=== PATIENT | male | born 1950 | race Caucasian/White ===

== ENCOUNTER 2018-06-16 12:43 | Emergency (ER) | payer OTHER ==
[2018-06-16 13:53] LABS: Absolute Lymphocytes (CBC) 0.9 K/uL (0.7-4.9); Absolute Monocytes 0.9 K/uL (0.1-1.3); Absolute Neutrophil 8.8 K/uL (1.8-8.0); Basophils % 0.5 % (0-1.3); Eosinophils % 0.7 % (0-4.4); Hematocrit 45.6 % (39.6-49.0); Lymphocytes % 8.8 % (15.3-44.8); MCH 29.7 pg (27.0-35.0); MCV 84.8 fL (80-100); MPV 8.4 fL (7.6-11.3); Monocytes % 8.6 % (3.3-12.3); RBC Red Blood Cell Count 5.38 M/uL (4.33-5.43)
[2018-06-16 13:56] LABS: Protime INR 1.11
[2018-06-16 14:08] LABS: ALT/SGPT 42 U/L (12-78); AST/SGOT 22 U/L (15-37); Albumin 3.7 g/dL (3.4-5.0); Alkaline Phosphatase 139 U/L (45-117); BUN Blood Urea Nitrogen 13 mg/dL (7-18); Bicarbonate 26 mmol/L (21-32); Bilirubin Direct 0.2 mg/dL (0-0.2); Bilirubin Total 0.9 mg/dL (0.2-1.0); Glucose Level 115 mg/dL (74-106); Magnesium 2.4 mg/dL (1.8-2.4); NT PRO-BNP 65 pg/mL (<125); Potassium 3.9 mmol/L (3.5-5.1); Protein, Total 7.6 g/dL (6.4-8.2); Sodium Level 139 mmol/L (136-145); Troponin (Emerg Dept Use Only) < 0.02 ng/mL (0.0-0.045)
--- NOTE | 2018-06-16 14:38 | RAD REPORT ---
EXAM DESCRIPTION: Marylin Dempsey (2 Views)06/16/2018 2:16 pm CLINICAL HISTORY: Chest pain COMPARISON: 2012 FINDINGS: The lungs appear clear of acute infiltrate. The heart is normal size IMPRESSION: No acute abnormalities displayed
--- NOTE | 2018-06-16 15:52 | ER ---
Nurse's Notes [facility] Name: Blake Nixon Age: 68 yrs Sex: Male : 1950 Arrival Date: 06/16/2018 Time: 12:46 Bed 20 Private MD: Modesta Concepcion F Diagnosis: Chest pain, unspecified Presentation: 06/16 13:14 Presenting complaint: Patient states: has chronic sinus issues, sinus drainage, for iw past week has had pain in chest when he takes a deep breath X 1 week. Transition of care: patient was not received from another setting of care. Onset of symptoms was June 09, 2018. Risk Assessment: Do you want to hurt yourself or someone else? Patient reports no desire to harm self or others. Initial Sepsis Screen: Does the patient meet any 2 criteria? No. Patient's initial sepsis screen is negative. Does the patient have a suspected source of infection? No. Patient's initial sepsis screen is negative. Care prior to arrival: None. 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 - Social history:: Smoking status: . - Ebola Screening: : Patient negative for fever greater than or equal to 101.5 degrees Fahrenheit, and additional compatible Ebola Virus Disease symptoms Patient denies exposure to infectious person Patient denies travel to an Ebola-affected area in the 21 days before illness onset No symptoms or risks identified at this time. Screenin:32 Abuse screen: Denies threats or abuse. Nutritional screening: No deficits noted. em Tuberculosis screening: No symptoms or risk factors identified. Fall Risk None identified. Assessment: 13:34 General: Appears in no apparent distress. comfortable, Behavior is calm, cooperative, em Denies fever. Pain: Complains of pain in mid-sternal area Pain does not radiate. Pain began 2-3 days ago. Neuro: Level of Consciousness is awake, alert, obeys commands, Oriented to person, place, time, situation. Cardiovascular: Reports chest pain, Denies palpitations, shortness of breath, Capillary refill < 3 seconds Patient's skin is warm and dry. Respiratory: Reports pain with cough pain with movement Airway is patent Respiratory effort is even, unlabored, Respiratory pattern is regular, symmetrical, Breath sounds are clear bilaterally. GI: Abdomen is flat. : No signs and/or symptoms were reported regarding the genitourinary system. EENT: No signs and/or symptoms were reported regarding the EENT system. Derm: Skin is intact, Skin is pink, warm \T\ dry. Musculoskeletal: Range of motion: intact in all extremities. 13:45 General: The previous assessment is accurate. Call light remains within reach. . ss 14:30 Reassessment: Patient appears in no apparent distress at this time. Patient and/or em family updated on plan of care and expected duration. Pain level reassessed. Patient is alert, oriented x 3, equal unlabored respirations, skin warm/dry/pink. 15:54 Reassessment: Patient appears in no apparent distress at this time. Patient and/or em family updated on plan of care and expected duration. Pain level reassessed. Patient is alert, oriented x 3, equal unlabored respirations, skin warm/dry/pink. provider at bedside. 16:18 Reassessment: Patient appears in no apparent distress at this time. Patient and/or em family updated on plan of care and expected duration. Pain level reassessed. Patient is alert, oriented x 3, equal unlabored respirations, skin warm/dry/pink. Patient states symptoms have improved. Vital Signs: 13:17 BP 136 / 93; Pulse 116; Resp 18 S; Temp 99.0; Pulse Ox 100% on R/A; iw 13:48 BP 140 / 97; Pulse 97; Resp 18; Pulse Ox 94% on R/A; Pain 3/10; em 14:30 BP 131 / 81; Pulse 98; Resp 18; Pulse Ox 99% on R/A; Pain 3/10; em 16:06 BP 125 / 86; Pulse 96; Resp 16; Pulse Ox 99% on R/A; em ED Course: 12:46 Patient arrived in ED. as 12:46 Modesta Concepcion MD is Private Physician. as 13:10 Sergio Izaguirre LVN is Primary Nurse. em 13:13 Scott Vo NP is PHCP. pm1 13:13 Allan Easton MD is Attending Physician. pm1 13:16 Triage completed. iw 13:20 Arm band placed on. iw 13:31 Initial lab(s) drawn, by me, sent to lab. Inserted saline lock: 20 gauge in right em antecubital area, using aseptic technique. Blood collected. Patient maintains SpO2 saturation greater than 95% on room air. 13:32 Patient has correct armband on for positive identification. Placed in gown. Bed in low em position. Call light in reach. Side rails up X2. therapeutic specialist on. Pulse ox on. NIBP on. 13:39 EKG done, by technology teacher. reviewed by Scott Vo NP. at1 14:15 Chest Pa And Lat (2 Views) XRAY In Process Unspecified. EDMS 15:51 Modesta Concepcion MD is Referral Physician. pm1 16:15 No provider procedures requiring assistance completed. IV discontinued, intact, em bleeding controlled, No redness/swelling at site. Pressure dressing applied. Administered Medications: No medications were administered Outcome: 15:51 Discharge ordered by MD. pm1 16:15 Discharged to home via wheelchair. em 16:15 Condition: good 16:15 Discharge instructions given to patient, Instructed on discharge instructions, follow up and referral plans. no drinking with medication, no driving heavy equipment, medication usage, Demonstrated understanding of instructions, follow-up care, medications, Prescriptions given X 3. 16:20 Patient left the ED. em Signatures: Dispatcher [employer] EDTN Sergio Izaguirre LVN DEAN OF ADMISSIONS em Courtney Snow Irene, BRANDI PAZ Veronica Malloy RN RN Mary Peña, piece hand EKG Tat1 Scott Vo NP QUALITY CONTROLLER pm1
--- NOTE | 2018-06-16 15:52 | EDPHYS ---
Physician Documentation [facility] Name: Blake Nixon Age: 68 yrs Sex: Male : 1950 Arrival Date: 06/16/2018 Time: 12:46 Bed 20 Private MD: Modesta Concepcion F ED Physician Allan Easton HPI: 06/16 14:00 This 68 yrs old Male presents to ER via Wheelchair with complaints of Chest pm1 Pain. 14:00 The patient or guardian reports chest pain that is located primarily in the mid-sternal pm1 area. Onset: 1 week(s) ago. The pain does not radiate. Associated signs and symptoms: Pertinent positives: resolution of cough recently due to sinus issues and post-nasal drainge, Pertinent negatives: abdominal pain, headache, nausea, shortness of breath, vomiting. The chest pain is described as sharp. Duration: The patient or guardian reports multiple episodes, that have now resolved. Modifying factors: the symptoms are aggravated by cough, deep breath, palpation of area. Severity of pain: in the emergency department the pain has resolved. The patient has not experienced similar symptoms in the past. The patient has not recently seen a physician. Patient recalls lifting refrigerator prior to onset of symptoms. Historical: - Allergies: 13:17 NKA; iw - Home Meds: 13:19 aspirin 325 mg Oral tab 1 tab once daily [Active]; Crestor 40 mg oral tab 1 tab once iw daily [Active]; amlodipine 10 mg tab 1 tab once daily [Active]; quinapril 10 mg Oral tab 1 tab 2 times per day [Active]; folic acid 1 mg Oral tab 1 tab once daily [Active]; lansoprazole 30 mg oral cpDR 1 cap once daily [Active]; - PMHx: 13:20 CVA; Hyperlipidemia; Hypertension; iw - PSHx: 13:17 Bicep Transplant; Knee surgery; Cholecystectomy; Hand; iw - Immunization history:: Adult Immunizations. - Social history:: Smoking status: . - Ebola Screening: : Patient negative for fever greater than or equal to 101.5 degrees Fahrenheit, and additional compatible Ebola Virus Disease symptoms Patient denies exposure to infectious person Patient denies travel to an Ebola-affected area in the 21 days before illness onset No symptoms or risks identified at this time. ROS: 14:00 Constitutional: Negative for fever, chills, and weight loss, Eyes: Negative for injury, pm1 pain, redness, and discharge, ENT: Negative for injury, pain, and discharge, Neck: Negative for injury, pain, and swelling. 14:00 Respiratory: Negative for shortness of breath, cough, wheezing, and pleuritic chest pain, Abdomen/GI: Negative for abdominal pain, nausea, vomiting, diarrhea, and constipation, Back: Negative for injury and pain, MS/Extremity: Negative for injury and deformity, Skin: Negative for injury, rash, and discoloration, Neuro: Negative for headache, weakness, numbness, tingling, and seizure. 14:00 Cardiovascular: Positive for chest pain, Negative for edema, orthopnea, palpitations. Exam: 14:00 Constitutional: This is a well developed, well nourished patient who is awake, alert, pm1 and in no acute distress. Head/Face: Normocephalic, atraumatic. Eyes: Pupils equal round and reactive to light, extra-ocular motions intact. Lids and lashes normal. Conjunctiva and sclera are non-icteric and not injected. Cornea within normal limits. Periorbital areas with no swelling, redness, or edema. ENT: Nares patent. No nasal discharge, no septal abnormalities noted. Tympanic membranes are normal and external auditory canals are clear. Oropharynx with no redness, swelling, or masses, exudates, or evidence of obstruction, uvula midline. Mucous membranes moist. Neck: Trachea midline, no thyromegaly or masses palpated, and no cervical lymphadenopathy. Supple, full range of motion without nuchal rigidity, or vertebral point tenderness. No Meningismus. 14:00 Cardiovascular: Regular rate and rhythm with a normal S1 and S2. No gallops, murmurs, or rubs. Normal PMI, no JVD. No pulse deficits. Respiratory: Lungs have equal breath sounds bilaterally, clear to auscultation and percussion. No rales, rhonchi or wheezes noted. No increased work of breathing, no retractions or nasal flaring. Abdomen/GI: Soft, non-tender, with normal bowel sounds. No distension or tympany. No guarding or rebound. No evidence of tenderness throughout. Back: No spinal tenderness. No costovertebral tenderness. Full range of motion. Skin: Warm, dry with normal turgor. Normal color with no rashes, no lesions, and no evidence of cellulitis. MS/ Extremity: Pulses equal, no cyanosis. Neurovascular intact. Full, normal range of motion. 14:00 Chest/axilla: Inspection: normal, Palpation: crepitus, is not appreciated, tenderness, that is mild, of the mid-sternal area, that totally reproduces the patient's complaints. 14:00 Neuro: Orientation: is normal, Motor: is normal, moves all fours, Sensation: is normal, no obvious gross deficits. Vital Signs: 13:17 BP 136 / 93; Pulse 116; Resp 18 S; Temp 99.0; Pulse Ox 100% on R/A; iw 13:48 BP 140 / 97; Pulse 97; Resp 18; Pulse Ox 94% on R/A; Pain 3/10; em 14:30 BP 131 / 81; Pulse 98; Resp 18; Pulse Ox 99% on R/A; Pain 3/10; em 16:06 BP 125 / 86; Pulse 96; Resp 16; Pulse Ox 99% on R/A; em MDM: 13:13 Patient medically screened. pm1 15:51 Data reviewed: vital signs. Counseling: I had a detailed discussion with the patient pm1 and/or guardian regarding: the historical points, exam findings, and any diagnostic results supporting the discharge/admit diagnosis, lab results, radiology results, the need for outpatient follow up, to return to the emergency department if symptoms worsen or persist or if there are any questions or concerns that arise at home. 06/16 13:21 Order name: Basic Metabolic Panel; Complete Time: 14:18 pm1 06/16 13:21 Order name: CBC with Diff; Complete Time: 14:18 pm1 06/16 13:21 Order name: LFT's; Complete Time: 14:18 pm1 06/16 13:21 Order name: Magnesium; Complete Time: 14:18 pm1 06/16 13:21 Order name: NT PRO-BNP; Complete Time: 14:18 pm1 06/16 13:21 Order name: PT-INR; Complete Time: 14:18 pm1 06/16 13:21 Order name: Troponin (emerg Dept Use Only); Complete Time: 14:18 pm1 06/16 13:21 Order name: EKG; Complete Time: 13:22 pm1 06/16 13:21 Order name: Cardiac monitoring; Complete Time: 13:31 pm1 06/16 13:21 Order name: EKG - Nurse/Tech; Complete Time: 13:48 pm1 06/16 13:21 Order name: IV Saline Lock; Complete Time: 13:31 pm1 06/16 13:21 Order name: Labs collected and sent; Complete Time: 13:31 pm1 06/16 13:21 Order name: O2 Per Protocol; Complete Time: 13:31 pm1 06/16 13:21 Order name: Chest Pa And Lat (2 Views) XRAY; Complete Time: 15:06 pm1 06/16 13:21 Order name: O2 Sat Monitoring; Complete Time: 13:31 pm1 Administered Medications: No medications were administered Disposition: 16:25 Co-signature as Attending Physician, Allan Easton MD I agree with the assessment and kdr plan of care. Disposition: 06/16/18 15:51 Discharged to Home. Impression: Chest pain, unspecified. - Condition is Stable. - Discharge Instructions: Nonspecific Chest Pain. - Prescriptions for Naprosyn 500 mg Oral Tablet - take 1 tablet by ORAL route 2 times per day take with food; 30 tablet. Tylenol- Codeine #3 300-30 mg Oral Tablet - take 2 tablets by ORAL route every 6 hours As needed; 20 tablet. Cyclobenzaprine 10 mg Oral Tablet - take 1 tablet by ORAL route every 8 hours As needed; 30 tablet. - Medication Reconciliation Form, Thank You Letter form. - Follow up: Emergency Department; When: As needed; Reason: Worsening of condition. Follow up: Modesta Concepcion MD; When: 2 - 3 days; Reason: Recheck today's complaints, Continuance of care, Re-evaluation by your physician. - Problem is new. - Symptoms have improved. Signatures: Dispatcher [employer] EDMS Allan Easton MD MD kdr Munoz, Edgar, INDUSTRIAL TECHNOLOGY EDUCATION TEACHER INDUSTRIAL TECHNOLOGY EDUCATION TEACHER em Mirna Alcala, BRANDI RN iw Scott Vo, KAJAL HARDNESS INSPECTOR pm1 Corrections: (The following items were deleted from the chart) 16:20 15:51 06/16/2018 15:51 Discharged to Home. Impression: Chest pain, unspecified. em Condition is Stable. Forms are Medication Reconciliation Form, Thank You Letter, Antibiotic Education, Prescription Opioid Use. Follow up: Emergency Department; When: As needed; Reason: Worsening of condition. Follow up: Modesta Concepcion; When: 2 - 3 days; Reason: Recheck today's complaints, Continuance of care, Re-evaluation by your physician. Problem is new. Symptoms have improved. pm1
[2018-06-16 16:24] VITALS: TEMP 99
[2018-06-16 16:27] VITALS: O2SAT 99
[2018-06-16 16:28] VITALS: BP 125/86
--- NOTE | 2018-06-17 04:18 | EKG ---
Test Date: 2018-06-16 Test Time: 13:40:35 Stock Clerk: ANALI MEASUREMENT RESULTS: Intervals: Rate: 102 TN: 186 QRSD: 78 QT: 330 QTc: 430 Council: P: 33 TN: 186 QRS: -2 T: 38 INTERPRETIVE STATEMENTS: Sinus tachycardia with occasional premature ventricular complexes Otherwise normal ECG Compared to ECG 12/08/2012 00:56:19 Sinus rhythm no longer present Left ventricular hypertrophy no longer present Electronically Signed On 06-17-18 04:17:15 CDT by Terell Harley
== END 2018-06-16 16:20 | disposition home or self-care (01) ==
LOC: ER 12:43
DX: R07.9 Chest pain, unspecified (principal); E78.5 Hyperlipidemia, unspecified; I10 Essential (primary) hypertension; Z86.73 Personal history of transient ischemic attack (TIA), and cerebral infarction without residual deficits
CPT/HCPCS: 36415; 71046; 80048; 80076; 83735; 83880; 84484; 85025; 85610; 93005; 99285

== ENCOUNTER 2020-02-27 19:51 | Emergency (ER) | payer OTHER ==
--- NOTE | 2020-02-27 20:34 | ER ---
Nurse's Notes [facility] Name: Blake Nixon Age: 70 yrs Sex: Male : 1950 Arrival Date: 02/27/2020 Time: 19:56 Bed 15 Private MD: Modesta Concepcion F Diagnosis: Bitten by cat Presentation: 02/26 19:58 Chief complaint: Patient states: "I was giving my cat treats. I started to pet her jd3 afterwards and she bit down on my hand getting my pointer finger on my right hand.". Coronavirus screen: Proceed with normal triage. Ebola Screen: Patient negative for fever greater than or equal to 101.5 degrees Fahrenheit, and additional compatible Ebola Virus Disease symptoms. Initial Sepsis Screen: Does the patient meet any 2 criteria? No. Patient's initial sepsis screen is negative. Does the patient have a suspected source of infection? No. Patient's initial sepsis screen is negative. Risk Assessment: Do you want to hurt yourself or someone else? Patient reports no desire to harm self or others. Onset of symptoms was February 27, 2020. 19:58 Method Of Arrival: Ambulatory jd3 19:58 Acuity: GISSEL 3 jd3 Triage Assessment: 20:48 Bite description: bite sustained to right hand by a cat, animal information: mg2 vaccination(s) is current. General: Appears in no apparent distress. Historical: - Allergies: 20:04 No Known Allergies; jd3 - Home Meds: 20:04 amlodipine 10 mg tab 1 tab once daily [Active]; quinapril 10 mg Oral tab 1 tab 2 times jd3 per day [Active]; aspirin 325 mg Oral tab 1 tab twice a day [Active]; folic acid 1 mg Oral tab 1 tab once daily [Active]; lansoprazole 30 mg Oral cpDR 1 cap once daily [Active]; - PMHx: 20:04 CVA; Hyperlipidemia; Hypertension; jd3 - PSHx: 20:04 Bicep Transplant; Knee surgery; Cholecystectomy; Hand; jd3 - Immunization history:: Adult Immunizations up to date, Last tetanus immunization: not up to date. - Social history:: Smoking status: Patient denies any tobacco usage or history of. - Family history:: not pertinent. Screenin:47 Abuse screen: Denies threats or abuse. Denies injuries from another. Nutritional mg2 screening: No deficits noted. Tuberculosis screening: No symptoms or risk factors identified. Fall Risk None identified. Assessment: 20:46 General: Appears in no apparent distress. comfortable, Behavior is calm, cooperative. mg2 Pain: Complains of pain in right hand. Neuro: Level of Consciousness is awake, alert, obeys commands, Oriented to person, place, time, situation. Cardiovascular: Capillary refill < 3 seconds Patient's skin is warm and dry. Respiratory: Airway is patent Respiratory effort is even, unlabored, Respiratory pattern is regular, symmetrical. GI: No signs and/or symptoms were reported involving the gastrointestinal system. : No signs and/or symptoms were reported regarding the genitourinary system. EENT: No signs and/or symptoms were reported regarding the EENT system. Derm: Skin small bites at the base of right index finger. Musculoskeletal: Circulation, motion, and sensation intact. Capillary refill < 3 seconds. Injury Description: Bite sustained to right index finger caused by a cat, is superficial, was sustained 4-6 hours ago. Vital Signs: 20:04 BP 140 / 102; Pulse 108; Resp 17 S; Temp 98.1(O); Pulse Ox 99% on R/A; Weight 102.06 kg jd3 (R); Height 6 ft. 4 in. (193.04 cm) (R); Pain 1/10; 21:41 BP 138 / 89; Pulse 95; Resp 18; Temp 98; Pulse Ox 100% on R/A; mg2 20:04 Body Mass Index 27.39 (102.06 kg, 193.04 cm) jd3 ED Course: 19:56 Patient arrived in ED. es 19:56 Modesta Concepcion MD is Private Physician. es 20:01 Triage completed. jd3 20:04 Arm band placed on. jd3 20:17 Terrance Houser MD is Attending Physician. leopoldo 20:32 Gera Gracia RN is Primary Nurse. mg2 20:33 Modesta Concepcion MD is Referral Physician. leopoldo 20:35 Cam Ricketts MD is Referral Physician. leopoldo 20:47 No provider procedures requiring assistance completed. Patient did not have IV access mg2 during this emergency room visit. Wound care: to small bites in the right index fin dianh no active bleeding, cleaned with CHG and NS. 20:48 Patient has correct armband on for positive identification. mg2 20:55 Hand Right 3 View XRAY In Process Unspecified. EDMS Administered Medications: 20:43 Drug: Tetanus-Diphtheria Toxoid Adult 0.5 ml {Oil Well Engineer: [email or web address]. Exp: mg2 10/12/2021. Lot #: [id number]. } Route: IM; Site: right deltoid; 21:41 Follow up: Response: No adverse reaction mg2 21:41 Drug: Augmentin 875 mg Route: PO; mg2 21:41 Follow up: Response: No adverse reaction; Medication administered at discharge. mg2 Outcome: 20:34 Discharge ordered by . leopoldo 21:42 Discharged to home ambulatory. mg2 21:42 Condition: stable 21:42 Discharge instructions given to patient, Instructed on discharge instructions, follow up and referral plans. medication usage, wound care, Demonstrated understanding of instructions, follow-up care, medications, Prescriptions given X 2. 21:42 Patient left the ED. mg2 Signatures: Dispatcher [employer] EDMS Terrance Houser MD MD cha Salyer, Edna es Davies, Jonathon, RN RN Gera Mack RN RN mg2 Corrections: (The following items were deleted from the chart) 21:20 19:58 Acuity: GISSEL 4 jd3 iris
--- NOTE | 2020-02-27 20:34 | EDPHYS ---
Physician Documentation [facility] Name: Blake Nixon Age: 70 yrs Sex: Male : 1950 Arrival Date: 02/27/2020 Time: 19:56 Bed 15 Private MD: Modesta Concepcion F ED Physician Terrance Houser HPI: 02/26 20:30 This 70 yrs old Male presents to ER via Ambulatory with complaints of Cat leopoldo Bite. 20:30 by a cat, having a seizure. Onset: The symptoms/episode began/occurred just prior to the [facility] arrival. Animal information: The animal was reported to appear healthy. Animal's vaccinations are up to date. Secondary to the bite the patient reports multiple puncture wounds, that are deep. Associated signs and symptoms: The patient has no apparent associated signs or symptoms. Severity of symptoms: At their worst the symptoms were mild, moderate, in the emergency department the symptoms are unchanged. The patient has not experienced similar symptoms in the past. Historical: - Allergies: 20:04 No Known Allergies; jd3 - Home Meds: 20:04 amlodipine 10 mg tab 1 tab once daily [Active]; quinapril 10 mg Oral tab 1 tab 2 times jd3 per day [Active]; aspirin 325 mg Oral tab 1 tab twice a day [Active]; folic acid 1 mg Oral tab 1 tab once daily [Active]; lansoprazole 30 mg Oral cpDR 1 cap once daily [Active]; - PMHx: 20:04 CVA; Hyperlipidemia; Hypertension; jd3 - PSHx: 20:04 Bicep Transplant; Knee surgery; Cholecystectomy; Hand; jd3 - Immunization history:: Adult Immunizations up to date, Last tetanus immunization: not up to date. - Social history:: Smoking status: Patient denies any tobacco usage or history of. - Family history:: not pertinent. ROS: 20:30 Constitutional: Negative for fever, chills, and weight loss, Eyes: Negative for injury, leopoldo pain, redness, and discharge, ENT: Negative for injury, pain, and discharge, Neck: Negative for injury, pain, and swelling, Cardiovascular: Negative for chest pain, palpitations, and edema, Respiratory: Negative for shortness of breath, cough, wheezing, and pleuritic chest pain, Abdomen/GI: Negative for abdominal pain, nausea, vomiting, diarrhea, and constipation, Back: Negative for injury and pain, : Negative for injury, bleeding, discharge, and swelling, Skin: Negative for injury, rash, and discoloration, Neuro: Negative for headache, weakness, numbness, tingling, and seizure, Psych: Negative for depression, anxiety, suicide ideation, homicidal ideation, and hallucinations, Allergy/Immunology: Negative for hives, rash, and allergies, Endocrine: Negative for neck swelling, polydipsia, polyuria, polyphagia, and marked weight changes, Hematologic/Lymphatic: Negative for swollen nodes, abnormal bleeding, and unusual bruising. 20:30 MS/extremity: Positive for decreased range of motion, pain, puncture, swelling, tenderness, of the dorsal aspect of proximal phalanx of right index finger, dorsum of right hand and palmar aspect of proxima; phalanx of right index finger. Exam: 20:30 Constitutional: This is a well developed, well nourished patient who is awake, alert, leopoldo and in no acute distress. Head/Face: Normocephalic, atraumatic. Eyes: Pupils equal round and reactive to light, extra-ocular motions intact. Lids and lashes normal. Conjunctiva and sclera are non-icteric and not injected. Cornea within normal limits. Periorbital areas with no swelling, redness, or edema. ENT: Nares patent. No nasal discharge, no septal abnormalities noted. Tympanic membranes are normal and external auditory canals are clear. Oropharynx with no redness, swelling, or masses, exudates, or evidence of obstruction, uvula midline. Mucous membranes moist. Neck: Trachea midline, no thyromegaly or masses palpated, and no cervical lymphadenopathy. Supple, full range of motion without nuchal rigidity, or vertebral point tenderness. No Meningismus. Chest/axilla: Normal chest wall appearance and motion. Nontender with no deformity. No lesions are appreciated. Cardiovascular: Regular rate and rhythm with a normal S1 and S2. No gallops, murmurs, or rubs. Normal PMI, no JVD. No pulse deficits. Respiratory: Lungs have equal breath sounds bilaterally, clear to auscultation and percussion. No rales, rhonchi or wheezes noted. No increased work of breathing, no retractions or nasal flaring. Abdomen/GI: Soft, non-tender, with normal bowel sounds. No distension or tympany. No guarding or rebound. No evidence of tenderness throughout. Back: No spinal tenderness. No costovertebral tenderness. Full range of motion. Male : Normal genitalia with no discharge or lesions. Skin: Warm, dry with normal turgor. Normal color with no rashes, no lesions, and no evidence of cellulitis. Neuro: Awake and alert, GCS 15, oriented to person, place, time, and situation. Cranial nerves II-XII grossly intact. Motor strength 5/5 in all extremities. Sensory grossly intact. Cerebellar exam normal. Normal gait. Psych: Awake, alert, with orientation to person, place and time. Behavior, mood, and affect are within normal limits. 20:30 Musculoskeletal/extremity: Extremities: all appear grossly normal, with no appreciated pain with palpation, ROM: full active range of motion, full passive range of motion, limited active range of motion due to pain, limited passive range of motion due to pain, in the right hand. Vital Signs: 20:04 BP 140 / 102; Pulse 108; Resp 17 S; Temp 98.1(O); Pulse Ox 99% on R/A; Weight 102.06 kg jd3 (R); Height 6 ft. 4 in. (193.04 cm) (R); Pain 1/10; 21:41 BP 138 / 89; Pulse 95; Resp 18; Temp 98; Pulse Ox 100% on R/A; mg2 20:04 Body Mass Index 27.39 (102.06 kg, 193.04 cm) jd3 MDM: 20:17 Patient medically screened. leopoldo 20:35 Differential diagnosis: bite, multiple. Rabies Status: Rabies immunization is not leopoldo indicated. Data reviewed: vital signs, nurses notes, radiologic studies, plain films. Data interpreted: clam sorter: not applicable for this patient encounter. rate is 105 beats/min, Pulse oximetry: on room air is 99 %. Test interpretation: by ED physician or midlevel provider: plain radiologic studies. Counseling: I had a detailed discussion with the patient and/or guardian regarding: the historical points, exam findings, and any diagnostic results supporting the discharge/admit diagnosis, radiology results, the need for outpatient follow up, for definitive care, a hand specialist. ED course: bitten by his own cat, having aseizure. 02/26 20:30 Order name: Hand Right 3 View XRAY [facility] 02/26 20:30 Order name: Wound dressing; Complete Time: 20:32 [facility] Administered Medications: 20:43 Drug: Tetanus-Diphtheria Toxoid Adult 0.5 ml {[employer] Technician: [employer]. Exp: mg2 10/12/2021. Lot #: [id number]. } Route: IM; Site: right deltoid; 21:41 Follow up: Response: No adverse reaction mg2 21:41 Drug: Augmentin 875 mg Route: PO; mg2 21:41 Follow up: Response: No adverse reaction; Medication administered at discharge. mg2 Disposition: 02/27/20 20:34 Discharged to Home. Impression: Bitten by cat. - Condition is Stable. - Discharge Instructions: Animal Bite, [id number], Animal Bite. - Prescriptions for Augmentin 875- 125 mg Oral Tablet - take 1 tablet by ORAL route every 12 hours for 10 days; 20 tablet. Tylenol- Codeine #3 300-30 mg Oral Tablet - take 2 tablets by ORAL route every 6 hours As needed; 20 tablet. - Medication Reconciliation Form, Thank You Letter, Antibiotic Education, Prescription Opioid Use form. - Follow up: Modesta Concepcion MD; When: 2 - 3 days; Reason: Recheck today's complaints, Continuance of care, Re-evaluation by your physician. Follow up: Cam Ricketts MD; When: 2 - 3 days; Reason: Recheck today's complaints, Re-evaluation by your physician. - Problem is new. - Symptoms have improved. Signatures: Dispatcher [employer] EDTerrance Gallegos MD MD cha Davies, Jonathon, RN RN jGera Yadav RN RN mg2 Corrections: (The following items were deleted from the chart) 20:35 20:34 02/27/2020 20:34 Discharged to Home. Impression: Bitten by cat. Condition is leopoldo Stable. Forms are Medication Reconciliation Form, Thank You Letter, Antibiotic Education, Prescription Opioid Use. Follow up: Modesta Concepcion; When: 2 - 3 days; Reason: Recheck today's complaints, Continuance of care, Re-evaluation by your physician. Problem is new. Symptoms have improved. [facility] 21:42 20:35 02/27/2020 20:34 Discharged to Home. Impression: Bitten by cat. Condition is mg2 Stable. Discharge Instructions: Animal Bite, [id number], Animal Bite. Prescriptions for Augmentin 875-125 mg Oral Tablet - take 1 tablet by ORAL route every 12 hours for 10 days; 20 tablet, Tylenol-Codeine #3 300-30 mg Oral Tablet - take 2 tablets by ORAL route every 6 hours As needed; 20 tablet. and Forms are Medication Reconciliation Form, Thank You Letter, Antibiotic Education, Prescription Opioid Use. Follow up: Modesta Concepcion; When: 2 - 3 days; Reason: Recheck today's complaints, Continuance of care, Re-evaluation by your physician. Follow up: Cam Ricketts; When: 2 - 3 days; Reason: Recheck today's complaints, Re-evaluation by your physician. Problem is new. Symptoms have improved. leopoldo
[2020-02-27] MEDS ORDERED: TETANUS & DIPHTHERIA TOX,ADULT 0.5 ML VIAL ONE (20:44)
--- NOTE | 2020-02-27 21:08 | RAD REPORT ---
EXAM DESCRIPTION: RAD - Hand Right 3 View - 02/27/2020 8:55 pm CLINICAL HISTORY: PAIN, cat bite right second digit COMPARISON: <Comparisons> FINDINGS: No fracture is identified. There is no dislocation or periosteal reaction noted. Second d igit soft tissue swelling is present. No foreign body is seen. Moderate degenerative change present at the first MCP joint. Mild degenerative change at the trapezia l first metacarpal articulation. IMPRESSION: Right second digit soft tissue swelling without foreign body. No acute bone finding.
[2020-02-27] MEDS ORDERED: AMOX/K CLAV 875 MG TAB ONE (21:37)
[2020-02-27 21:50] VITALS: BP 138/89; TEMP 98; O2SAT 100
== END 2020-02-27 21:42 | disposition home or self-care (01) ==
LOC: ER 19:51
DX: S61.230A Puncture wound without foreign body of right index finger without damage to nail, initial encounter (principal); W55.01XA Bitten by cat, initial encounter; Y93.89 Activity, other specified; Y92.9 Unspecified place or not applicable; I10 Essential (primary) hypertension; E78.5 Hyperlipidemia, unspecified; Z79.82 Long term (current) use of aspirin; Z23 Encounter for immunization
CPT/HCPCS: 90471; 90714; 99284

== ENCOUNTER 2020-07-03 07:44 | Emergency (ER) | payer OTHER ==
[2020-07-03] MEDS ORDERED: CEPHALEXIN 250 MG CAP ONE (08:37)
--- NOTE | 2020-07-03 09:01 | EDPHYS ---
Physician Documentation [facility] Name: Blake Nixon Age: 70 yrs Sex: Male : 1950 Arrival Date: 07/03/2020 Time: 07:46 Bed 17 Private MD: Modesta Concepcion F ED Physician Allan Easton HPI: 07/03 09:30 This 70 yrs old Male presents to ER via Ambulatory with complaints of Wound kdr Check. 09:30 Patient presents to ED for recheck of: Abrasion to right great toe. The affected area kdr is on the right first toe and Right first toenail. Historical: - Allergies: 08:03 No Known Allergies; iw - Home Meds: 08:03 amlodipine 10 mg tab 1 tab once daily [Active]; aspirin 325 mg Oral tab 1 tab twice a iw day [Active]; Crestor 40 mg Oral tab 1 tab once daily [Active]; folic acid 1 mg Oral tab 1 tab once daily [Active]; lansoprazole 30 mg Oral cpDR 1 cap once daily [Active]; quinapril 10 mg Oral tab 1 tab 2 times per day [Active]; - PMHx: 08:03 Hyperlipidemia; CVA; Hypertension; iw - PSHx: 08:03 Bicep Transplant; Knee surgery; Cholecystectomy; Hand; iw - Immunization history:: Adult Immunizations up to date. - Social history:: Smoking status: Patient/guardian denies using. ROS: 09:30 Constitutional: Negative for fever, chills, and weight loss. kdr 09:30 Skin: Positive for abrasion(s), of the right first toe and Right first toenail. Exam: 09:30 Constitutional: This is a well developed, well nourished patient who is awake, alert, kdr and in no acute distress. 09:30 Skin: injury, abrasion(s), small abrasion noted, of the right first toe and Right first toenail. Vital Signs: 07:59 BP 153 / 86; Pulse 109; Resp 18 S; Temp 98(TE); Pulse Ox 100% on R/A; Weight 104.33 kg; iw Height 6 ft. 4 in. (193.04 cm); 07:59 Body Mass Index 28.00 (104.33 kg, 193.04 cm) iw MDM: 09:01 Patient medically screened. kdr 09:30 Data reviewed: vital signs, nurses notes, radiologic studies. Counseling: I had a kdr detailed discussion with the patient and/or guardian regarding: the historical points, exam findings, and any diagnostic results supporting the discharge/admit diagnosis, radiology results, the need for outpatient follow up. ED course: Wound cleaned and dried - pt tolerated well. 07/03 08:21 Order name: Foot Right 3 View XRAY kdr 07/03 08:21 Order name: Misc. Order: clean and dress wound on toe; Complete Time: 09:16 kdr Administered Medications: 08:27 Drug: KeFLEX 500 mg Route: PO; iw Disposition: 07/03/20 09:01 Discharged to Home. Impression: Abrasion, right great toe. - Condition is Stable. - Discharge Instructions: Abrasion, [id number]. - Prescriptions for Keflex 500 mg Oral Capsule - take 1 capsule by ORAL route every 8 hours for 7 days; 21 capsule. - Medication Reconciliation Form, Thank You Letter, Antibiotic Education form. - Follow up: Modesta Concepcion MD; When: 2 - 3 days; Reason: If symptoms return, Further diagnostic work-up, Recheck today's complaints, Continuance of care, Re-evaluation by your physician. - Problem is new. - Symptoms have improved. Signatures: Dispatcher [employer] EDMS Allan Easton MD MD [facility] Mirna Alcala RN RN iw Corrections: (The following items were deleted from the chart) 09:19 09:01 07/03/2020 09:01 Discharged to Home. Impression: Abrasion, right great toe. iw Condition is Stable. Forms are Medication Reconciliation Form, Thank You Letter, Antibiotic Education, Prescription Opioid Use. Follow up: Modesta Concepcion; When: 2 - 3 days; Reason: If symptoms return, Further diagnostic work-up, Recheck today's complaints, Continuance of care, Re-evaluation by your physician. Problem is new. Symptoms have improved. kdr
--- NOTE | 2020-07-03 09:01 | ER ---
Nurse's Notes [facility] Name: Blake Nixon Age: 70 yrs Sex: Male : 1950 Arrival Date: 07/03/2020 Time: 07:46 Bed 17 Private MD: Modesta Concepcion F Diagnosis: Abrasion, right great toe Presentation: 07/03 07:59 Chief complaint: Patient states: kicked his right great toe against his refrigerator iw about a week ago , wound has not gotten better, not diabetic. Coronavirus screen: At this time, the client does not indicate any symptoms associated with coronavirus-19. Ebola Screen: Patient negative for fever greater than or equal to 101.5 degrees Fahrenheit, and additional compatible Ebola Virus Disease symptoms Patient denies exposure to infectious person. Patient denies travel to an Ebola-affected area in the 21 days before illness onset. No symptoms or risks identified at this time. Initial Sepsis Screen: Does the patient meet any 2 criteria? No. Patient's initial sepsis screen is negative. Does the patient have a suspected source of infection? No. Patient's initial sepsis screen is negative. Risk Assessment: Do you want to hurt yourself or someone else? Patient reports no desire to harm self or others. Onset of symptoms was June 25, 2020. 07:59 Method Of Arrival: Ambulatory iw 07:59 Acuity: GISSEL 4 iw Historical: - Allergies: 08:03 No Known Allergies; iw - Home Meds: 08:03 amlodipine 10 mg tab 1 tab once daily [Active]; aspirin 325 mg Oral tab 1 tab twice a iw day [Active]; Crestor 40 mg Oral tab 1 tab once daily [Active]; folic acid 1 mg Oral tab 1 tab once daily [Active]; lansoprazole 30 mg Oral cpDR 1 cap once daily [Active]; quinapril 10 mg Oral tab 1 tab 2 times per day [Active]; - PMHx: 08:03 Hyperlipidemia; CVA; Hypertension; iw - PSHx: 08:03 Bicep Transplant; Knee surgery; Cholecystectomy; Hand; iw - Immunization history:: Adult Immunizations up to date. - Social history:: Smoking status: Patient/guardian denies using. Screenin:06 Abuse screen: Denies threats or abuse. Nutritional screening: No deficits noted. iw Tuberculosis screening: No symptoms or risk factors identified. Fall Risk None identified. Assessment: 08:06 General: Appears in no apparent distress. comfortable, Behavior is calm, cooperative. iw Pain: Denies pain. Neuro: Level of Consciousness is awake, alert, obeys commands, Oriented to person, place, time, situation. Cardiovascular: Capillary refill < 3 seconds Patient's skin is warm and dry. Respiratory: Airway is patent Respiratory effort is even, unlabored, Respiratory pattern is regular, symmetrical. GI: No signs and/or symptoms were reported involving the gastrointestinal system. : No signs and/or symptoms were reported regarding the genitourinary system. Derm: Wound noted Great toe on right foot. 09:00 Reassessment: Patient appears in no apparent distress at this time. No changes from iw previously documented assessment. Vital Signs: 07:59 BP 153 / 86; Pulse 109; Resp 18 S; Temp 98(TE); Pulse Ox 100% on R/A; Weight 104.33 kg; iw Height 6 ft. 4 in. (193.04 cm); 07:59 Body Mass Index 28.00 (104.33 kg, 193.04 cm) iw ED Course: 07:46 Patient arrived in ED. ag5 07:46 Modesta Concepcion MD is Private Physician. ag5 08:01 Triage completed. iw 08:02 Arm band placed on. iw 08:06 Patient has correct armband on for positive identification. Bed in low position. Call iw light in reach. Side rails up X 1. Pulse ox on. NIBP on. 08:07 Allan Easton MD is Attending Physician. kdr 08:54 Foot Right 3 View XRAY In Process Unspecified. EDMS 09:00 oMdesta Concepcion MD is Referral Physician. kdr 09:05 Mirna Alcala, BRANDI is Primary Nurse. iw 09:17 No provider procedures requiring assistance completed. Patient did not have IV access iw during this emergency room visit. Administered Medications: 08:27 Drug: KeFLEX 500 mg Route: PO; iw Outcome: 09:01 Discharge ordered by . kdr 09:17 Discharged to home ambulatory. iw 09:17 Condition: stable 09:17 Discharge instructions given to patient, Instructed on discharge instructions, follow up and referral plans. medication usage, Demonstrated understanding of instructions, follow-up care, medications, Prescriptions given X 1. 09:19 Patient left the ED. iw Signatures: Dispatcher [employer] EDAllan Spear MD MD kdr Williams, Irene, RN RN Claire Salazar ag5
--- NOTE | 2020-07-03 09:13 | RAD REPORT ---
EXAM DESCRIPTION: RAD - Foot Right 3 View - 07/03/2020 8:54 am CLINICAL HISTORY: Right foot pain status post injury FINDINGS: No fracture or dislocation is seen. No destructive lesion noted
[2020-07-03 10:28] VITALS: BP 153/86; TEMP 98; O2SAT 100
== END 2020-07-03 09:19 | disposition home or self-care (01) ==
LOC: ER 07:44
DX: S90.411D Abrasion, right great toe, subsequent encounter (principal); I10 Essential (primary) hypertension; E78.5 Hyperlipidemia, unspecified; Z79.82 Long term (current) use of aspirin; Z86.73 Personal history of transient ischemic attack (TIA), and cerebral infarction without residual deficits
CPT/HCPCS: 99284

== ENCOUNTER 2023-01-23 20:04 | Emergency (ER) | payer OTHER ==
[2023-01-23 21:09] LABS: Protime INR 1.07
[2023-01-23 21:11] LABS: Albumin 2.8 g/dL (3.4-5.0); Bilirubin Total 1.6 mg/dL (0.2-1.0); Magnesium 2.3 mg/dL (1.6-2.4); Potassium 3.7 mEq/L (3.5-5.1); Protein, Total 6.7 g/dL (6.4-8.2); Troponin High Sensitivity 50.4 pg/mL (<58.9)
--- NOTE | 2023-01-23 21:17 | RAD REPORT ---
EXAM DESCRIPTION: RAD - Chest Single View - 01/23/2023 8:41 pm CLINICAL HISTORY: weakness COMPARISON: Chest Single View dated 06/09/2022; Chest Single View dated 06/06/2022; Chest Pa And Lat (2 Views) dated 03/12/2021; Chest Pa And Lat (2 Views) dated 01/23/2020 FINDINGS: Lines: None. Lungs: No evidence of edema or pneumonia. Pleural: No significant pleural effusions or pneumothorax. Cardiac: The heart size is within normal limits. Mediastinum: Within normal limits. Bones: No acute fractures. Other: None IMPRESSION: No acute cardiopulmonary disease.
[2023-01-23] MEDS ORDERED: VANCOMYCIN 1 GM/VIAL ONE (21:25)
[2023-01-23] MEDS ORDERED: NA CHLORIDE 0.9% 250 ML ONE (21:25)
[2023-01-23] MEDS ORDERED: CEFEPIME 2 GM VIAL ONE (21:25)
[2023-01-23] MEDS ORDERED: NA CHLORIDE 0.9% 100 ML ONE (21:25)
[2023-01-23] MEDS ORDERED: NA CHLORIDE 0.9% 1,000 ML ONE (21:25)
[2023-01-23 21:27] LABS: Absolute Lymphocytes (CBC) 0.5 K/uL (0.7-4.9); Hematocrit 47.9 % (39.6-49.0); MCV 84.4 fL (80-100); MPV 10.9 fL (7.6-11.3); RBC Red Blood Cell Count 5.68 M/uL (4.33-5.43)
[2023-01-23 21:30] LABS: Platelet Estimate DECR; White Blood Cell Scan OK (OK)
[2023-01-23 21:31] LABS: Blood Morphology Comment NOT SEEN (NOT SEEN)
[2023-01-23 21:35] LABS: Arterial Blood Carboxyhemoglob 1.2 % (0-1.5); Blood O2 Saturation 95.5 % (92-98.5)
--- NOTE | 2023-01-23 22:58 | RAD REPORT ---
EXAM DESCRIPTION: CTAbdomen Pelvis W Contrast - 01/23/2023 10:48 pm CLINICAL HISTORY: Elevated LFT, abd swelling/pain COMPARISON: No comparisons TECHNIQUE: CT of the abdomen and pelvis was performed. All CT scans are performed using dose optimization technique as appropriate and may include automated exposure control or mA/KV adjustment according to patient size. FINDINGS: Lower chest: See chest CT report. Liver: No acute abnormality or suspicious lesions. Biliary: Cholecystectomy. Extrahepatic common bile duct measures 9 millimeters but which tapers pura lly towards the ampulla. This likely reflects the postcholecystectomy state. Stomach: No significant focal abnormality. Duodenum: No significant focal abnormality. Pancreas: No significant abnormality. Spleen: No significant abnormality. Adrenal: No suspicious lesions. Kidney/ureter: No hydronephrosis. No renal calculi. Left renal cysts. Retroperitoneum: No retroperitoneal adenopathy. Vascular: No aneurysm. Atherosclerosis . Bowel: Diverticulosis. No evidence acute diverticulitis. Moderate rectal stool.. Normal appendix . Peritoneum: No ascites or free air. Bladder: Grossly unremarkable. Reproductive: No adnexal masses. Bones: No acute fracture. Grade 1 anterolisthesis of L5 on S1 Other: n/a IMPRESSION: No acute intra-abdominal or pelvic finding. Normal appendix. Incidental findings as abov e .
--- NOTE | 2023-01-23 23:01 | RAD REPORT ---
EXAM DESCRIPTION: CT - Chest For Pe Angio - 01/23/2023 10:47 pm CLINICAL HISTORY: dyspnea, hypoxia COMPARISON: Chest For Pe Angio dated 06/07/2022 TECHNIQUE: Dynamically enhanced axial 3 mm thick images of the chest were obtained during administra tion of <100> mL Isovue 370 IV contrast. Coronal and oblique reconstruction images were generated and reviewed. Exam utilizes a protocol for optimal evaluation of pulmonary arterial tree. Maximum intensity projections 3D imaging was utilized All CT scans are performed using dose optimization technique as appropriate and may include automated exposure control or mA/KV adjustment according to patient size. FINDINGS: Chest Wall: No suspicious thyroid nodules or pathologic lymphadenopathy. Lungs: Mild dependent opacities favored to represent atelectasis. Pleura: No significant effusions or pneumothorax. Mediastinum/nicole: No pathologic lymphadenopathy. Pulmonary arteries/Aorta: No filling defect identified. Note that the subsegmental pulmonary arteries are not well assessed due to motion and poor contrast opacification. No aortic aneurysm. Heart: No significant pericardial effusion. Normal heart size. Upper abdomen: See subsequent abdominal pelvis CT. Bones: No acute abnormality. IMPRESSION: No clinically significant pulmonary embolus identified. Mild dependent airspace disease likely reflecting atelectasis.
--- NOTE | 2023-01-24 00:02 | ER ---
Nurse's Notes [facility] Name: Blake iNxon Age: 73 yrs Sex: Male : 1950 Arrival Date: 01/23/2023 Time: 20:04 Bed 19 Private MD: Diagnosis: Severe sepsis without septic shock;Acute and subacute hepatic failure;Acute respiratory failure with hypoxia;Thrombocytopenia, unspecified Presentation: 01/23 20:12 Chief complaint: Patient states: [facility] stated caregiver C/O patient having pf1 fatigue for 2 weeks with difficulty breathing, worse today. EMS stated 02 saturation with 90% on RA [employer], applied 02 2LNC improved to 92%. Noted patient has feces with urination to undergarment. Patient has left sided deficient from previous stroke. 20:12 Coronavirus screen: Vaccine status: Patient reports being unvaccinated. Client denies pf1 travel out of the [place] in the last 14 days. Client presents with at least one sign or symptom that may indicate coronavirus-19. Ebola Screen: Patient negative for fever greater than or equal to 101.5 degrees Fahrenheit, and additional compatible Ebola Virus Disease symptoms. Initial Sepsis Screen: Does the patient meet any 2 criteria? RR > 20 per min. HR > 90 bpm. Yes Does the patient have a suspected source of infection? No. Patient's initial sepsis screen is negative. Initial Sepsis Screen: Does the patient have a suspected source of infection? Yes: Other: SOB. Risk Assessment: Do you want to hurt yourself or someone else? Patient reports no desire to harm self or others. 20:12 Method Of Arrival: EMS: [facility] pf1 20:12 Acuity: GISSEL 2 pf1 Historical: - Allergies: 20:35 No Known Allergies; pf1 - PMHx: 20:35 CVA; Hyperlipidemia; Hypertension; pf1 - PSHx: 20:35 Cholecystectomy; knee; Shoulder; pf1 - Immunization history:: Adult Immunizations not up to date, Client reports having NOT received the Covid vaccine. Last tetanus immunization: < 10 years ago Flu vaccine is not up to date. - Social history:: Smoking status: Patient denies any tobacco usage or history of. Patient uses alcohol, patient/guardian reports chronic longstanding heavy alcohol consumption. Patient/guardian denies using street drugs. Screenin:11 [facility] ED Fall Risk Assessment (Adult) History of falling in the last 3 months, lg3 including since admission No falls in past 3 months (0 pts). Abuse screen: Denies threats or abuse. Denies injuries from another. Nutritional screening: No deficits noted. Tuberculosis screening: No symptoms or risk factors identified. Assessment: 20:55 General: patient cleaned of urine and feces. pf1 21:11 General: Appears comfortable, unkempt, Behavior is calm, cooperative, Smells of urine lg3 and feces. Pain: Denies pain. Neuro: No deficits noted. Garcia Agitation-Sedation Scale (RASS): 0 - Alert and Calm Level of Consciousness is awake, alert, obeys commands, Oriented to person, place, time, situation. Cardiovascular: No deficits noted. Denies chest pain, Rhythm is sinus tachycardia. Respiratory: Reports shortness of breath at rest Airway is patent Respiratory effort is shallow, Respiratory pattern is tachypnea. GI: No deficits noted. No signs and/or symptoms were reported involving the gastrointestinal system. Abdomen is flat, non-distended. : No signs and/or symptoms were reported regarding the genitourinary system. EENT: No deficits noted. No signs and/or symptoms were reported regarding the EENT system. Derm: No signs and/or symptoms reported regarding the dermatologic system. Skin is intact, is healthy with good turgor, Skin is dry, Skin is normal, Skin temperature is warm. Musculoskeletal: left sided deficits noted from previous CVA. 23:32 Reassessment: No changes from previously documented assessment. Patient and/or family lg3 updated on plan of care and expected duration. Pain level reassessed. Patient is alert, oriented x 3, equal unlabored respirations, skin warm/dry/pink. 01/24 01:12 Reassessment: Patient appears in no apparent distress at this time. No changes from lg3 previously documented assessment. Patient and/or family updated on plan of care and expected duration. Pain level reassessed. Patient is alert, oriented x 3, equal unlabored respirations, skin warm/dry/pink. Patient states symptoms have improved. 03:55 Reassessment: Patient appears in no apparent distress at this time. No changes from lg3 previously documented assessment. Patient and/or family updated on plan of care and expected duration. Pain level reassessed. Patient is alert, oriented x 3, equal unlabored respirations, skin warm/dry/pink. Patient states feeling better. Patient states symptoms have improved. Vital Signs: 01/23 20:12 BP 113 / 87; Pulse 123; Resp 35; Temp 98.7; Pulse Ox 84% on R/A; Weight 109.32 kg; pf1 Height 6 ft. 4 in. ; Pain 0/10; 21:11 BP 106 / 77; Pulse 125; Resp 37; Pulse Ox 94% 4 lpm ; lg3 21:15 Pulse Ox 91% on BiPAP; lg3 22:13 BP 104 / 78; Pulse 118; Resp 28; Pulse Ox 91% on BiPAP; lg3 23:31 BP 101 / 67; Pulse 136; Resp 29; Pulse Ox 93% on BiPAP; lg3 01/24 01:00 BP 107 / 71; Pulse 128; Resp 30; Pulse Ox 90% on BiPAP; lg3 02:15 BP 104 / 69; Pulse 127; Resp 31; Pulse Ox 93% on BiPAP; lg3 03:55 BP 110 / 78; Pulse 122; Resp 33; Pulse Ox 91% on BiPAP; lg3 01/23 20:12 Body Mass Index 29.34 (109.32 kg, 193.04 cm) pf1 01/23 20:12 Pain Scale: Adult pf1 ED Course: 01/23 20:10 Patient arrived in ED. pf1 20:13 Nacho Cisse MD is Attending Physician. rt 20:35 Triage completed. pf1 20:36 Inserted saline lock: 20 gauge in right antecubital area, using aseptic technique. rv1 Blood collected. 20:36 Troponin High Sensitivity Sent. rv1 20:36 BNP Sent. rv1 20:36 CPK Sent. rv1 20:36 Magnesium Sent. rv1 20:36 CBC with Diff Sent. rv1 20:36 CMP Sent. rv1 20:36 Lactate w/ 2H reflex if indic. Sent. rv1 20:37 Protime (+inr) Sent. rv1 20:37 Ptt, Activated Sent. rv1 20:43 Chest Single View XRAY In Process Unspecified. EDMS 20:53 Rosie Islas, RN is Primary Nurse. lg3 21:11 Oxygen administration via nasal cannula \T\ 4L/min. lg3 21:11 Patient has correct armband on for positive identification. Placed in gown. Bed in low lg3 position. Call light in reach. Side rails up X2. Client placed on continuous cardiac and pulse oximetry monitoring. NIBP monitoring applied. electronic development technician on. Door closed. Noise minimized. Warm blanket given. 21:15 Blood Culture Adult (2) Sent. rv1 21:15 CBC with Diff Sent. rv1 21:15 Urinalysis w/ reflexes Sent. rv1 21:15 O2 via pt placed on BiPAP. lg3 22:49 Chest For PE Angio CT In Process Unspecified. EDMS 22:50 CT Abd/Pelvis - IV Contrast Only In Process Unspecified. EDMS 23:06 BIPAP Sent. lg3 01/24 00:21 SARS RAPID Sent. rv1 03:58 No provider procedures requiring assistance completed. Patient transferred, IV remains lg3 in place. intact, No redness/swelling at site. 03:58 Arm band placed on right wrist. lg3 Administered Medications: 01/23 21:25 Drug: Cefepime IVPB 2 grams Route: IVPB; Rate: 200 ml/hr; Infused Over: 30 mins; Site: pf1 right antecubital; 22:05 Follow up: Response: No adverse reaction; IV Status: Completed infusion; IV Intake: lg3 100ml 21:25 Drug: NS 0.9% IV 1000 ml Route: IV; Rate: 1 bolus; Site: right antecubital; pf1 22:32 Follow up: Response: No adverse reaction; IV Status: Completed infusion; IV Intake: lg3 1000ml 22:11 Drug: vancoMYCIN IVPB 1 grams Route: IVPB; Infused Over: 2 hrs; Site: right antecubital;lg3 01/24 04:00 Follow up: IV Status: Completed infusion; IV Intake: 250ml lg3 Medication: 03:59 VIS not applicable for this client. lg3 Intake: 01/23 22:05 IV: 100ml; Total: 100ml. lg3 22:32 IV: 1000ml; Total: 1100ml. lg3 01/24 04:00 IV: 250ml; Total: 1350ml. lg3 Outcome: 00:02 ER care complete, transfer ordered by . rt 03:58 Transferred by ground EMS to [facility], Transfer form completed. lg3 03:58 Condition: stable 03:58 Instructed on the need for transfer, Demonstrated understanding of instructions. 03:59 Patient left the ED. lg3 Signatures: Dispatcher [employer] EDRosie Rhoades RN RN lg3 Nacho Cisse MD MD rt Adele Horn RN RN pf1 Tarah Grossman rv1 Corrections: (The following items were deleted from the chart) 01/23 23:30 21:11 General: Appears in no apparent distress. comfortable, Behavior is calm, lg3 cooperative, Smells of urine and feces. lg3 23:30 21:11 Respiratory: Reports shortness of breath at rest Airway is patent Respiratory lg3 effort is even, unlabored, Respiratory pattern is tachypnea lg3
--- NOTE | 2023-01-24 00:03 | EDPHYS ---
Physician Documentation [facility] Name: Blake Nixon Age: 73 yrs Sex: Male : 1950 Arrival Date: 01/23/2023 Time: 20:04 Bed 19 Private MD: ED Physician Nacho Cisse HPI: 01/23 20:27 This 73 yrs old Male presents to ER via Unassigned with complaints of Shortness Of rt Breath. 20:27 Patient presents to the ED with progressively worsening generalized weakness for rt reportedly the past 6 days. Patient has been lying in his bed, unable to get up due to the weakness. Denies other specific complaints. EMS does report that the patient was in a filthy environment, that the caregiver did not know that he was lying in his own urine and feces. Symptoms are moderate in severity, no other aggravating or alleviating factors.. Historical: - Allergies: 20:35 No Known Allergies; pf1 - PMHx: 20:35 CVA; Hyperlipidemia; Hypertension; pf1 - PSHx: 20:35 Cholecystectomy; knee; Shoulder; pf1 - Immunization history:: Adult Immunizations not up to date, Client reports having NOT received the Covid vaccine. Last tetanus immunization: < 10 years ago Flu vaccine is not up to date. - Social history:: Smoking status: Patient denies any tobacco usage or history of. Patient uses alcohol, patient/guardian reports chronic longstanding heavy alcohol consumption. Patient/guardian denies using street drugs. ROS: 20:27 Constitutional: Negative for fever, chills, and weight loss, Cardiovascular: Negative rt for chest pain, palpitations, and edema, Respiratory: Negative for shortness of breath, cough, wheezing, and pleuritic chest pain, Abdomen/GI: Negative for abdominal pain, nausea, vomiting, diarrhea, and constipation, MS/Extremity: Negative for injury and deformity, Skin: Negative for injury, rash, and discoloration, Psych: Negative for depression, anxiety, suicide ideation, homicidal ideation, and hallucinations. 20:27 Neuro: Positive for weakness, Negative for altered mental status. Exam: 20:27 Head/Face: Normocephalic, atraumatic. Chest/axilla: Normal chest wall appearance and rt motion. Nontender with no deformity. No lesions are appreciated. Cardiovascular: Regular rate and rhythm with a normal S1 and S2. No gallops, murmurs, or rubs. Normal PMI, no JVD. No pulse deficits. Respiratory: Lungs have equal breath sounds bilaterally, clear to auscultation and percussion. No rales, rhonchi or wheezes noted. No increased work of breathing, no retractions or nasal flaring. Abdomen/GI: Soft, non-tender, with normal bowel sounds. No distension or tympany. No guarding or rebound. No evidence of tenderness throughout. Skin: Warm, dry with normal turgor. Normal color with no rashes, no lesions, and no evidence of cellulitis. MS/ Extremity: Pulses equal, no cyanosis. Neurovascular intact. Full, normal range of motion. Neuro: Awake and alert, GCS 15, oriented to person, place, time, and situation. Cranial nerves II-XII grossly intact. Motor strength 5/5 in all extremities. Sensory grossly intact. Cerebellar exam normal. Normal gait. Psych: Awake, alert, with orientation to person, place and time. Behavior, mood, and affect are within normal limits. 20:27 Constitutional: The patient appears smells of urine, unkempt. 21:07 ECG was reviewed by the Attending Physician. rt Vital Signs: 20:12 BP 113 / 87; Pulse 123; Resp 35; Temp 98.7; Pulse Ox 84% on R/A; Weight 109.32 kg; pf1 Height 6 ft. 4 in. ; Pain 0/10; 21:11 BP 106 / 77; Pulse 125; Resp 37; Pulse Ox 94% 4 lpm ; lg3 21:15 Pulse Ox 91% on BiPAP; lg3 22:13 BP 104 / 78; Pulse 118; Resp 28; Pulse Ox 91% on BiPAP; lg3 23:31 BP 101 / 67; Pulse 136; Resp 29; Pulse Ox 93% on BiPAP; lg3 01/24 01:00 BP 107 / 71; Pulse 128; Resp 30; Pulse Ox 90% on BiPAP; lg3 02:15 BP 104 / 69; Pulse 127; Resp 31; Pulse Ox 93% on BiPAP; lg3 03:55 BP 110 / 78; Pulse 122; Resp 33; Pulse Ox 91% on BiPAP; lg3 01/23 20:12 Body Mass Index 29.34 (109.32 kg, 193.04 cm) pf1 01/23 20:12 Pain Scale: Adult pf1 MDM: 01/23 20:13 Patient medically screened. rt 01/24 02:27 Differential diagnosis: Sepsis, pneumonia, UTI, electrolyte disturbance. Data reviewed: rt vital signs, nurses notes, old medical records. Consideration of Admission/Observation After discussion with hospitalist, patient would benefit from transfer for higher level of care. Management of patient was discussed with the following:. I considered the following discharge prescriptions or medication management in the emergency department Medications were administered in the Emergency Department. See MAR. Independent interpretation of the following test(s) in the Emergency Department X-Ray: My interpretation is No pneumothorax seen on my interpretation of the x-ray images. Care significantly affected by the following chronic conditions: Hypertension. Counseling: I had a detailed discussion with the patient and/or guardian regarding: the historical points, exam findings, and any diagnostic results supporting the discharge/admit diagnosis, lab results, radiology results, the need to transfer to another facility. Response to treatment: the patient's symptoms have markedly improved after treatment. 01/23 20:15 Order name: Blood Culture Adult (2) rt 01/23 20:15 Order name: CBC with Diff; Complete Time: 21:35 rt 01/23 20:15 Order name: CMP; Complete Time: 21:15 rt 01/23 20:15 Order name: Lactate w/ 2H reflex if indic.; Complete Time: 21:15 rt 01/23 20:15 Order name: Protime (+inr); Complete Time: 21:15 rt 01/23 20:15 Order name: Ptt, Activated; Complete Time: 21:15 rt 01/23 20:15 Order name: Magnesium; Complete Time: 21:15 rt 01/23 20:15 Order name: CPK; Complete Time: 21:15 rt 01/23 20:15 Order name: BNP; Complete Time: 21:15 rt 01/23 20:15 Order name: Troponin High Sensitivity; Complete Time: 21:15 rt 01/23 21:16 Order name: ABG; Complete Time: 21:38 rt 01/23 21:31 Order name: CBC Smear Scan; Complete Time: 21:35 EDMS 01/23 21:36 Order name: Glucose, Ancillary Testing; Complete Time: 21:38 EDMS 01/23 23:36 Order name: SARS RAPID ds4 01/24 00:17 Order name: Lactate Sepsis 2 HR Follow-up EDMS 01/23 20:15 Order name: Chest Single View XRAY; Complete Time: 21:19 rt 01/23 21:16 Order name: BIPAP rt 01/23 21:41 Order name: Chest For PE Angio CT; Complete Time: 23:04 la1 01/23 21:42 Order name: CT Abd/Pelvis - IV Contrast Only; Complete Time: 23:01 la1 01/23 20:15 Order name: EKG; Complete Time: 20:16 rt 01/23 20:15 Order name: Accucheck; Complete Time: 21:22 rt 01/23 20:15 Order name: Cardiac monitoring; Complete Time: 20:39 rt 01/23 20:15 Order name: EKG - Nurse/Tech; Complete Time: 21:15 rt 01/23 20:15 Order name: IV Saline Lock - Large Bore; Complete Time: 20:36 rt 01/23 20:15 Order name: Labs collected and sent; Complete Time: 20:36 rt 01/23 20:15 Order name: O2 Per Protocol; Complete Time: 20:36 rt 01/23 20:15 Order name: O2 Sat Monitoring; Complete Time: 20:36 rt 01/23 20:15 Order name: Vital Signs; Complete Time: 21:15 rt EC/28 21:07 Rate is 124 beats/min. Rhythm is regular, Sinus tachycardia with No ectopy. QRS [place] is rt Normal. MA interval is normal. QRS interval is normal. QT interval is normal. No Q waves. T waves are Normal. No ST changes noted. Interpreted by me. Administered Medications: 21:25 Drug: Cefepime IVPB 2 grams Route: IVPB; Rate: 200 ml/hr; Infused Over: 30 mins; Site: pf1 right antecubital; 22:05 Follow up: Response: No adverse reaction; IV Status: Completed infusion; IV Intake: lg3 100ml 21:25 Drug: NS 0.9% IV 1000 ml Route: IV; Rate: 1 bolus; Site: right antecubital; pf1 22:32 Follow up: Response: No adverse reaction; IV Status: Completed infusion; IV Intake: lg3 1000ml 22:11 Drug: vancoMYCIN IVPB 1 grams Route: IVPB; Infused Over: 2 hrs; Site: right antecubital;3 01/24 04:00 Follow up: IV Status: Completed infusion; IV Intake: 250ml lg3 Disposition Summary: 01/24/23 00:02 Transfer Ordered Transfer Location: [facility] rt Reason: Higher level of care rt Condition: Fair rt Problem: new rt Symptoms: have improved rt Accepting Physician: (01/24/23 03:59) lg3 Diagnosis - Severe sepsis without septic shock rt - Acute and subacute hepatic failure rt - Acute respiratory failure with hypoxia rt - Thrombocytopenia, unspecified rt Forms: - Medication Reconciliation Form rt - SBAR form rt Signatures: Dispatcher [employer] EDMS Delio Hook, FURNACE CARETAKER-C FURNACE CARETAKER-Cla1 Rosie Islas RN RN lg3 Nacho Cisse MD MD rt Adele Horn, BRANDI RN pf1 Corrections: (The following items were deleted from the chart) 03:59 00:02 rt lg3
[2023-01-24 00:43] LABS: SARS-CoV-2 Antigen Rapid Res Negative (Negative)
[2023-01-24 04:04] VITALS: TEMP 98.7
[2023-01-24 04:17] VITALS: BP 110/78; O2SAT 91
--- NOTE | 2023-01-26 07:13 | EKG ---
Test Date: 2023-01-23 Test Time: 20:55:14 Lodging House Keeper: RV MEASUREMENT RESULTS: Intervals: Rate: 124 [place]: 156 QRSD: 76 QT: 284 QTc: 408 [place]: P: 30 [place]: 156 QRS: -18 T: 64 INTERPRETIVE STATEMENTS: Sinus tachycardia Otherwise normal ECG Compared to ECG 06/09/2022 05:34:41 Sinus rhythm no longer present ST (T wave) deviation no longer present Electronically Signed On 01-26-23 07:07:25 CDT by Terell Harley
== END 2023-01-24 03:59 | disposition short-term general hospital (02) ==
LOC: ER 20:04
DX: J96.01 Acute respiratory failure with hypoxia (principal); A41.9 Sepsis, unspecified organism; R65.20 Severe sepsis without septic shock; K72.00 Acute and subacute hepatic failure without coma; D69.6 Thrombocytopenia, unspecified; I10 Essential (primary) hypertension; Z86.73 Personal history of transient ischemic attack (TIA), and cerebral infarction without residual deficits; Z20.822 Contact with and (suspected) exposure to COVID-19
CPT/HCPCS: 96365; 96367; 93005; 87040; 85025; 36415; 83735; 82550; 85610; 82947; 83605 ×2; 85730; 84484; 80053; 83880; 71275; 74177; 71045; 82805; 99285; 96366; 87811; 94660; Q9967; J0692; J7050; J7030

== ENCOUNTER 2023-05-11 08:29 | Emergency (ER) | payer OTHER ==
--- OUTSIDE RECORDS SUMMARY | 2023-05-11 08:34 | XMS REPORT | Continuity of Care Document ---
:1950 Author Organization [facility] t Address [address] [place] [address] [address] [place] [address] Care Team Providers Name Role Phone Clarisa Attending Clinician Unavailable Jeremiah Chamberlain Attending Clinician Unavailable Dipti Attending Clinician Unavailable Lydia Calle MD Attending Clinician Jermaine Houston MD Attending Clinician Franklin De Santiago MD Attending Clinician Roxie Alvarez MD Attending Clinician FRANKLIN DE SANTIAGO Attending Clinician Unavailable Clarisa Admitting Clinician Unavailable Jeremiah Chamberlain Admitting Clinician Unavailable Dipti Admitting Clinician Unavailable ROXIE ALVAREZ Admitting Clinician Unavailable LYDIA CALLE Admitting Clinician Unavailable Payers Payer Name Policy Type Policy Number Effective Date Expiration Date S ource MEDICARE [place]: [id number] 2016 [place] 00:00:00 Problems Condition Condition Condition Status Onset Resolution Last Treating Co mments Source Name Details Category Date Date Treatment Clinician Date Sepsis Sepsis Disease [facility] 00:00: Medical 00 Center Acute Acute Disease Recurre [facility] respirator [facility]ce 5-29 Yesica kes y failure y failure 00:00: [facility] with with 00 Center hypoxia hypoxia Allergies, Adverse Reactions, Alerts Allergy Allergy Status Severity Reaction(s) Onset Inactive Treating Comm ents Source Name Type Date Date Clinician No Known DA Active [facility] [place] [facility] No Known DA Active [facility] Allergie 706 [place] s 00:00: [place] 00 [facility] No Known DA Active U [facility] Contrast 1 [place] [facility] 00:[facility]: [facility]ope [facility] 00 dic [facility] No Known DA Active U [facility] Drug 08-31 [place] [facility] 00:[facility]: [facility] 00 [facility] No Known DA Active U [facility] Food 1 [place] [facility] 00:[facility]: [facility] 00 dic [facility] No Known DA Active U 2006-0 [facility] Other 08-31 [place] [facility] 00:[facility] 00 dic [facility] NO KNOWN Allergy Active [facility] Social History Social Habit Start Date Stop Date Quantity Comments Source History [facility]-Med Medical [facility] Tobacco use and 2023-01-24 2023-01-[address] [facility] exposure [facility]00 00:00:00 non-user Medical Center History [facility] 2023-01-24 2023-01-[address] [facility] Housing Unable to 00:00:00 00:00:00 Medical Center Pay History [facility] 2023-01-24 2023-01-[address] [facility] Housing Places 00:00:00 00:00:00 Medical Ce nter Lived History [facility] 2023-01-24 2023-01-[address] [facility] Housing Homeless 00:00:00 00:00:00 Medical Center Last Year Alcohol intake 2023-01-24 2023-01-[address] [facility] 00:00:00 00:00:00 non-drinker Medical Cente r (finding) History [facility] 2023-01-24 2023-01-[address] [facility] Transport Med 00:00:00 00:00:[address] Sex Assigned At [address] [address] Yesica valverde 00:00:00 00:00:00 Medical Center Smoking Status Start Date Stop Date Source Never smoked tobacco [facility] Medications Ordered Filled Start Stop Current Ordering Indication Dosage Frequency Signature Comments Components Source Medication Medication Date Date Medication? Clinician (SIG) Name Name apixaban 2022- No 5mg Q.5D Take [address] [facility] [address] (ELIQUIS) 5 -11 02-03 tablet (5 Yesica kes mg Tab 00:00: 23:59 mg total) Medic al tablet 00 :00 by mouth Center in the morning and 1 tablet (5 mg total) before bedtime. Do all this for 30 days. apixaban 2022- No 5mg Q.5D Take [address] (ELIQUIS) 5 -11 02- tablet (5 Yesica kes mg Tab 00:00: 23:59 mg total) Medic al tablet 00 :00 by mouth Center in the morning and 1 tablet (5 mg total) before bedtime. Do all this for 30 days. zinc oxide 2022- No 1{appli Q.5D Apply [address] [facility] 16 % Oint -11 01-13 cation} [facility] 00:00: 23:59 n Medical 00 :00 topically Center in the morning and 1 applicatio n before bedtime. Do all this for 10 days. zinc oxide 2022- No 1{appli Q.5D Apply [address] [facility] 16 % Oint -11 01-13 cation} [facility] 00:00: 23:59 n Medical 00 :00 topically Center in the morning and 1 applicatio n before bedtime. Do all this for 10 days. senna-docus 2022- No 1{tbl} Take [address] ate 01-29 06-08 tablet by Noel (SENOKOT S) 00:00: 23:59 mouth Medi trudy 8.6-50 mg 00 :00 every Center per tablet night as needed for Constipati on for up to 5 days. amoxicillin 2022- No 1{tbl} Q.5D Take [address] -clavulanat - 06-08 tablet by Yesica escamilla 00:00: 23:59 mouth in Medical (AUGMENTIN) 00 :00 the Center 875-125 mg morning per tablet and 1 tablet before bedtime. Do all this for 5 days. senna-docus 2022- No 1{tbl} Take [address] ate -11 01-08 tablet by Noel (SENOKOT S) 00:00: 23:59 mouth Medi trudy 8.6-50 mg 00 :00 every Center per tablet night as needed for Constipati on for up to 5 days. amoxicillin 2022- No 1{tbl} Q.5D Take [address] -clavulanat -11 01-08 tablet by Yesica valverde e 00:00: 23:59 mouth in Medical (AUGMENTIN) 00 :00 the Center 875-125 mg morning per tablet and 1 tablet before bedtime. Do all this for 5 days. Vital Signs Vital Name Observation Time Observation Value Comments Source WEIGHT 2023-01-26 05:00:00 113.218 kg HEIGHT 2023-01-24 05:45:00 185.4 cm WEIGHT 2023-01-26 05:00:00 113.218 kg HEIGHT 2023-01-24 05:45:00 185.4 cm WEIGHT 2023-01-26 05:00:00 113.218 kg HEIGHT 2023-01-24 05:45:00 185.4 cm Heart rate 2023-01-29 08:50:00 89 /min [facility] Respiratory rate 2023-01-29 08:50:00 20 /min [place] [facility] Oxygen saturation in 2023-01-29 08:50:00 97 /min [facility] Arterial blood by Medical nter Pulse oximetry Body temperature 2023-01-29 07:36:07 36.33 Ansley [place] [facility] Systolic blood 2023-01-29 07:35:50 114 mm[Hg] [facility] pressure [facility] Diastolic blood 2023-01-29 07:35:50 75 mm[Hg] [facility] Body weight 2023-01-26 05:00:00 113.218 kg [facility] BMI 2023-01-26 05:00:00 32.93 kg/m2 [facility] Body height 2023-01-24 05:45:00 185.4 cm [facility] Procedures Procedure Date / Time Performing Clinician Source Performed CBC W/PLT COUNT & AUTO 2023-01-29 05:28:00 Amelia Albanazeb [facility] COMPREHENSIVE METABOLIC 2023-01-29 05:28:00 [facility] CBC W/PLT COUNT & AUTO 2023-01-29 05:28:00 Franklin De Santiago [facility] POCT-GLUCOSE METER 2023-01-29 05:27:00 [facility] PO[facility]SE METER 2023-01-28 20:33:00 [facility] POCT-GLUCOSE METER 2023-01-28 16:12:00 [facility] POCT-[facility]UCOSE METER 2023-01-28 12:06:00 [facility] CBC W/PLT COUNT & AUTO 2023-01-28 05:07:00 Franklin De Santiago [facility] COMPREHENSIVE METABOLIC 2023-01-28 05:07:00 [facility] CBC W/PLT COUNT & AUTO 2023-01-28 05:07:00 Franklin De Santiago [facility] POCT-GLUCOSE METER 2023-01-27 21:12:00 Amelia Albanazeb [facility] POCT-GLUCOSE METER 2023-01-27 16:48:00 [facility] AMMONIA 2023-01-27 16:01:00 Amelia [facility] HEREDITARY HEMOCHROMATOSIS 2023-01-27 16:01:00 Franklin De Santiago [facility] XR CHEST 1 VIEW PORTABLE / 2023-01-27 13:38:00 Franklin De Santiago [facility] POCT-GLUCOSE METER 2023-01-27 12:47:00 Marianojefferson [facility] POCT-GLUCOSE METER 2023-01-27 05:41:00 Marianojefferson [facility] BASIC METABOLIC PANEL 2023-01-27 05:35:00 Sherry Pimentel [facility] CBC W/PLT COUNT & AUTO 2023-01-27 05:35:00 Sherry Pimentel [facility] HEPATIC FUNCTION PANEL 2023-01-27 05:35:00 Marianojefferson [facility] CBC W/PLT COUNT & AUTO 2023-01-27 05:35:00 Sherry Pimentel [facility] COVID ANTIGEN 2023-01-26 22:10:[address] [facility] 2023-01-26 18:42:00 Leny Warner [facility] POCT-GLUCOSE METER 2023-01-26 16:33:00 [facility] POCT-GLUCOSE METER 2023-01-26 12:28:00 [facility] MR ABDOMEN WITHOUT IV 2023-01-26 09:27:00 Segundoinjefferson [facility] POCT-GLUCOSE METER 2023-01-26 06:26:00 Segundolacie [facility] BASIC METABOLIC PANEL 2023-01-26 04:30:00 Sherry Pimentel [facility] CBC W/PLT COUNT & AUTO 2023-01-26 04:30:00 Sherry Pimentel [facility] HEPATIC FUNCTION PANEL 2023-01-26 04:30:00 Amelia [facility] CBC W/PLT COUNT & AUTO 2023-01-26 04:30:00 Sherry Pimentel [facility] POCT-GLUCOSE METER 2023-01-26 01:29:00 Amelia [facility] POCT-GLUCOSE METER 2023-01-25 21:37:00 Mariano [facility] POCT-GLUCOSE METER 2023-01-25 18:25:00 Mariano [facility] ACTIN (SMOOTH MUSCLE) 2023-01-25 18:22:00 [facility] ANTIBODY, IGG Medical Center HC LAB FLUORESC AB SCRN EA 2023-01-25 18:22:00 [facility] AB [facility] IRON, TIBC, % SAT. 2023-01-25 18:22:00 [facility] (WITHOUT FERRITIN) [facility] 2023-01-25 18:22:00 [facility] [id number]\, 2023-01-25 18:22:00 [facility] SERUM [facility] CERULOPLASMIN 2023-01-25 18:22:00 [facility] ANTI-NUCLEAR ANTIBODY 2023-01-25 18:22:00 [facility] (NATACHA) [facility] MITOCHONDRIAL AB SCREEN 2023-01-25 18:22:00 [facility] MITOCHONDRIAL AB TITER 2023-01-25 18:22:00 [facility] VENOUS DOPPLER ARMS 2023-01-25 18:10:00 Bessie Cleary [facility] 2D ECHO W/ DOPPLER 2023-01-25 16:20:00 [facility] PROCALCITONIN 2023-01-25 14:03:00 Roxie Alvarez [place] [facility] POCT-GLUCOSE METER 2023-01-25 12:35:00 [facility] XR CHEST 1 VIEW PORTABLE / 2023-01-25 10:44:00 Nilda Jimenes [facility] TSH/FREE T4 IF INDICATED 2023-01-25 10:42:00 Bessie Cleary [facility] VENOUS DOPPLER LEGS 2023-01-25 05:53:00 [facility] BIL[facility] BASIC METABOLIC PANEL 2023-01-25 03:11:00 Sherry Pimentel [facility] CBC W/PLT COUNT & AUTO 2023-01-25 03:11:00 Sherry Pimentel [facility] HEPATIC FUNCTION PANEL 2023-01-25 03:11:00 [facility] PERIPHERAL BLOOD SMEAR - 2023-01-25 03:11:00 Sherry Pimentel [facility] CBC W/PLT COUNT & AUTO 2023-01-25 03:11:00 Sherry Pimentel [facility] (MANUAL DIFFERENTIAL) 2023-01-25 03:11:00 Sherry Pimentel [facility] LACTIC ACID, VENOUS 2023-01-24 23:39:[address] [facility] LACTIC ACID, VENOUS 2023-01-24 20:26:[address] [facility] POCT-GLUCOSE METER 2023-01-24 18:00:00 Georgette [facility] US ABDOMEN LIMITED 2023-01-24 17:21:00 Monie [facility] LACTIC ACID, VENOUS 2023-01-24 15:27:[address] [facility] BLOOD GAS, VENOUS 2023-01-24 15:27:00 [facility] POCT-GLUCOSE METER 2023-01-24 13:08:00 [facility], VENOUS 2023-01-24 12:01:[address] [facility] TROPONIN I 2023-01-24 12:01:00 Lomax, Misaki [facility] XR CHEST 1 VIEW PORTABLE / 2023-01-24 11:15:00 Sherry Pimentel [facility] LACTIC ACID, VENOUS 2023-01-24 10:13:00 AlvarezAbrahanbu [facility] AMMONIA 2023-01-24 08:15:00 [facility] TROPONIN I 2023-01-24 08:15:00 Monie [facility] SALICYLATE LEVEL 2023-01-24 07:59:00 Georgette [facility] POCT-GLUCOSE METER 2023-01-24 07:51:00 Georgette [facility] RAPID DRUG SCREEN, URINE 2023-01-24 06:59:00 Georgette [facility] URINALYSIS W/ REFLEX URINE 2023-01-24 06:59:00 Lima Lomax [facility] ACETAMINOPHEN LEVEL 2023-01-24 06:58:00 Georgette [facility] BLOOD CULTURE 2023-01-24 06:46:00 Sherry Pimentel [facility] BLOOD CULTURE 2023-01-24 06:29:00 Sherry Pimentel [facility] CBC W/PLT COUNT & AUTO 2023-01-24 06:27:00 Sherry Pimentel [facility] LACTIC ACID, VENOUS 2023-01-24 06:27:00 Sherry Pimentel [facility] PROTHROMBIN TIME/INR 2023-01-24 06:27:00 Sherry Pimentel [facility] HEMOGLOBIN A1C 2023-01-24 06:27:00 Sherry Pimentel [facility] B-TYPE NATRIURETIC FACTOR 2023-01-24 06:27:00 Sherry Pimentel [facility] (BNP) [facility] D-DIMER 2023-01-24 06:27:00 Sherry Pimentel [facility] HEPATIC FUNCTION PANEL 2023-01-24 06:27:00 Georgette [facility] BASIC METABOLIC PANEL 2023-01-24 06:27:00 Georgette [facility] HEPATITIS PANEL, ACUTE 2023-01-24 06:27:00 Calle, [facility] LIPID PANEL 2023-01-24 06:27:00 Oxana Lomaxcallie [facility] CBC W/PLT COUNT & AUTO 2023-01-24 06:27:00 Sehrry Pimentel [facility] ECG 12-LEAD 2023-01-24 06:10:52 Sherry Pimentel [facility] ECG 12-LEAD 2023-01-24 06:10:52 Unknown, Hl7 [facility] ECG 12-LEAD 2023-01-24 06:10:52 Unknown, Hl7 [facility] BLOOD GAS, ARTERIAL 2023-01-24 06:05:00 Georgette [facility] POCT-GLUCOSE METER 2023-01-24 05:47:00 [facility] EKG-SCANNED 2023-01-24 00:00:00 ProviderElisha [facility] Plan of Care Planned Activity Planned Date Details Comments Source Future Scheduled 2024-01-[address] [facility] 00:00:00 [facility] Medical Cente r Screening (12+) [code = Tobacco Cessation Counseling and Screening (12+)] Future Scheduled 2024-01-[address] [facility] 00:00:00 [facility] Medical Cente r Screening (12+) [code = Tobacco Cessation Counseling and Screening (12+)] Future Scheduled 2023-04-29 Influenza Vaccine (#1) [facility] 00:00[facility]00 [code = Influenza Medical Ce nter Vaccine (#1)] Future Scheduled 2023-04-29 Influenza Vaccine (#1) [facility] 00:00:00 [code = Influenza Medical Ce nter Vaccine (#1)] Future Scheduled 2022-08-[address] [facility] 00:00:00 (12+) [code = Medical Center DEPRESSION SCREENING (12+)] Future Scheduled 2022-08-29 FALLS RISK SCREENING [facility] Test 00:00:00 [code = FALLS RISK Medical C enter SCREENING] Future Scheduled 2022-08-[address] [facility] Test 00:00:00 (12+) [code = Medical Center DEPRESSION SCREENING (12+)] Future Scheduled 2022-08-29 FALLS RISK SCREENING [facility] 00:00:00 [code = FALLS RISK Medical C enter SCREENING] Future Scheduled 2017-02-[address] [facility] 00:00:00 WELLNESS (YEAR 2 or Medical Center FIRST YEAR if no IPPE) [code = MEDICARE ANNUAL WELLNESS (YEAR 2 or FIRST YEAR if no IPPE)] Future Scheduled 2017-02-[address] [facility] 00:00:00 WELLNESS (YEAR 2 or Medical Center FIRST YEAR if no IPPE) [code = MEDICARE ANNUAL WELLNESS (YEAR 2 or FIRST YEAR if no IPPE)] Future Scheduled 2016-01-12 PNEUMOCOCCAL 65+ YRS ([address] [facility] Test 00:00:00 - PCV) [code = Medical Cente r PNEUMOCOCCAL 65+ YRS (1 - PCV)] Future Scheduled 2016-01-12 PNEUMOCOCCAL 65+ YRS ([address] [facility] Test 00:00:00 - PCV) [code = Medical Cente r PNEUMOCOCCAL 65+ YRS (1 - PCV)] Future Scheduled 2001 SHINGLES VACCINES ([address] [facility] Test 00:00:00 2) [code = [facility] VACCINES (1 of 2)] Future Scheduled 2001 SHINGLES VACCINES ([address] [facility] 00:00:00 2) [facility] Future Scheduled 1970 DTAP/TDAP/TD [facility]ACCINES [facility] 00:00:00 (1 - Tdap) [code = Medical C enter DTAP/TDAP/TD VACCINES (1 - Tdap)] Future Scheduled 1970 DTAP/TDAP/TD VACCINES [facility] 00:00:00 (1 - Tdap) [code = Medical C enter DTAP/TDAP/TD VACCINES (1 - Tdap)] Future Scheduled 1950 COVID-19 VACCINE (#1) [facility] 00:00:00 [code = COVID-[address] VACCINE (#1)] Future Scheduled 1950 COVID-19 VACCINE (#1) [facility] 00:00:00 [code = COVID-[address] VACCINE (#1)] Future Scheduled 1950 CT Colonography (combo) [facility] 00:00:00 [code = CT Colonography Medi trudy Center (combo)] Future Scheduled 1950 Screening for malignant [facility] 00:00:00 neoplasm of colon Medical Ce nter (procedure) [code = 681383363] Future Scheduled 1951 Screening for malignant [facility] Test 00:00:00 neoplasm of colon Medical Ce nter (procedure) [code = 630936571] Future Scheduled 1951 Screening for malignant [facility] Test 00:00:00 neoplasm of colon Medical Ce nter (procedure) [code = 012998260] Future Scheduled 1951 Screening for malignant [facility] Test 00:00:00 neoplasm of colon Medical Ce nter (procedure) [code = 685893493] Future Scheduled 1950 Sigmoidoscopy [code = [facility] Sigmoidoscopy] Medical Cente r Future Scheduled 1951 CT Colonography (combo) [facility] 00:00:00 [code = CT Colonography Medi trudy Center (combo)] Future Scheduled 1951 Screening for malignant [facility] Test 00:00:00 neoplasm of colon Medical Ce nter (procedure) [code = 024099018] Future Scheduled 1951 Screening for malignant [facility] Test 00:00:00 neoplasm of colon Medical Ce nter (procedure) [code = 381934930] Future Scheduled 1951 Screening for malignant [facility] Test 00:00:00 neoplasm of colon Medical Ce nter (procedure) [code = 535772867] Future Scheduled 1951 Screening for malignant [facility] Test 00:00:00 neoplasm of colon Medical Ce nter (procedure) [code = 136026685] Future Scheduled 1950 Sigmoidoscopy [code = [facility] 00:[facility]:00 Sigmoidoscopy] Medical Cente r Encounters Start End Encounter Admission Attending Care Care Encounter Source Date/Time Date/Time Type Type Clinicians Facility Department ID 2023-04-25 2023-04-25 Outpatient FOG_Stocks_ AOSM AOSM [id number] Doreen 00:00:00 00:00:00 [facility] [id number] [facility] 2023-04-25 2023-04-25 Outpatient FOG_Stocks_ AOSM AOSM [id number] Doreen 00:00:00 00:00:00 [facility] [id number] [facility] 2023-04-11 2023-04-12 Inpatient EL Stocks, HCATO SURG [id number] [facility] 13:25:00 13:34:00 Jeremiah [facility] 2023-04-11 2023-04-11 Outpatient Stocks, HCACL LABO [id number] [facility] 17:04:00 17:04:00 Jeremiah Chang [facility] 2023-04-11 2023-04-11 Outpatient FOG_Stocks_ AOSM AOSM [id number] Doreen 00:00:00 00:00:00 [facility] [id number] [facility] 2023-04-11 2023-04-11 Outpatient FOG_Stocks_ AOSM AOSM [id number] Doreen 00:00:00 00:00:00 [facility]ar [id number] [facility] 2023-04-07 2023-04-07 Outpatient FOG_Stocks_ AOSM AOSM [id number] Doreen 00:00:00 00:00:00 Bandar [id number] [facility] 2023-03-16 2023-03-16 Outpatient FOG_Stocks_ AOSM AOSM [id number] Doreen 00:00:00 00:00:00 [facility] [id number] [facility] 2023-02-24 2023-02-24 Outpatient FOG_Stocks_ AOSM AOSM [id number] Doreen 00:00:00 00:00:00 [facility] [id number] [facility] 2023-02-22 2023-02-22 Outpatient FOG_Bennett AOSM AOSM [id number] Doreen 00:00:00 00:00:00 _Mic [id number] [facility] 2023-02-21 2023-02-21 Outpatient FOG_Bennett AOSM AOSM [id number] Doreen 00:00:00 00:00:00 _Mic [id number] [facility] 2023-01-24 2023-01-29 [facility] [id number] 05:21:00 11:56:00 Encounter RosariobobJermaine, [facility] enter 2023-01-24 2023-01-29 Inpatient ER [facility] Pulmonology [id number] [facility] 05:21:00 11:56:00 [facility] 2023-01-24 2023-01-29 [facility] [id number] 05:21:00 11:56:00 En[facility] enter 2023-01-24 2023-01-24 Travel [facility] [id number] [facility] 00:00:00 [facility] 2023-01-24 2023-01-24 Orders [facility] [id number] 00:00:00 00:00:00 Only [facility] 2023-01-24 2023-01-24 Travel [facility] [id number] [facility] 00:[facility] 00:00:00 [facility] 2023-01-24 2023-01-24 Orders [facility] [id number] 00:00:00 00:00:00 Only [facility] Results Test Description Test Time Test Comments Results Result Comments Source THROMBOPLASTIN TIME PARTIAL 2023-04-11 10:31:00 Test Item Value Reference Range Interpretation Comme nts PTT ACTIVATED (test code = APTT) 34.0 secs 25.1-36.5 N SPECIMEN COMMENT: PREIS PATIENT ON ANTICOAGULANTS ? YLIST ANTICOAGULANT/ANTI PLT MEDICATION : AspirinHas Lab been notified if Patient is on Heparin Drip? NOSPECIMEN COMMENT: PRE SURGPROTHROMBIN [id number] 10:31:00 Test Item Value Reference Range Interpretation Comments PROTHROMBIN TIME 11.1 secs 9.4-12.5 N PATIENT (test code = PTP) INTERNATIONAL NORMAL 0.99 <2.0 RECOMME NDED THERAPEUTIC RATIO (test code = RANGE FOR ORAL INR) ANTICOAGULANTTR EATMENT: CONDITION INRPr ophylaxis of venous throm bosis in 2.0 - 3.0 high- risk medical or surg ical patientsTreatme nt of venous thrombos is 2.0 - 3.0Prevention o f embolism 2.0 - 3.0Prevention o f recurrent embol ism, or 3.0 - 4.5 patie nts with mechanical pros thetic intravascular v kan SPECIMEN COMMENT: PREIS PATIENT ON ANTICOAGULANTS ? YLIST ANTICOAGULANT/ANTI PLT MEDICATION : AspirinHas Lab been notified if Patient is on Heparin Drip? NOSPECIMEN COMMENT: PRE SURGANTI-MITOCHONDRIAL AB, REFLEX TO [id number] 14:45:07 Test Item Value Reference Range Interpretation Comments SCAN RESULT (test code = SEE RESULTS BELOW [id number]) BLOOD [id number] 13:00:49 Test Item Value Reference Range Interpretation Comments CULTURE (BEAKER) (test No growth in 5 days code = 1095) BLOOD [id number] 13:00:49 Test Item Value Reference Range Interpretation Comments CULTURE (BEAKER) (test No growth in 5 days code = 1095) COMPREHENSIVE METABOLIC [id number] 06:31:09 Test Item Value Reference Range Interpretation Comments TOTAL PROTEIN 5.2 gm/dL 6.0-8.5 L (BEAKER) (test code = 770) ALBUMIN (BEAKER) 2.3 g/dL 3.5-5.0 L (test code = 1145) ALKALINE 124 U/L 30-115 H PHOSPHATASE (BEAKER) (test code = 346) BILIRUBIN TOTAL 1.0 mg/dL 0.1-1.3 (BEAKER) (test code = 377) SODIUM (BEAKER) 138 meq/L 135-148 (test code = 381) POTASSIUM (BEAKER) 4.1 meq/L 3.5-5.5 (test code = 379) CHLORIDE (BEAKER) 108 meq/L 98-106 H (test code = 382) CO2 (BEAKER) (test 23 meq/L 20-31 code = 355) BLOOD UREA 32 mg/dL 10-26 H NITROGEN (BEAKER) (test code = 354) CREATININE 1.23 mg/dL 0.50-1.20 H (BEAKER) (test code = 358) GLUCOSE RANDOM 111 mg/dL 70-110 H (BEAKER) (test code = 652) CALCIUM (BEAKER) 7.3 mg/dL 8.5-10.5 L (test code = 697) AST (SGOT) 89 U/L 5-40 H (BEAKER) (test code = 353) ALT (SGPT) 118 U/L 6-50 H (BEAKER) (test code = 347) EGFR (BEAKER) 63 Interpretatio n of eGFR (test code = 1092) mL/min/1.[address] age Description sq m Result G1 Lay l or high >=90 G2 Mildly decreased 60-89 G3a Mildl y to moderately 45-5 9 G3b Moderately to s everely 30-44 G4 Severl y decreased 15-29 G5 Kidney failure <15Reported eGF R is based on the CKD-EPI 2020 equation that d oes not use a race coefficientEsti mated GFR is not as accur ate as Creatinine Geri marvin in predicting glom erular filtration rate . Estimated GFR is not appl icable for dialysis patien ts French Polisher ID - [id number] W/PLT COUNT & AUTO [id number] 05:48:29 Test Item Value Reference Range Interpretation Comments WHITE BLOOD CELL COUNT (BEAKER) 11.1 K/ L 4.0-10.0 H (test code = 775) RED BLOOD CELL COUNT (BEAKER) 4.12 M/ L 4.20-5.80 L (test code = 761) HEMOGLOBIN (BEAKER) (test code = 12.0 GM/DL 13.0-16.8 L 410) HEMATOCRIT (BEAKER) (test code = 35.3 % 36.0-50.0 L 411) MEAN CORPUSCULAR VOLUME (BEAKER) 86 fL 82-99 (test code = 753) MEAN CORPUSCULAR HEMOGLOBIN 29.1 pg 27.0-33.0 (BEAKER) (test code = 751) MEAN CORPUSCULAR HEMOGLOBIN CONC 34.0 GM/DL 32.0-36.0 (BEAKER) (test code = 752) RED CELL DISTRIBUTION WIDTH 14.3 % 12.0-15.0 (BEAKER) (test code = 412) PLATELET COUNT (BEAKER) (test 147 K/CU MM 150-430 L code = 756) MEAN PLATELET VOLUME (BEAKER) 11.6 fL 6.0-11.5 H (test code = 754) NUCLEATED RED BLOOD CELLS 0 /100 WBC 0-0 (BEAKER) (test code = 413) NEUTROPHILS RELATIVE PERCENT 75 % (BEAKER) (test code = 429) LYMPHOCYTES RELATIVE PERCENT 17 % (BEAKER) (test code = 430) MONOCYTES RELATIVE PERCENT 5 % (BEAKER) (test code = 431) EOSINOPHILS RELATIVE PERCENT 1 % (BEAKER) (test code = 432) BASOPHILS RELATIVE PERCENT 1 % (BEAKER) (test code = 437) NEUTROPHILS ABSOLUTE COUNT 8.25 K/ L 1.80-8.00 H (BEAKER) (test code = 670) LYMPHOCYTES ABSOLUTE COUNT 1.92 K/ L 1.48-4.50 (BEAKER) (test code = 414) MONOCYTES ABSOLUTE COUNT (BEAKER) 0.51 K/ L 0.00-1.30 (test code = 415) EOSINOPHILS ABSOLUTE COUNT 0.15 K/ L 0.00-0.50 (BEAKER) (test code = 416) BASOPHILS ABSOLUTE COUNT (BEAKER) 0.06 K/ L 0.00-0.20 (test code = 417) IMMATURE GRANULOCYTES-RELATIVE 1.50 % 0.00-0.00 H PERCENT (BEAKER) (test code = 2801) POC-Glucose [id number] 05:39:29 Test Item Value Reference Range Interpretation Comments POC-Glucose Meter (test 126 mg/dL 70-110 H : TE STED AT [facility] code = 1538) [id number] [facility] [address]: French Polisher/Techni sarah ID = [id number] for Joanne Moore Lab Interpretation (test Abnormal code = 40961-4) [facility] [id number] 05:39:29 Test Item Value Reference Range Interpretation Comments POC-Glucose Meter (test 126 mg/dL 70-110 H : TE STED AT [facility] code = 1538) [address] [facility], [facility] [address]: French Polisher/Techni sarah ID = [id number] for Joanne Moore Lab Interpretation (test Abnormal code = 14003-3) [facility] [id number] 05:39:29 Test Item Value Reference Range Interpretation Comments POC-GLUCOSE METER 126 mg/dL 70-110 H : TESTED A T [facility] [address] (BEAKER) (test code [facility], = 1538) [place] [address] 384: French Polisher/Techni sarah ID = [id number] for Joanne Alexander POCT-GLUCOSE [id number] 20:44:34 Test Item Value Reference Range Interpretation Comments POC-GLUCOSE METER 128 mg/dL 70-110 H : TESTED A T [facility] [address] (BEAKER) (test code [facility], = 1538) [place] [address] 384: French Polisher/Techni sarah ID = [id number] for Joanne Alexander POCT-GLUCOSE [id number] 16:24:13 Test Item Value Reference Range Interpretation Comments POC-GLUCOSE METER 198 mg/dL 70-110 H : TESTED A T [facility] [address] (BEAKER) (test code [facility], = 1538) [place] [address] 384: French Polisher/Techni sarah ID = [id number] for C Col cedrickton POCT-GLUCOSE [id number] 12:17:57 Test Item Value Reference Range Interpretation Comments POC-GLUCOSE METER 137 mg/dL 70-110 H : TESTED A T [facility] [address] (BEAKER) (test code [facility], = 1538) [place] [address] 384: French Polisher/Techni sarah ID = [id number] for C shimao Vicente COMPREHENSIVE METABOLIC [id number] 05:47:50 Test Item Value Reference Range Interpretation Comments TOTAL PROTEIN 5.5 gm/dL 6.0-8.5 L (BEAKER) (test code = 770) ALBUMIN (BEAKER) 2.5 g/dL 3.5-5.0 L (test code = 1145) ALKALINE 152 U/L 30-115 H PHOSPHATASE (BEAKER) (test code = 346) BILIRUBIN TOTAL 1.4 mg/dL 0.1-1.3 H (BEAKER) (test code = 377) SODIUM (BEAKER) 137 meq/L 135-148 (test code = 381) POTASSIUM (BEAKER) 3.9 meq/L 3.5-5.5 (test code = 379) CHLORIDE (BEAKER) 103 meq/L 98-106 (test code = 382) CO2 (BEAKER) (test 26 meq/L 20-31 code = 355) BLOOD UREA 48 mg/dL 10-26 H NITROGEN (BEAKER) (test code = 354) CREATININE 1.60 mg/dL 0.50-1.20 H (BEAKER) (test code = 358) GLUCOSE RANDOM 113 mg/dL 70-110 H (BEAKER) (test code = 652) CALCIUM (BEAKER) 7.6 mg/dL 8.5-10.5 L (test code = 697) AST (SGOT) 110 U/L 5-40 H (BEAKER) (test code = 353) ALT (SGPT) 143 U/L 6-50 H (BEAKER) (test code = 347) EGFR (BEAKER) 46 Interpretatio n of eGFR (test code = 1092) mL/min/1.[address] age Description sq m Result G1 Lay l or high >=90 G2 Mildly decreased 60-89 G3a Mildl y to moderately 45-5 9 G3b Moderately to s everely 30-44 G4 Severl y decreased 15-29 G5 Kidney failure <15Reported eGF R is based on the CKD-EPI 2021 equation that d oes not use a race coefficientEsti mated GFR is not as accur ate as Creatinine Geri wong in predicting glom erular filtration rate . Estimated GFR is not appl icable for dialysis patien ts French Polisher ID - [id number] W/PLT COUNT & AUTO [id number] 05:35:47 Test Item Value Reference Range Interpretation Comments WHITE BLOOD CELL COUNT (BEAKER) 12.1 K/ L 4.0-10.0 H (test code = 775) RED BLOOD CELL COUNT (BEAKER) 4.64 M/ L 4.20-5.80 (test code = 761) HEMOGLOBIN (BEAKER) (test code = 13.3 GM/DL 13.0-16.8 410) HEMATOCRIT (BEAKER) (test code = 40.6 % 36.0-50.0 411) MEAN CORPUSCULAR VOLUME (BEAKER) 88 fL 82-99 (test code = 753) MEAN CORPUSCULAR HEMOGLOBIN 28.7 pg 27.0-33.0 (BEAKER) (test code = 751) MEAN CORPUSCULAR HEMOGLOBIN CONC 32.8 GM/DL 32.0-36.0 (BEAKER) (test code = 752) RED CELL DISTRIBUTION WIDTH 14.3 % 12.0-15.0 (BEAKER) (test code = 412) PLATELET COUNT (BEAKER) (test 122 K/CU MM 150-430 L code = 756) MEAN PLATELET VOLUME (BEAKER) 12.5 fL 6.0-11.5 H (test code = 754) NUCLEATED RED BLOOD CELLS 0 /100 WBC 0-0 (BEAKER) (test code = 413) NEUTROPHILS RELATIVE PERCENT 75 % (BEAKER) (test code = 429) LYMPHOCYTES RELATIVE PERCENT 17 % (BEAKER) (test code = 430) MONOCYTES RELATIVE PERCENT 4 % (BEAKER) (test code = 431) EOSINOPHILS RELATIVE PERCENT 1 % (BEAKER) (test code = 432) BASOPHILS RELATIVE PERCENT 1 % (BEAKER) (test code = 437) NEUTROPHILS ABSOLUTE COUNT 9.10 K/ L 1.80-8.00 H (BEAKER) (test code = 670) LYMPHOCYTES ABSOLUTE COUNT 2.08 K/ L 1.48-4.50 (BEAKER) (test code = 414) MONOCYTES ABSOLUTE COUNT (BEAKER) 0.49 K/ L 0.00-1.30 (test code = 415) EOSINOPHILS ABSOLUTE COUNT 0.11 K/ L 0.00-0.50 (BEAKER) (test code = 416) BASOPHILS ABSOLUTE COUNT (BEAKER) 0.10 K/ L 0.00-0.20 (test code = 417) IMMATURE GRANULOCYTES-RELATIVE 2.10 % 0.00-0.00 H PERCENT (BEAKER) (test code = 2801) POCT-GLUCOSE [id number] 21:24:11 Test Item Value Reference Range Interpretation Comments POC-GLUCOSE METER 139 mg/dL 70-110 H : TESTED A T [facility] [address] (BEAKER) (test code [facility], = 1538) [place] [address] 384: French Polisher/Techni sarah ID = [id number] for Kranthi Aragon POCT-GLUCOSE [id number] 16:59:37 Test Item Value Reference Range Interpretation Comments POC-GLUCOSE METER 128 mg/dL 70-110 H : TESTED A T [facility] [address] (BEAKER) (test code [facility], = 1538) [place] [address] 384: French Polisher/Techni sarah ID = [id number] for A Edie dye [id number] 16:28:15 Test Item Value Reference Range Interpretation Comments AMMONIA (BEAKER) (test code = 348) 23 mol/L French Polisher ID - [id number], CHEST, 1 VIEW, NON [id number] 13:51:00Reason for exam:->acute hypoxic respiratory failureShould this be performed at the bedside?->YesKA[facility] : 1950 Sex: MFINAL REPORT Chest AP portable COMPARISON STUDY: 01/25/2023 History provided: Acute hypoxicrespiratory failure Degree of inspiration is poor. Heart size normal. Right basilar subsegmental atelectasis persists. Lungs otherwise clear and vascularity normal. Signed: Jesus Manuel Mcneill Verified Date/Time: 01/27/2023 13:51:10 Reading Location: [facility] Imaging Reading Room [place] [address] 1.310.12 -GLUCOSE [id number] 12:58:31 Test Item Value Reference Range Interpretation Comments POC-GLUCOSE METER 130 mg/dL 70-110 H : TESTED A T [facility] [address] (BEAKER) (test code [facility], = 1538) [place] [address] 384: French Polisher/Techni sarah ID = [id number] for A Edie dye HEPATIC FUNCTION [id number] 10:50:18 Test Item Value Reference Range Interpretation Comments TOTAL PROTEIN (BEAKER) (test code = 5.8 gm/dL 6.0-8.5 L 770) ALBUMIN (BEAKER) (test code = 1145) 2.5 g/dL 3.5-5.0 L BILIRUBIN TOTAL (BEAKER) (test code 1.8 mg/dL 0.1-1.3 H = 377) BILIRUBIN DIRECT (BEAKER) (test 0.8 mg/dL 0.0-0.5 H code = 706) ALKALINE PHOSPHATASE (BEAKER) (test 202 U/L 30-115 H code = 346) AST (SGOT) (BEAKER) (test code = 156 U/L 5-40 H 353) ALT (SGPT) (BEAKER) (test code = 202 U/L 6-50 H 347) French Polisher ID - [id number], ABDOMEN, [id number] 08:54:00Unlisted Reason for Exam - Click Yes and Enter Reason Below->No [facility] : 1950 Sex: MFINAL REPORT TECHNIQUE: MRI of the abdomen and MRCP WITHOUT intravenous contrast. 3-D volume reconstructions were obtained to evaluate the biliary ductal system. INDICATION: Hepatic failure.COMPARISON: CT from 01/23/2023. FINDINGS: ABSENCE OF INTRAVENOUS CONTRAST DECREASES SENSITIVITY FOR DETECTION OF FOCAL LESIONS AND VASCULAR PATHOLOGY. Evaluation is suboptimal due to respiratory motion artifact on some sequences. LOWER THORAX: Mild bibasilar atelectasis. LIVER: There is scattered loss of signal in the liver on out of phase imaging. There is a rounded area in segment VIII which measures 0.8 cm and is indeterminate. This is most likely a portosystemic shunt. BILIARY: Prior cholecystectomy. The common bile duct measures 0.8 cm in diameter, and the common hepatic duct measures 1.5 cm indiameter. No significant intrahepatic ductal dilation.SPLEEN: 16 cm splenomegaly.PANCREAS: No focal masses or ductal dilatation. ADRENALS: No adrenal nodules.KIDNEYS/URETERS: No hydronephrosis or solidmass lesions. A few bilateral simple renal cysts measure up to 5.2 cm. No follow-up imaging is recommended for these findings. PERITONEUM/RETROPERITONEUM: No free fluid.LYMPH NODES: No lymphadenopathy.VESSELS: Unremarkable. GI TRACT: No distention or wall thickening. Moderate diverticulosis of the sigmoid colon. BONES AND SOFT TISSUES: Unremarkable. IMPRESSION: 1.The common hepatic duct is mildly dilated but without other findings to suggest obstruction. [place] phenomenon from a prior cholecystectomy is possible. 2.Geographic fatty infiltration of the liver 3.Moderate splenomegaly Signed: Madhu Leblanc MDReport Verified Date/Time: 01/27/2023 08:54:01 Reading Location: [address] Consult Reading Room BASIC METABOLIC [id number] 06:39:37 Test Item Value Reference Range Interpretation Comments SODIUM (BEAKER) 137 meq/L 135-148 (test code = 381) POTASSIUM 4.0 meq/L 3.5-5.5 (BEAKER) (test code = 379) CHLORIDE (BEAKER) 101 meq/L 98-106 (test code = 382) CO2 (BEAKER) 23 meq/L 20-31 (test code = 355) BLOOD UREA 48 mg/dL 10-26 H NITROGEN (BEAKER) (test code = 354) CREATININE 1.53 mg/dL 0.50-1.20 H (BEAKER) (test code = 358) GLUCOSE RANDOM 130 mg/dL 70-110 H (BEAKER) (test code = 652) CALCIUM (BEAKER) 8.2 mg/dL 8.5-10.5 L (test code = 697) EGFR (BEAKER) 49 Interpretatio n of eGFR (test code = mL/min/1.73 values Stage De scription 1092) sq m Result G1 Lay l or high >=90 G2 Mildly decreased 60-89 G3a Mildl y to moderately 45-5 9 G3b Moderately to s everely 30-44 G4 Severl y decreased 15-29 G5 Kidney failure <15Reported eGF R is based on the CKD-EPI 2020 equation that d oes not use a race coefficientEsti mated GFR is not as accur ate as Creatinine Geri wong in predicting glom erular filtration rate . Estimated GFR is not appl icable for dialysis patien ts French Polisher ID - [id number] W/PLT COUNT & AUTO [id number] 06:11:02 Test Item Value Reference Range Interpretation Comments WHITE BLOOD CELL COUNT 12.1 K/ L 4.0-10.0 H (BEAKER) (test code = 775) RED BLOOD CELL COUNT 5.05 M/ L 4.20-5.80 (BEAKER) (test code = 761) HEMOGLOBIN (BEAKER) 14.5 GM/DL 13.0-16.8 (test code = 410) HEMATOCRIT (BEAKER) 43.4 % 36.0-50.0 (test code = 411) MEAN CORPUSCULAR VOLUME 86 fL 82-99 (BEAKER) (test code = 753) MEAN CORPUSCULAR 28.7 pg 27.0-33.0 HEMOGLOBIN (BEAKER) (test code = 751) MEAN CORPUSCULAR 33.4 GM/DL 32.0-36.0 HEMOGLOBIN CONC (BEAKER) (test code = 752) RED CELL DISTRIBUTION 14.1 % 12.0-15.0 WIDTH (BEAKER) (test code = 412) PLATELET COUNT (BEAKER) 91 K/CU MM 150-430 L Resu lt discordant to (test code = 756) previous r esults maybe due to IV fluid therapy a nd medications. MEAN PLATELET VOLUME 13.6 fL 6.0-11.5 H (BEAKER) (test code = 754) NUCLEATED RED BLOOD 0 /100 WBC 0-0 CELLS (BEAKER) (test code = 413) NEUTROPHILS RELATIVE 82 % PERCENT (BEAKER) (test code = 429) LYMPHOCYTES RELATIVE 11 % PERCENT (BEAKER) (test code = 430) MONOCYTES RELATIVE 5 % PERCENT (BEAKER) (test code = 431) EOSINOPHILS RELATIVE 0 % PERCENT (BEAKER) (test code = 432) BASOPHILS RELATIVE 1 % PERCENT (BEAKER) (test code = 437) NEUTROPHILS ABSOLUTE 9.88 K/ L 1.80-8.00 H COUNT (BEAKER) (test code = 670) LYMPHOCYTES ABSOLUTE 1.31 K/ L 1.48-4.50 L COUNT (BEAKER) (test code = 414) MONOCYTES ABSOLUTE 0.57 K/ L 0.00-1.30 COUNT (BEAKER) (test code = 415) EOSINOPHILS ABSOLUTE 0.05 K/ L 0.00-0.50 COUNT (BEAKER) (test code = 416) BASOPHILS ABSOLUTE 0.06 K/ L 0.00-0.20 COUNT (BEAKER) (test code = 417) IMMATURE 1.90 % 0.00-0.00 H GRANULOCYTES-RELATIVE PERCENT (BEAKER) (test code = 2801) POCT-GLUCOSE [id number] 05:52:43 Test Item Value Reference Range Interpretation Comments POC-GLUCOSE METER 135 mg/dL 70-110 H : TESTED A T [facility] [address] (BEAKER) (test code [facility], = 1538) [place] [address] 384: French Polisher/Techni sarah ID = [id number] for Karmen Lara COVID [id number] 22:29:18 Test Item Value Reference Range Interpretation Comments SARS COVID ANTIGEN Negative Negative, (test code = 11206-3) Presumptive Positive WESLY (test code = WESLY) The QuickVue SARS Antigen test does not differentiate between SARS-CoV and SARS-CoV-2. The test has been authorized by the FDA under an EUA for use by authorized laboratories. Lab Interpretation Normal (test code = 24704-5) [place] [facility] [id number] 22:29:18 Test Item Value Reference Range Interpretation Comments SARS COVID ANTIGEN Negative Negative, (test code = 03890-8) Presumptive Positive WESLY (test code = WESLY) The QuickVue SARS Antigen test does not differentiate between SARS-CoV and SARS-CoV-2. The test has been authorized by the FDA under an EUA for use by authorized laboratories. Lab Interpretation Normal (test code = 62866-6) [place] [facility] [id number] 22:29:18 Test Item Value Reference Range Interpretation Comments SARS COVID ANTIGEN (test Negative Negative, Presumptive code = 89977495) Positive The QuickVue SARS Antigen test does not differentiate between SARS-CoV and SARS-CoV-2.The test has been authorized by the FDA under an EUA for use by authorized laboratories.CT, CHEST, WITHOUT [id number] 18:58:00Unlisted Reason for Exam - Click Yes and Enter Reason Below->No [facility] : 1950 Sex: MFINAL REPORT EXAM: CT Chest WITHOUT intravenous contrast 01/26/2023 6:42 PMINDICATION: Pneumonia, unresolvedCOMPARISON: Chest radiograph from yesterday.TECHNIQUE:Chest was scanned utilizing a multidetector helical scanner from the lung apex through the level of the adrenal glands without admin istration of IV contrast. Coronal and sagittal reformations were obtained. Routine protocol was performed. IV CONTRAST: NoneRADIATION DOSE: Total DLP: 643.4 mGy*cm. Dose modulation, iterative reconstruction, and/or weight based adjustment of the mA/kV was utilized to reduce the radiation dose to as low as reasonably achievable. COMPLICATIONS: None FINDINGS: LINES/ TUBES: None. LUNGS AND AIRWAYS: Bibasilar opacities likely represent subsegmental atelectasis. Superimposed infection or aspiration is not excluded. Airways are normal. PLEURA: The pleural spaces are clear. HEART AND MEDIASTINUM: The thyroid gland is normal. No mediastinal, hilar or axillary lymphadenopathy. The heart is normal in size..There is no pericardial effusion. UPPER ABDOMEN: Status post cholecystectomy. Prominent common duct is likely secondary to postcholecystectomy effects. BONES: Degenerative changes noted in the spine. SO FT TISSUES: Unremarkable. IMPRESSION: Bibasilar opacities likely represent subsegmental atelectasis.Superimposed infection or aspiration excluded. Signed: Schuyler Alvarez MDReport Verified Date/Time: 01/26/2023 18:58:47 POCT-GLUCOSE [id number] 16:50:56 Test Item Value Reference Range Interpretation Comments POC-GLUCOSE METER 209 mg/dL 70-110 H : TESTED [place]ala [facility] [address] (BEAKER) (test code [facility], = 1538) [facility] [address] 384: French Polisher/Techni sarah ID = [id number] for Patito Chanel ANTI-NUCLEAR ANTIBODY (NATACHA)2023-01-26 14:13:36 Test Item Value Reference Range Interpretation Comments ANTI-NUCLEAR ANTIBODY (NATACHA) (BEAKER) Negative Negative (test code = 418) Test performed by IFA method.Test performed by IFA method.HEPATIC FUNCTION PANEL 2023-01-26 13:15:21 Test Item Value Reference Range Interpretation Comments TOTAL PROTEIN (BEAKER) (test code = 5.3 gm/dL 6.0-8.5 L 770) ALBUMIN (BEAKER) (test code = 1145) 2.5 g/dL 3.5-5.0 L BILIRUBIN TOTAL (BEAKER) (test code 1.4 mg/dL 0.1-1.3 H = 377) BILIRUBIN DIRECT (BEAKER) (test 0.7 mg/dL 0.0-0.5 H code = 706) ALKALINE PHOSPHATASE (BEAKER) (test 187 U/L 30-115 H code = 346) AST (SGOT) (BEAKER) (test code = 216 U/L 5-40 H 353) ALT (SGPT) (BEAKER) (test code = 254 U/L 6-50 H 347) French Polisher ID - [id number] 12:40:21 Test Item Value Reference Range Interpretation Comments POC-GLUCOSE METER 205 mg/dL 70-110 H : TESTED A T [facility] [address] (BEAKER) (test code [facility], = 1538) [place] [address] 384: French Polisher/Techni sarah ID = [id number] for A Edie dye POCT-GLUCOSE [id number] 06:38:55 Test Item Value Reference Range Interpretation Comments POC-GLUCOSE METER 245 mg/dL 70-110 H : TESTED A T [facility] [address] (BEAKER) (test code [facility], = 1538) [place] [address] 384: French Polisher/Techni sarah ID = [id number] for Marlen Morin 2D Echo W/Doppler(CW/PW/Color)2023-01-26 06:00:40Ejection FractionSLEH [facility]CHO [facility]CW/PW/Color[facility]2023-01-26 06:00:40Ejection FractionSLE ECHO [facility]ARTLAB [facility]T [facility] & AUTO [id number] 05:48:40 Test Item Value Reference Range Interpretation Comments WHITE BLOOD CELL COUNT (BEAKER) 13.1 K/ L 4.0-10.0 H (test code = 775) RED BLOOD CELL COUNT (AKER) 4.60 M/ L 4.20-5.80 (test code = 761) HEMOGLOBIN (BEAKER) (test code = 13.3 GM/DL 13.0-16.8 410) HEMATOCRIT (BEAKER) (test code = 39.1 % 36.0-50.0 411) MEAN CORPUSCULAR VOLUME (BEAKER) 85 fL 82-99 (test code = 753) MEAN CORPUSCULAR HEMOGLOBIN 28.9 pg 27.0-33.0 (BEAKER) (test code = 751) MEAN CORPUSCULAR HEMOGLOBIN CONC 34.0 GM/DL 32.0-36.0 (BEAKER) (test code = 752) RED CELL DISTRIBUTION WIDTH 13.6 % 12.0-15.0 (BEAKER) (test code = 412) PLATELET COUNT (BEAKER) (test code 57 K/CU MM 150-430 L = 756) MEAN PLATELET VOLUME (BEAKER) 13.6 fL 6.0-11.5 H (test code = 754) NUCLEATED RED BLOOD CELLS (BEAKER) 0 /100 WBC 0-0 (test code = 413) NEUTROPHILS RELATIVE PERCENT 83 % (BEAKER) (test code = 429) LYMPHOCYTES RELATIVE PERCENT 11 % (BEAKER) (test code = 430) MONOCYTES RELATIVE PERCENT 5 % (BEAKER) (test code = 431) EOSINOPHILS RELATIVE PERCENT 0 % (BEAKER) (test code = 432) BASOPHILS RELATIVE PERCENT 0 % (BEAKER) (test code = 437) NEUTROPHILS ABSOLUTE COUNT 10.91 K/ L 1.80-8.00 H (BEAKER) (test code = 670) LYMPHOCYTES ABSOLUTE COUNT 1.44 K/ L 1.48-4.50 L (BEAKER) (test code = 414) MONOCYTES ABSOLUTE COUNT (BEAKER) 0.61 K/ L 0.00-1.30 (test code = 415) EOSINOPHILS ABSOLUTE COUNT 0.01 K/ L 0.00-0.50 (BEAKER) (test code = 416) BASOPHILS ABSOLUTE COUNT (BEAKER) 0.05 K/ L 0.00-0.20 (test code = 417) IMMATURE GRANULOCYTES-RELATIVE 0.60 % 0.00-0.00 H PERCENT (BEAKER) (test code = 2801) BASIC METABOLIC [id number] 05:14:29 Test Item Value Reference Range Interpretation Comments SODIUM (BEAKER) 133 meq/L 135-148 L (test code = 381) POTASSIUM 3.9 meq/L 3.5-5.5 (BEAKER) (test code = 379) CHLORIDE (BEAKER) 98 meq/L 98-106 (test code = 382) CO2 (BEAKER) 21 meq/L 20-31 (test code = 355) BLOOD UREA 41 mg/dL 10-26 H NITROGEN (BEAKER) (test code = 354) CREATININE 1.25 mg/dL 0.50-1.20 H (BEAKER) (test code = 358) GLUCOSE RANDOM 226 mg/dL 70-110 H (BEAKER) (test code = 652) CALCIUM (BEAKER) 7.5 mg/dL 8.5-10.5 L (test code = 697) EGFR (BEAKER) 62 Interpretatio n of eGFR (test code = mL/min/1.73 values Stage De scription 1092) sq m Result G1 Lay l or high >=90 G2 Mildly decreased 60-89 G3a Mildl y to moderately 45-5 9 G3b Moderately to s everely 30-44 G4 Severl y decreased 15-29 G5 Kidney failure <15Reported eGF R is based on the CKD-EPI 2020 equation that d oes not use a race coefficientEsti mated GFR is not as accur ate as Creatinine Geri marvin in predicting glom erular filtration rate . Estimated GFR is not appl icable for dialysis patien ts French Polisher ID - VATPOCT-GLUCOSE [id number] 01:41:01 Test Item Value Reference Range Interpretation Comments POC-GLUCOSE METER 253 mg/dL 70-110 H : TESTED A T [facility] [address] (BEAKER) (test code [facility], = 1538) [place] [address] 384: French Polisher/Techni sarah ID = [id number] for Barbara Roblero [id number] 22:51:50 Test Item Value Reference Range Interpretation Comments ALPHA-1 ANTITRYPSIN (BEAKER) 337.10 mg/dL 90.00-200.00 H (test code = 502) French Polisher ID - MMOperator ID - [id number]-GLUCOSE [id number] 21:48:26 Test Item Value Reference Range Interpretation Comments POC-GLUCOSE METER 223 mg/dL 70-110 H : TESTED A T [facility] 67506 (BEAKER) (test code [facility], = 1538) [place] [address] 384: French Polisher/Techni sarah ID = [id number] for Marlen Morin [id number] 20:25:11 Test Item Value Reference Range Interpretation Comments FERRITIN (BEAKER) (test code = 41250.90 ng/mL 22.00-322.00 H 361) French Polisher ID - [id number] ID - [id number], TIBC, % SAT. (WITHOUT FERRITIN) 2023-01-25 19:25:07 Test Item Value Reference Range Interpretation Comments IRON (BEAKER) (test code = 547) 39.0 ug/dL 35.0-175.0 TOTAL IRON BINDING CAPACITY 154 ug/dL 250-550 L (BEAKER) (test code = 769) IRON % SATURATION (2) (BEAKER) 25 % 20-55 (test code = 2590) French Polisher ID - [id number] 18:42:26 Test Item Value Reference Range Interpretation Comments POC-GLUCOSE METER 257 mg/dL 70-110 H : TESTED A T [facility] [address]341 (BEAKER) (test code [facility], = 1538) [place] [address] 384: French Polisher/Techni sarah ID = [id number] for S Chandana christina VENOUS DOPPLER ARMS, [id number] 18:28:00Reason for exam:->bue swellingCHI ALTA BATES [facility]Name: [facility] : 1950 Sex: MFINAL REPORT HISTORY : Edema COMMENT : Ultrasound examination of the bilateral upper extremity was performed. Grayscale, color and spectral Doppler scans demonstrate a normal grayscale appearance with color flow identified in the bilateral internal jugular, subclavian, axillary, brachial, cephalic and basilic veins. There are no findings to suggest acute deep venous thrombosis. IMPRESSION: No evidence of bilateral upper extremity deep venous thrombosis. Signed: [facility]uyler Alvarez [facility] Verified Date/Time: 01/25/2023 18:28:21 PROCALCITONIN 2023-01-25 15:27:46 Test Item Value Reference Range Interpretation Comments PROCALCITONIN (BEAKER) (test code 2.63 ng/mL <0.05 H = 3036) SEPSIS RISK (ng/mL)Low: 0.05-0.50Intermediate: 0.51-2.00High: >=2.01POCT- GLUCOSE [id number] 12:46:25 Test Item Value Reference Range Interpretation Comments POC-GLUCOSE METER 175 mg/dL 70-110 H : TESTED A T [facility] [address] (NIDA) (test code [facility], = 1538) [facility] 77 384: French Polisher/Techni sarah ID = [id number] for C apps, Dianamarie TSH/FREE T4 IF [id number] 11:36:03 Test Item Value Reference Range Interpretation Comments THYROID STIMULATING HORMONE 0.370 uIU/mL 0.350-5.500 (NIDA) (test code = 772) French Polisher ID - [id number], CHEST, 1 VIEW, NON [id number] 09:20:00Reason for exam:->resp evalShould this be performed at the bedside?->Yes [facility] : 1950 Sex: MFINAL REPORT Chest AP portable COMPARISON STUDY: 01/24/2023 History provided: Respiratory evaluation Heart size normal. Mild bibasilar atelectatic change. Lungs are poorly expanded but otherwise grossly clear, with vascularity normal. Signed: Jesus Manuel [place] Verified Date/Time: 01/25/2023 09:20:13 Reading Location: [facility] Radiology Reading Room VENOUS DOPPLER LEGS, [id number] 07:38:00 Reason for exam:->r/o DVT [facility] : 1950 Sex: MFINAL REPORT Bilateral lower extremity venous Doppler History: Assess for deep venous thrombosis Comparison: none Findings: Study is obtained using greenberg scale, compression technique, and color flow/spectral analysis. Within the right lower extremity, nonocclusive deep venous thrombosis is visualized within the right common femoral vein as well as the proximal aspect of the right superficialfemoral vein. Visualized portions of the right posterior tibial and peroneal veins also show nonocclusive thrombus. Within the left lower extremity, nonocclusive deep venous thrombosis is visualized within the left common femoral vein and proximal and mid portions of the left superficial femoral vein. Superficial venous thrombus is visualized within the left greater saphenous vein. Remainder of the interrogated veins and the bilateral lower extremities appear patent. Impression: Bilateral nonocclusive deep venous thrombi as described above. Signed: Osmel Reyes MDReport Verified Date/Time: 01/25/2023 07:38:06 PHERAL BLOOD SMEAR - PATH REVIEW LAB [id number] 07:24:07 Test Item Value Reference Range Interpretation Comments PERIPHERAL SMR REVIEW Thrombocytopenia. Rare (BEAKER) (test code = platelet clump seen on 2640) smear review. No schistocytes seen. Recommend repeat platelet count. WBCs and RBCs unremarkable. [id number] Stan Diaz M.D. (BEBIANCA) (test code = (electronic signature) 2793) (MANUAL DIFFERENTIAL)2023-01-25 07:22:23 Test Item Value Reference Range Interpretation Comments NEUTROPHILS - REL (DIFF) (BEAKER) 88 % (test code = 1359) LYMPHOCYTES - REL (DIFF) (BEAKER) 6 % (test code = 1360) MONOCYTES - REL (DIFF) (BEAKER) 2 % (test code = 1361) BANDS - REL (DIFF) (BEAKER) (test 4 % 0-10 code = 1348) NEUTROPHILS - ABS (DIFF) (BEAKER) 8.18 K/ L 1.80-8.00 H (test code = 1365) LYMPHOCYTES - ABS (DIFF) (BEAKER) 0.56 K/ L 1.48-4.50 L (test code = 1366) MONOCYTES - ABS (DIFF) (BEAKER) 0.19 K/ L 0.00-1.30 (test code = 1367) BANDS-ABS (DIFF) (BEAKER) (test 0.4 K/ L 0.0-0.8 code = 1349) TOTAL COUNTED (BEAKER) (test code = 100 1351) BANDS + SEGMENTED NEUTROPHILS 8.56 (BEAKER) (test code = 1352) WBC MORPHOLOGY (BEAKER) (test code Normal = 487) PLT MORPHOLOGY (BEAKER) (test code Normal = 486) RBC MORPHOLOGY (BEAKER) (test code Normal = 762) U/S, ABDOMINAL, [id number] 05:25:00Abdomen limited area? Add comment if clarification is needed.->Right upper quadrantReason for exam:->elevated LFTsShould this be performed at the bedside?->Yes [facility] : 1950 Sex: MFINAL REPORT History: elevated LFTs Abdominal ultrasound dated 01/24/2023 Comparison: None Comment: Real-time transabdominal ultrasound of the right upper quadrant abdomen was performed. Liver: 18.4 cm , enlarged. Normal echogenicity. No focal lesions. Gallbladder: Absent. Biliary tree: No intrahepatic ductal dilatation. CBD: 8 mm. MPV: 11 mm Pancreas: Obscured by overlying bowel gas. Rightkidney: 12.8 x 6.4 x 5.5 cm. Normal echogenicity. No ascites is present in the abdomen. The visualized abdominal aorta is normal in caliber. The IVC and Hepatic veins are patent. Impression: Hepatomegaly. Prior cholecystectomy. The common bile duct is prominent in caliber, an appearance which can be normal after cholecystectomy and in a patient of this age. Please correlate with LFTs. Further evaluation with MRCP can be considered if biliary obstruction is clinically suspected. Signed: Kennedy Romo Verified Date/Time: 01/25/2023 05:25:03 CBC W/PLT COUNT & AUTO [id number] 04:07:35 Test Item Value Reference Range Interpretation Comments WHITE BLOOD CELL COUNT (BEAKER) 9.3 K/ L 4.0-10.0 (test code = 775) RED BLOOD CELL COUNT (BEAKER) 4.79 M/ L 4.20-5.80 (test code = 761) HEMOGLOBIN (BEAKER) (test code = 13.8 GM/DL 13.0-16.8 410) HEMATOCRIT (BEAKER) (test code = 40.8 % 36.0-50.0 411) MEAN CORPUSCULAR VOLUME (BEAKER) 85 fL 82-99 (test code = 753) MEAN CORPUSCULAR HEMOGLOBIN 28.8 pg 27.0-33.0 (BEAKER) (test code = 751) MEAN CORPUSCULAR HEMOGLOBIN CONC 33.8 GM/DL 32.0-36.0 (BEAKER) (test code = 752) RED CELL DISTRIBUTION WIDTH 13.6 % 12.0-15.0 (BEAKER) (test code = 412) PLATELET COUNT (BEAKER) (test code 48 K/CU MM 150-430 L = 756) MEAN PLATELET VOLUME (BEAKER) 13.4 fL 6.0-11.5 H (test code = 754) NUCLEATED RED BLOOD CELLS (BEAKER) 0 /100 WBC 0-0 (test code = 413) BASIC METABOLIC [id number] 03:55:23 Test Item Value Reference Range Interpretation Comments SODIUM (BEAKER) 136 meq/L 135-148 (test code = 381) POTASSIUM 3.7 meq/L 3.5-5.5 (BEAKER) (test code = 379) CHLORIDE (BEAKER) 104 meq/L 98-106 (test code = 382) CO2 (BEAKER) 24 meq/L 20-31 (test code = 355) BLOOD UREA 34 mg/dL 10-26 H NITROGEN (BEAKER) (test code = 354) CREATININE 1.28 mg/dL 0.50-1.20 H (BEAKER) (test code = 358) GLUCOSE RANDOM 145 mg/dL 70-110 H (BEAKER) (test code = 652) CALCIUM (BEAKER) 7.8 mg/dL 8.5-10.5 L (test code = 697) EGFR (BEAKER) 60 Interpretatio n of eGFR (test code = mL/min/1.73 values Stage De scription 1092) sq m Result G1 Lay l or high >=90 G2 Mildly decreased 60-89 G3a Mildl y to moderately 45-5 9 G3b Moderately to s everely 30-44 G4 Sever ly decreased 15-29 G5 Kidney failure <15Repo rted eGFR is based on the CKD-EPI 2020 equation t hat does not use a race coefficientEsti mated GFR is not as accur ate as Creatinine Geri marvin in predicting glom erular filtration rate . Estimated GFR is not appl icable for dialysis patien ts French Polisher ID - VATHEPATIC FUNCTION [id number] 03:55:09 Test Item Value Reference Range Interpretation Comments TOTAL PROTEIN (BEAKER) (test code = 5.3 gm/dL 6.0-8.5 L 770) ALBUMIN (BEAKER) (test code = 1145) 2.6 g/dL 3.5-5.0 L BILIRUBIN TOTAL (BEAKER) (test code 1.8 mg/dL 0.1-1.3 H = 377) BILIRUBIN DIRECT (BEAKER) (test 1.0 mg/dL 0.0-0.5 H code = 706) ALKALINE PHOSPHATASE (BEAKER) (test 213 U/L 30-115 H code = 346) AST (SGOT) (BEAKER) (test code = 286 U/L 5-40 H 353) ALT (SGPT) (BEAKER) (test code = 323 U/L 6-50 H 347) French Polisher ID - VATLACTIC ACID, [id number] 00:15:02 Test Item Value Reference Range Interpretation Comments LACTATE BLOOD VENOUS (2) (BEAKER) 2.08 mmol/L 0.50-2.20 (test code = 2872) French Polisher ID - VATLACTIC ACID, [id number] 21:31:24 Test Item Value Reference Range Interpretation Comments LACTATE BLOOD VENOUS 2.37 mmol/L 0.50-2.20 H Specime n markedly (2) (BEAKER) (test hemolyzed code = 2872) French Polisher ID - JBALLOALLOPOCT-GLUCOSE [id number] 18:42:09 Test Item Value Reference Range Interpretation Comments POC-GLUCOSE METER 164 mg/dL 70-110 H : TESTED A T [facility] [address] (BEAKER) (test code [address] [facility], = 1538) [place] [address] 384: French Polisher/Techni sarah ID = [id number] for Stephanie Campbell POCT-GLUCOSE [id number] 18:41:38 Test Item Value Reference Range Interpretation Comments POC-GLUCOSE METER 157 mg/dL 70-110 H : TESTED A T [facility] [address] (BEAKER) (test code [facility], = 1538) [place] [address] 384: French Polisher/Techni sarah ID = [id number] for Stephanie Campbell LACTIC ACID, [id number] 15:52:58 Test Item Value Reference Range Interpretation Comments LACTATE BLOOD VENOUS 2.52 mmol/L 0.50-2.20 H Specime n slightly (2) (BEAKER) (test hemolyzed code = 2872) French Polisher ID - JBALLOALLOBLOOD GAS, [id number] 15:38:31 Test Item Value Reference Range Interpretation Comments PH VENOUS (BEAKER) (test code = 7.41 7.32-7.42 701) PCO2 VENOUS (BEAKER) (test code = 44 mm Hg 41-51 755) PO2 VENOUS (BEAKER) (test code = < mm Hg 25-40 L 702) O2 SATURATION VENOUS (BEAKER) 32.7 % 40.0-70.0 L (test code = 703) HCO3 VENOUS (BEAKER) (test code = 27 mmol/L 21-29 705) BASE EXCESS VENOUS (BEAKER) (test 2.1 mmol/L -2.0-3.0 code = 704) PATIENT TEMPERATURE (BEAKER) (test 38.0 code = 1818) FIO2 (BEAKER) (test code = 1819) 40.0 Urinalysis w/Microscopic + Reflex to [id number] 15:05:23 Test Item Value Reference Range Interpretation Comments Color, UA (test code Aletha = 5778-6) Clarity, UA (test Slightly Cloudy code = 5767-9) Specific [place], UA 1.001-1.035 Specifi c gravity (test code = 5811-5) perform ed on refractometer. pH, UA (test code = 5.0 5.0-8.0 5803-2) Protein, UA (test 100 mg/dL Negative A code = 12571-7) Glucose, UA (test Negative Negative code = 365) Ketones, UA (test Negative Negative code = 2514-8) Bilirubin, UA (test Negative Negative code = 46602-2) Blood, UA (test code Small Negative A = 78041-7) Nitrite, UA (test Negative Negative code = 5802-4) Leukocytes, UA (test Negative Negative code = 5799-2) Urobilinogen, UA (test code = 16705-1) RBC, UA (test code = 22 See_Comment [Autom ated 75594-3) message] The system which generated this result transmit annie reference range : /HPF. The reference range was not used to interpret this result as normal/abnormal . WBC, UA (test code = 9 See_Comment [Autom ated 5821-4) message] The system which generated this result transmit annie reference range : /HPF. The reference range was not used to interpret this result as normal/abnormal . Bacteria, UA (test Rare code = 59588-2) Mucus (test code = Rare 8247-9) Squam Epithel, UA See_Comment [Automate d (test code = 07469-3) messag e] The system which generated this result transmit annie reference range : /HPF. The reference range was not used to interpret this result as normal/abnormal . Specimen Source (test code = 2795) WESLY (test code = WESLY) French Polisher ID - tech Lab Interpretation Abnormal (test code = 31562-8) [place] [facility]inalysis [facility]/Microscopic + Reflex to Culture 2023-01-24 15:05:23 Test Item Value Reference Range Interpretation Comments Color, UA (test code Aletha = 5778-6) Clarity, UA (test Slightly Cloudy code = 5767-9) Specific [place], UA 1.001-1.035 Specifi c gravity (test code = 5811-5) perform ed on refractometer. pH, UA (test code = 5.0 5.0-8.0 5803-2) Protein, UA (test 100 mg/dL Negative A code = 60255-9) Glucose, UA (test Negative Negative code = 365) Ketones, UA (test Negative Negative code = 2514-8) Bilirubin, UA (test Negative Negative code = 49353-3) Blood, UA (test code Small Negative A = 02321-8) Nitrite, UA (test Negative Negative code = 5802-4) Leukocytes, UA (test Negative Negative code = 5799-2) Urobilinogen, UA (test code = 91012-2) RBC, UA (test code = 22 See_Comment [Autom ated 44005-4) message] The system which generated this result transmit annie reference range : /HPF. The reference range was not used to interpret this result as normal/abnormal . WBC, UA (test code = 9 See_Comment [Autom ated 5821-4) message] The system which generated this result transmit annie reference range : /HPF. The reference range was not used to interpret this result as normal/abnormal . Bacteria, UA (test Rare code = 88885-1) Mucus (test code = Rare 8247-9) Squam Epithel, UA See_Comment [Automate d (test code = 94194-1) messag e] The system which generated this result transmit annie reference range : /HPF. The reference range was not used to interpret this result as normal/abnormal . Specimen Source (test code = 2795) WESLY (test code = WESLY) French Polisher ID - tech Lab Interpretation Abnormal (test code = 85109-3) [place] [facility]URINALYSIS W/ REFLEX URINE [id number] 15:05:23 Test Item Value Reference Range Interpretation Comments COLOR (BEAKER) (test Aletha code = 470) CLARITY (BEAKER) Slightly Cloudy (test code = 469) SPECIFIC GRAVITY UA > 1.001-1.035 Specific gravity (BEAKER) (test code = perfor med on 468) refractometer. PH UA (BEAKER) (test 5.0 5.0-8.0 code = 467) PROTEIN UA (BEAKER) 100 mg/dL Negative A (test code = 464) GLUCOSE UA (BEAKER) Negative Negative (test code = 365) KETONES UA (BEAKER) Negative Negative (test code = 371) BILIRUBIN UA (BEAKER) Negative Negative (test code = 462) BLOOD UA (BEAKER) Small Negative A (test code = 461) NITRITE UA (BEAKER) Negative Negative (test code = 465) LEUKOCYTE ESTERASE UA Negative Negative (BEAKER) (test code = 466) UROBILINOGEN UA < (BEAKER) (test code = 463) RBC UA (BEAKER) (test 22 /HPF code = 519) WBC UA (BEAKER) (test 9 /HPF code = 520) BACTERIA (BEAKER) Rare (test code = 517) MUCUS (BEAKER) (test Rare code = 1574) SQUAMOUS EPITHELIAL < /HPF (BEAKER) (test code = 516) SOURCE(BEAKER) (test code = 2795) French Polisher ID - techPOCT-GLUCOSE [id number] 13:19:32 Test Item Value Reference Range Interpretation Comments POC-GLUCOSE METER 184 mg/dL 70-110 H : TESTED A T [facility] [address] (BEAKER) (test code [facility] [address] THE, = 1538) [place] [address] 384: French Polisher/Techni sarah ID = [id number] for Stephanie Campbell TROPONIN [id number] 12:35:19 Test Item Value Reference Range Interpretation Comments TROPONIN I (BEAKER) (test code = 0.04 ng/mL 0.00-0.15 397) Troponin I (TnI) levels must be interpreted in the context of the presenting symptoms and the clinical findings. Elevated TnI levels indicate myocardial damage, but are not specific for ischemic heart disease. Elevated TnI levels are seen in patients with other cardiac conditions (including myocarditis and congestive heart failure), and slight TnI elevations occur in patients with other conditions, including sepsis, renal failure, acidosis, acute neurological disease, and persistent tachyarrhythmia.French Polisher ID - [id number] ACID, VENOUS 2023-01-24 12:30:33 Test Item Value Reference Range Interpretation Comments LACTATE BLOOD VENOUS 2.53 mmol/L 0.50-2.20 H Specime n slightly (2) (BEAKER) (test hemolyzed code = 2872) French Polisher ID - [id number] PANEL, [id number] 12:06:19 Test Item Value Reference Range Interpretation Comments HEPATITIS A IGM ANTIBODY (BEAKER) Nonreactive Nonreactive (test code = 498) HEPATITIS B CORE IGM ANTIBODY Nonreactive Nonreactive (BEAKER) (test code = 645) HEPATITIS C ANTIBODY (BEAKER) Nonreactive Nonreactive (test code = 367) HEPATITIS B SURFACE ANTIGEN (2) Nonreactive Nonreactive (BEAKER) (test code = 2585) French Polisher ID - JSLIPID [id number] 11:56:19 Test Item Value Reference Range Interpretation Comments TRIGLYCERIDES (BEAKER) (test code = 379 mg/dL 540) CHOLESTEROL (BEAKER) (test code = 178 mg/dL 631) HDL CHOLESTEROL (BEAKER) (test code 14 mg/dL = 976) LDL CHOLESTEROL CALCULATED (BEAKER) 88 mg/dL (test code = 633) Triglyceride Reference Range: Low Risk <150 Borderline 150-199 High Risk 200- 499 Very High Risk >=500Cholesterol Reference Range: Low Risk <200 Borderline 200-239 High Risk >240HDL Cholesterol Reference Range: Low Risk >=60 High Risk <40LDL Cholesterol Reference Range: Optimal <100 Near Optimal 100-129 Borderline 130-159 High 160-189 Very High >=190 French Polisher ID - [id number], CHEST, 1 VIEW, NON [id number] 11:41:00Reason for exam:- >Sortness of breathShould this be performed at the bedside?->Yes [facility] : 1950 Sex: MFINAL REPORT HISTORY: Shortness of breath COMPARISON: None FINDINGS: The lungs are clear. No pleural effusions or pneumothorax. The heart shadow is normal in size. The thoracic aorta is mildly tortuous. 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 IMPRESSION: No evidence of acute cardiopulmonary disease. Signed: Cally Banuelos Verified Date/Time: 01/24/2023 11:41:40 LACTIC ACID, [id number] 10:45:25 Test Item Value Reference Range Interpretation Comments LACTATE BLOOD VENOUS 1.86 mmol/L 0.50-2.20 Specime n slightly (2) (BEAKER) (test hemolyzed code = 2872) French Polisher ID - [id number] 09:39:58 Test Item Value Reference Range Interpretation Comments TROPONIN I (BEAKER) (test code = 0.06 ng/mL 0.00-0.15 397) Troponin I (TnI) levels must be interpreted in the context of the presenting symptoms and the clinical findings. Elevated TnI levels indicate myocardial damage, but are not specific for ischemic heart disease. Elevated TnI levels are seen in patients with other cardiac conditions (including myocarditis and congestive heart failure), and slight TnI elevations occur in patients with other conditions, including sepsis, renal failure, acidosis, acute neurological disease, and persistent tachyarrhythmia.French Polisher ID - [id number] LEVEL 2023-01-24 09:13:44 Test Item Value Reference Range Interpretation Comments ACETAMINOPHEN LEVEL < ug/mL 10.0-30.0 L Specimen moderately (BEAKER) (test code = hemoly zed 344) French Polisher ID - [id number] 09:00:20 Test Item Value Reference Range Interpretation Comments SALICYLATE LEVEL (BEAKER) (test code < mg/dL 20.0-30.0 L = 764) French Polisher ID - [id number] 08:48:13 Test Item Value Reference Range Interpretation Comments AMMONIA (BEAKER) (test code = 348) 49 mol/L 12-72 French Polisher ID - [id number] 08:12:08 Test Item Value Reference Range Interpretation Comments PROTIME (BEAKER) (test code = 13.3 seconds 11.8-14.4 759) INR (BEAKER) (test code = 370) 0.97 1.20-1.50 L RECOMMENDED COUMADIN/WARFARIN INR THERAPY RANGESSTANDARD DOSE: 2.0 - 3.0 Includes: PROPHYLAXIS for venous thrombosis, systemic embolization; TREATMENT for venous thrombosis and/or pulmonary embolus.HIGH RISK: Target INR is 2.5-3.5 for patients with mechanical heart valves.[id number] 08:09:44 Test Item Value Reference Range Interpretation Comments D-DIMER QUANTITATIVE (BEAKER) > MG/L FEU <0.50 HH (test code = 671) Intended Use: The D-Dimer Assay can be used to aid in the diagnosis of Deep Vein Thrombosis (DVT) and Pulmonary Embolism Disease (PED).In patients with low pre- test probability, various studies concerning STA Liatest D-dimer test have reported that with a cutoff value of 0.50 MG/L FEU, the Negative Predictive Value (NPV) regarding the exclusion of thrombosis is within 95-100% range. [id number] 08:04:09 Test Item Value Reference Range Interpretation Comments ETHANOL (BEAKER) (test code = 400) < mg/dL <=10 French Polisher ID - [id number] drug screen, [id number] 08:02:57 Test Item Value Reference Range Interpretation Comments Barbiturate Screen Negative Negative (test code = 73932-0) Benzodiazepine Screen Negative Negative (test code = 59912-4) Cocaine (Metab.) Negative Negative Screen (test code = 3397-7) Methadone Screen (test Negative Negative code = 00181-8) Opiate Screen (test Negative Negative code = 16785-3) Cannabinoid Screen Negative Negative (test code = 95663-2) Amph/Methamph Screen Negative Negative (test code = 59886-6) Phencyclidine Screen Negative Negative (test code = 88147-8) pH, UA (test code = 6.0 5.0-8.0 5803-2) WESLY (test code = WESLY) DRUG CUTOFF CONC.Cocaine 300 ng/mL Cannabinoid 50 ng/mLBenzodiazepine 200 ng/mLBarbiturate 200 ng/mLPhencyclidine 25 ng/mLOpiate 300 ng/mLMethadone 300 ng/mLAmphetamine/ 1000 ng/mL Methamphetamine This assay provides an unconfirmed qualitative test result for the clinical management of patients in emergency situations. Chain of custody not maintained. Some xsow-aas-rxgbrpg medications, as well as adulterants, may cause inaccurate results. Clinical correlation should be applied. A more comprehensive drug screen or confirmation of a detected drug may be performed upon request.French Polisher ID - [id number] Lab Interpretation Normal (test code = 97697-3) [place] campusRapid drug screen, [id number] 08:02:57 Test Item Value Reference Range Interpretation Comments Barbiturate Screen Negative Negative (test code = 61697-8) Benzodiazepine Screen Negative Negative (test code = 68075-7) Cocaine (Metab.) Negative Negative Screen (test code = 3397-7) Methadone Screen (test Negative Negative code = 91021-9) Opiate Screen (test Negative Negative code = 75671-0) Cannabinoid Screen Negative Negative (test code = 89303-7) Amph/Methamph Screen Negative Negative (test code = 98510-6) Phencyclidine Screen Negative Negative (test code = 92148-2) pH, UA (test code = 6.0 5.0-8.0 5803-2) WESLY (test code = WESLY) DRUG CUTOFF CONC.Cocaine 300 ng/mL Cannabinoid 50 ng/mLBenzodiazepine 200 ng/mLBarbiturate 200 ng/mLPhencyclidine 25 ng/mLOpiate 300 ng/mLMethadone 300 ng/mLAmphetamine/ 1000 ng/mL Methamphetamine This assay provides an unconfirmed qualitative test result for the clinical management of patients in emergency situations. Chain of custody not maintained. Some nfgr-pce-ifsxsrz medications, as well as adulterants, may cause inaccurate results. Clinical correlation should be applied. A more comprehensive drug screen or confirmation of a detected drug may be performed upon request.French Polisher ID - [id number] Lab Interpretation Normal (test code = 06127-3) [place] campusRAPID DRUG SCREEN, [id number] 08:02:57 Test Item Value Reference Range Interpretation Comments BARBITURATE URINE (BEAKER) (test Negative Negative code = 725) BENZODIAZEPINE SCREEN URINE (BEAKER) Negative Negative (test code = 726) COCAINE (METAB.) SCREEN (BEAKER) Negative Negative (test code = 1164) METHADONE SCREEN (BEAKER) (test code Negative Negative = 1436) OPIATE SCREEN URINE (BEAKER) (test Negative Negative code = 734) CANNABINOID SCREEN URINE (BEAKER) Negative Negative (test code = 727) AMPH/METHAMPH SCREEN (BEAKER) (test Negative Negative code = 1438) PHENCYCLIDINE SCREEN URINE (BEAKER) Negative Negative (test code = 608) PH UA (BEAKER) (test code = 467) 6.0 5.0-8.0 DRUG CUTOFF CONC.Cocaine 300 ng/mL Cannabinoid 50 ng/mLBenzodiazepine 200 ng/mLBarbiturate 200 ng/mLPhencyclidine 25 ng/mLOpiate 300 ng/mLMethadone 300 ng/mLAmphetamine/ 1000 ng/mL MethamphetamineThis assay provides an unconfirmed qualitative test result for the clinical management of patients in emergency situations. Chain of custody not maintained. Some eugt-xil-nkpjowo medications, as well as adulterants, may cause inaccurate results. Clinical correlation should be applied. A more comprehensivedrug screen or confirmation of a detected drug may be performed upon request.French Polisher ID - [id number] 07:28:21 Test Item Value Reference Range Interpretation Comments HEMOGLOBIN A1C (BEAKER) (test code = 5.6 % 4.3-6.1 368) French Polisher ID - [id number] NATRIURETIC FACTOR (BNP)2023-01-24 07:08:18 Test Item Value Reference Range Interpretation Comments B-TYPE NATRIURETIC PEPTIDE (BEAKER) 13 pg/mL 0-100 (test code = 700) French Polisher ID - [id number] FUNCTION [id number] 07:03:08 Test Item Value Reference Range Interpretation Comments TOTAL PROTEIN (BEAKER) (test code = 6.2 gm/dL 6.0-8.5 770) ALBUMIN (BEAKER) (test code = 1145) 3.1 g/dL 3.5-5.0 L BILIRUBIN TOTAL (BEAKER) (test code 1.8 mg/dL 0.1-1.3 H = 377) BILIRUBIN DIRECT (BEAKER) (test 0.9 mg/dL 0.0-0.5 H code = 706) ALKALINE PHOSPHATASE (BEAKER) (test 234 U/L 30-115 H code = 346) AST (SGOT) (BEAKER) (test code = 260 U/L 5-40 H 353) ALT (SGPT) (BEAKER) (test code = 345 U/L 6-50 H 347) French Polisher ID - [id number] METABOLIC [id number] 07:02:04 Test Item Value Reference Range Interpretation Comments SODIUM (BEAKER) 136 meq/L 135-148 (test code = 381) POTASSIUM 3.7 meq/L 3.5-5.5 (BEAKER) (test code = 379) CHLORIDE (BEAKER) 104 meq/L 98-106 (test code = 382) CO2 (BEAKER) 22 meq/L 20-31 (test code = 355) BLOOD UREA 31 mg/dL 10-26 H NITROGEN (BEAKER) (test code = 354) CREATININE 1.30 mg/dL 0.50-1.20 H (BEAKER) (test code = 358) GLUCOSE RANDOM 173 mg/dL 70-110 H (BEAKER) (test code = 652) CALCIUM (BEAKER) 8.2 mg/dL 8.5-10.5 L (test code = 697) EGFR (BEAKER) 59 Interpretatio n of eGFR (test code = mL/min/1.73 values Stage De scription 1092) sq m Result G1 Lay l or high >=90 G2 Mildly decreased 60-89 G3a Mildl y to moderately 45-5 9 G3b Moderately to s everely 30-44 G4 Severl y decreased 15-29 G5 Kidney failure <15Reported eGF R is based on the CKD-EPI 2020 equation that d oes not use a race coefficientEsti mated GFR is not as accur ate as Creatinine Geri marvin in predicting glom erular filtration rate . Estimated GFR is not appl icable for dialysis patien ts French Polisher ID - [id number] W/PLT COUNT & AUTO [id number] 06:58:17 Test Item Value Reference Range Interpretation Comments WHITE BLOOD CELL COUNT (BEAKER) 10.8 K/ L 4.0-10.0 H (test code = 775) RED BLOOD CELL COUNT (BEAKER) 5.63 M/ L 4.20-5.80 (test code = 761) HEMOGLOBIN (BEAKER) (test code = 16.2 GM/DL 13.0-16.8 410) HEMATOCRIT (BEAKER) (test code = 47.5 % 36.0-50.0 411) MEAN CORPUSCULAR VOLUME (BEAKER) 84 fL 82-99 (test code = 753) MEAN CORPUSCULAR HEMOGLOBIN 28.8 pg 27.0-33.0 (BEAKER) (test code = 751) MEAN CORPUSCULAR HEMOGLOBIN CONC 34.1 GM/DL 32.0-36.0 (BEAKER) (test code = 752) RED CELL DISTRIBUTION WIDTH 13.5 % 12.0-15.0 (BEAKER) (test code = 412) PLATELET COUNT (BEAKER) (test code 57 K/CU MM 150-430 L = 756) MEAN PLATELET VOLUME (BEAKER) 12.5 fL 6.0-11.5 H (test code = 754) NUCLEATED RED BLOOD CELLS (BEAKER) 0 /100 WBC 0-0 (test code = 413) NEUTROPHILS RELATIVE PERCENT 90 % (BEAKER) (test code = 429) LYMPHOCYTES RELATIVE PERCENT 5 % (BEAKER) (test code = 430) MONOCYTES RELATIVE PERCENT 4 % (BEAKER) (test code = 431) EOSINOPHILS RELATIVE PERCENT 0 % (BEAKER) (test code = 432) BASOPHILS RELATIVE PERCENT 1 % (BEAKER) (test code = 437) NEUTROPHILS ABSOLUTE COUNT 9.71 K/ L 1.80-8.00 H (BEAKER) (test code = 670) LYMPHOCYTES ABSOLUTE COUNT 0.49 K/ L 1.48-4.50 L (BEAKER) (test code = 414) MONOCYTES ABSOLUTE COUNT (BEAKER) 0.41 K/ L 0.00-1.30 (test code = 415) EOSINOPHILS ABSOLUTE COUNT 0.01 K/ L 0.00-0.50 (BEAKER) (test code = 416) BASOPHILS ABSOLUTE COUNT (BEAKER) 0.10 K/ L 0.00-0.20 (test code = 417) IMMATURE GRANULOCYTES-RELATIVE 0.80 % 0.00-0.00 H PERCENT (BEAKER) (test code = 2801) LACTIC ACID, [id number] 06:55:44 Test Item Value Reference Range Interpretation Comments LACTATE BLOOD VENOUS 2.31 mmol/L 0.50-2.20 H Specime n markedly (2) (BEAKER) (test hemolyzed code = 2872) French Polisher ID - [id number] gas, [id number] 06:36:46 Test Item Value Reference Range Interpretation Comments pH, Arterial (test code 7.48 7.35-7.45 H = 2744-1) pCO2, Arterial (test 32 See_Comment L [Autom ated message] code = 2019-03) The system [employer] generated this result transmit annie reference range : 35 - 45 mm Hg. The reference range was not used to interpret this result as normal/abnormal . pO2, Arterial (test 76 See_Comment L [Automa annie message] code = 2703-7) The system [employer] generated this result transmit annie reference range : 80 - 90 mm Hg. The reference range was not used to interpret this result as normal/abnormal . O2 Sat, Arterial (test 96.2 % 96.0-97.0 code = 2708-6) HCO3, Arterial (test 23 mmol/L code = 1960-4) Base Excess, Arterial 0.6 mmol/L -2.0-3.0 (test code = 1925-7) Patient Temperature 37.0 (test code = 8310-5) FIO2 (test code = 1819) 60.0 Lab Interpretation Abnormal (test code = 40638-3) [place] [facility] [id number] 06:36:46 Test Item Value Reference Range Interpretation Comments pH, Arterial (test code 7.48 7.35-7.45 H = 2744-1) pCO2, Arterial (test 32 See_Comment L [Autom ated message] code = 2019) The system [employer] generated this result transmit annie reference range : 35 - 45 mm Hg. The reference range was not used to interpret this result as normal/abnormal . pO2, Arterial (test 76 See_Comment L [Automa annie message] code = 2703-7) The system [facility] generated this result transmit annie reference range : 80 - 90 mm Hg. The reference range was not used to interpret this result as normal/abnormal . O2 Sat, Arterial (test 96.2 % 96.0-97.0 code = 2708-6) HCO3, Arterial (test 23 mmol/L 21-29 code = 1960-4) Base Excess, Arterial 0.6 mmol/L -2.0-3.0 (test code = 1925-7) Patient Temperature 37.0 (test code = 8310-5) FIO2 (test code = 1819) 60.0 Lab Interpretation Abnormal (test code = 26301-9) [place] [facility], [id number] 06:36:46 Test Item Value Reference Range Interpretation Comments PH ARTERIAL (BEAKER) (test code = 7.48 7.35-7.45 H 383) PCO2 ARTERIAL (BEAKER) (test code 32 mm Hg 35-45 L = 384) PO2 ARTERIAL (BEAKER) (test code = 76 mm Hg 80-90 L 385) O2 SATURATION ARTERIAL (BEAKER) 96.2 % 96.0-97.0 (test code = 386) HCO3 ARTERIAL (BEAKER) (test code 23 mmol/L -29 = 388) BASE EXCESS ARTERIAL (BEAKER) 0.6 mmol/L -2.0-3.0 (test code = 387) PATIENT TEMPERATURE (BEAKER) (test 37.0 code = 1818) FIO2 (BEAKER) (test code = 1819) 60.0 POCT-GLUCOSE [id number] 05:59:39 Test Item Value Reference Range Interpretation Comments POC-GLUCOSE METER 188 mg/dL 70-110 H : Notified RN/MD: TESTED (BEAKER) (test code AT [facility] [address] [facility] = 1538) [facility] [address]: French Polisher/Techni sarah ID = [id number] for Mari Montaño Notes Date/Time Note Provider Source 2023-04-11 15:07:00-00:00 [id number] [facility] [address], [place] [address] PATIENT NAME: GONZALO MASON ADMIT DATE: 04/11 ACCOUNT NO: [id number] ROOM NO: Y.324 AGE: 73 REPORT TYPE: OPERATIVE REPORT SEX: M ADMITTING PHYSICIAN:Jeremiah Chamberlain MD ATTENDING PHYSICIAN:Jeremiah Chamberlain MD OPERATION DATE: 04/11/2023 PREOPERATIVE DIAGNOSIS: Degenerative joint disea se, right knee. POSTOPERATIVE DIAGNOSIS: Degenerative joint dise ase, right knee. PROCEDURE: Right total knee arthroplasty. SURGEON: Jeremiah Chamberlain MD SYRUP MIXER: JOSELITO Guy ANESTHESIA: Spinal anesthesia. ESTIMATED BLOOD LOSS: 75 mL. DRAINS: None. SPECIMENS: None. COMPLICATIONS: None. IMPLANTS: DePuy PFC Sigma si ze 5 posterior stabilized femoral component, size 5 fixed bearing tibial tray, 15 mm posterior stabi lized tibial polyethylene insert, and 41 mm oval patella. FINDINGS: Severe arthritis with mild varus defor mity with areas of eburnation of bone in the medial compartment, particularly the anterior medial tibia, distal medial femur, and an area of grade IV cho ndromalacia about 12 mm in diameter, distal lateral femoral condyle with di ffuse extensive grade IV chondromalacia at the base of the trochlea. INDICATIONS FOR SURGERY: Right knee pain and arthritis. Treatment options were discussed with the patient who voiced understand ing of the options and the planned procedure. The patient voiced understand ing of the risk of infection, damage to nerves or blood vessels with l oss of function, mechanical failure or loosening with need for revision surgery, blood clots possibly going to the lungs, possibly resulting in . These issues were discussed with the patient in the office prior to surgery. No warranty or g uarantee as to the outcome of the surgery was made. PROCEDURE IN DETAIL: The patient was identified in the preoperative holding PATIENT NAME: GONZALO MASON [id number] area. All questions were ans wered. The patient's surgical site was appropriately marked under the patient's d irection and with the patient's consent. The patient was taken to the operating r oom where a timeout was performed prior to induction of anesthesia, ensuring that the patient was properly identified as the proper patient. After establishment of anesthesia, the right leg was prepped and draped sterilely. A surgical timeout was then initiated by the surgeon and performed under the direction of the c irculating nurse. It was confirmed that the marking of the surgical site was visible after prepping and draping of the extremity, that it was the proper patient, that x-rays with the patients name on it were displayed, that all necessary instruments were a vailable and open and all potentially necessary implants were available. I t was also confirmed that the instruments had been properly sterilized. Each m ember of the surgical team introduced themselves and de scribed their role in the surgical procedure. After the surgical timeout was completed, surgery was begun. With the knee in a flexed position an an terior longitudinal incision extending from approximately 6 cm proximal to the proximal pole of the patella, slightly medial to the midline, was e xtended distally for a length of approximately 15 to 20 cm to the region of the medial aspect of the tibial tubercle. The incision was carried through the skin and subcutaneous ti ssues and hemostasis was then obtained using electrocautery. A sterile tourniq uet was available, but the surgery was initially perfor med without a tourniquet. The tourniquet was only to be placed if there was excessive bleeding. A mid vastus approach was then performed by dividing the fibers of the vastus m edialis oblique one fingerbreadth proximal to the proximal pole of t he patella for a distance of approximately 6 cm. The inci monty was then carried along the medial capsule along the medial border of the patella leaving an adeq uate cuff of tissue on the patella for later closure. The incision continued down along the medial border of the patellar tendon along the tibial tubercle. Hemostasis was again obtained. The anterior portion of the medial meniscus was excised using scalpel. The knee was then extended and release of the candice p MCL of the proximal medial tibia was performed using electrocautery under dir ect visualization as appropriate based on the patient's deformity. Hemostasis was again obtained with the knee in extension. Synovium was then excised from the an terior distal femur to allow referencing of the anterior tibial cortex for sizing of the femoral implant. The knee was then flexed and retractors were placed beneath the medial and lateral collateral ligament. A small portion of the fat pad was excised allow ing better exposure of the anterolateral portion of the tibia. The anterior portion of the lateral meniscus was then excised to allow placement of the femor al sizing guide beneath the femur. The femoral canal was then entered at the superomedial border of the intercondylar notch above the PCL. The femoral c anal was then suctioned, removing marrow fat to reduce the risk for fat e mbolization and the intramedullary cutting guide was placed and pinned for a 10-mm resection. With flexion contracture of greater than 10 degrees i n a knee without valgus deformity, an additional 2-m m resection was performed. Distal femur was cut in 6 degrees of valgus. The distal femur was carefully cut using an oscillating saw under direct visualization. The femoral sizing guide was then used to size the distal femur and the appropr iate size 4-in-1 cutting block was chosen. After the 4-in-1 cutting block was pinned into place, the anterior femoral condyle was removed with careful protection of the anterior femur and surrounding soft tissues. The anterior chamfer cut was also made. It was verified that Hohmann retractors were adequately protecting th e MCL and LCL as the posterior femoral PATIENT NAME: GONZALO MASON [id number] condyles were cut and the posterior chamfer cut was made. The 4-in-1 femoral cutting block was then removed. Marginal osteoph ytes on the femur were then removed. Attention was turned to the proximal tibia where the remaining portion of the medial meniscus was excised using electrocautery as was the remaining portion of the lateral meniscus. The anterior cruciate liga ment was cut with electrocautery. Hohmann retr actors were placed medial and lateral and the tibial cutting guide was placed to perform a 10-mm resection from the less-worn tibial plateau. The tibial cutting guide was pinned in place with 2 smooth pins. A third retractor was placed protecting the LCL as the proximal tibia was resected. Care was taken to resect up to , but not through the posterior tibial cortex to protect the posterior neurovascular st ructures. The tibial cutting guide was then removed and the wafer of bone res ected from the proximal tibia was removed using electrocautery and a r ongeur. Any remaining bone was removed using a three quarter-inch osteotome. Posterior femoral osteophytes were also removed using a three quarte r-inch osteotome followed by rongeur. Spacer blocks were then used to confirm th at the flexion and extension gaps were minimum of 8 to 10 mm in thickness and were well balanced. At tention was then turned to preparing the distal femur for the posterior-sta bilized implant. The Greer retractor was placed protect ing the proximal tibia and the femoral trial without the notch was placed on the distal femur and was centered appropriately in the notch that was marked to allow the notch cutting guide to be appropriately positioned in the medial and lateral width. The cutting guide was then pinned and the notch resection was performed using an t hin saw blade under direct visualization taking care not to undercut the fe moral condyles. The cutting guide was removed as was the block of liliana ne that was cut from the intercondylar notch. Attention was then turned to the tibia and the proximal tibia was exposed using 2 Hohmann retractors. The baseplate for the tibia of the appropriate size that obtained the greatest amount of cortical contact without overhang was positioned with appropriate rotational alignment, g enerally aligned with the medial third of the tibial tubercle. Afte r the tibial baseplate guide was pinned into place, the round S-ROM punch was used to remove bone fr om the area where the tibial stem would be implanted and the plug of bone removed from the proximal tibia was immediately impacted into the femoral ca nal to plug the distal femur to reduce intraoperative and postopera tive blood loss. The tibia was then prepared for the stem and keel of the tibial implant. The femoral trial was then placed and a trial reduction was performed. It was co nfirmed that the flexion and extension gaps were well balanced. If they were no t, the femoral component was downsized or additional bone was removed from the distal femur as appropriate to achieve excellent balance. The rotational alignment of t he tibial component was again confirmed to be appropriate or was adjusted as needed. The lugs for the pegs on the femoral implant were drilled and the knee wa s brought into extension for preparation of the patella. The patella was everted and ____ were used to hold the patella in an everted manner. Synovium was t hen removed from the distal quadriceps tendon insertion to the proxi mal pole of patella to lessen the risk for postoperative patellar clunk syndrome. The a ppropriate thickness was then resected from the undersurface of the pa tella, ranging from 8 to 11.5 mm based on the diameter of the alvarez lar component. The 3 peg holes were then drilled and a trial patellar implant was placed to ensure sa tisfactory tracking of the patella and to protect the p atella during cementation of the femoral and tibial implants. PATIENT NAME: GONZALO MASON [id number] The knee was then brought into flexion a nd the patella was retracted laterally without eversion. A small step drill was used to drill any sclerotic bone to facilitate cement interdigitation. The distal fe mur and proximal tibia were prepared for cementation using pulsatile lavage to remove blood and fatty tissues to facilitate cement interdigitation. Suction was placed in the proximal tibia, which was packed with laparotomy sponge w hile 2 batches of CMW cement were mixed along with 1 gm of vancomycin . When the cement was slightly doughy, the preheated tibial implant was complet nicko dried and cement was placed on the undersurface of the tibia an d around the tibial stem and was also finger-packed into the proximal tibia. Care was taken to pack the cement into the trabecular bone of the proximal tibia to minimize l ipid extrusion during cementation. The tibial implant was then impacted into pl shlomo and excess cement was removed. The Greer retractor was placed t o hold the tibial implant flush with the tibia while the femoral implant was cemented. The distal fem ur was again cleaned with a laparotomy sponge and cement was placed on the distal surface of the femur and the undersurface of the femoral componen t and the femoral implant was impacted into place. Excess cement wa s removed. The trial tibial insert was then placed. The knee was then brought into full extension an d once again it was verified that flexion and extension gaps were well balanc ed. If necessary, additional cement was removed from the margins of t he femoral component and the posterior aspect of the femur. The knee was maintained in extension as the patellar implant was cemented. The kn ee was then taken through a range of motion and the thickness of the final tibia l insert was then chosen and the tibial polyethylene implant was opened. The periarticular injection was then performed using 0.5% ropivacaine with epinephrine. Toradol was added to the injection if the patient's GFR was greater than 60 and if not 10 mg of morphine sulfate was added. As the cement was acosta dening, the knee was soaked with dilute Betadine for 90 seconds or more. Once the cement had hardened , the knee was thoroughly irrigated using pulsatile lavage with up to 3 li ters of normal saline. Once again, the posterior aspect of the knee was checked and any cement or debris was removed. The tibial polyethy hellen insert was then locked into place. The capsule was then repaired using #1 Vicryl and #2 Quill. Subcutaneous tissues were meticulously closed in layer s using 0 and 2-0 Vicryl. The skin was closed using 3-0 nylon. A sterile compression bandage was placed. The patient was awoken by the anesthesia team and taken to the post anesth esia care unit in stable condition. POSTOPERATIVE PLAN: Weightbearing and range of m otion as tolerated. The skilled assistance of JOSELITO Guy, was necessary during this surgical procedure. She assisted with ev zaida aspect of the operation including, but not limited to, proper and safe positioning of the patient, obtaining adequate surgical exposure, manipulation of surgical instruments, the delicate task of the continual process of hemostasis duri ng the procedure. She is responsible for proper and safe manipulation of the surgical leg to allow visualization for me during surgery. Her meticulous multi-layer closure of the surgical wound closure is es sential to proper wound healing and the reduction of post-operative infections and drainage. Her assi stance allowed me to perform the most sensitive and techn ical portions of this operation using 2 hands, thus enhancing patient safety. This would not be poss ible without the help of a skilled res habilitation assistant familiar with the proc edure and capable of safely performing the aforementioned tasks. Our facility i s not a teaching hospital and as such, PATIENT NAME: GONZALO MASON [id number] no surgical residents or interns were available to assist. Dictated By: Jeremiah Chamberlain MD Date Dictated: 04/11/2023 15:07:35 Date Transcribed: 04/11/2023 20:09:31 GWS/REK/SAT Receipt ID: [id number] Authenticated by Jeremiah Chamberlain MD On 08:05:56 AM at 0805 PATIENT NAME: GONZALO MASON [id number] 13:21:00-00:00 [facility] Brief Op Note REPORT#:[id number] REPORT STATUS: Signed DATE:04/11/23 TIME: 1321 PATIENT: GONZALO MASON UNIT #: [id number] ROOM/BED: : 51 AGE: 73 SEX: M ATTEND: Kali Chamberlain MD ADM AUTHOR: Jeremiah Chamberlain MD * ALL edits or amendments must be made on the el ClipCard/computer document * Op/Inv Proc Note - Brief Pre-procedure diagnosis: djd r knee Post-procedure diagnosis: same as pre procedure dx Procedures performed: r tka Primary Surgeon: rigo Form Raiser(s): cornelio Anesthesia: spinal anesthetic Findings: djd Complications: none Estimated blood loss in ml's: 75 Specimens removed/altered: none at 1322 RPT #:[id number] END OF REPORT
[2023-05-11] MEDS ORDERED: MORPHINE 4 MG/ML SYR ONE (09:14)
--- NOTE | 2023-05-11 09:22 | RAD REPORT ---
EXAM DESCRIPTION: CT - Thorax Wo Con - 05/11/2023 8:58 am CLINICAL HISTORY: Chest pain status post fall COMPARISON December 2022 TECHNIQUE: Computed axial tomography of the chest was obtained. Contrast was not requested. All CT scans are performed using dose optimization technique as appropriate and may include automated exposure control or mA/KV adjustment according to patient size. FINDINGS: The evaluation of mediastinum, nicole and vessels is limited secondary to lack of IV contras t administration. Small left pleural effusion. Mild areas of subsegmental atelectasis within the lung bases. No pulmonary contusion No mediastinal hematoma. Coronary arterial calcifications are present. The entire left clavicle is only partially included in the field of view. Old ununited fracture visua lized IMPRESSION: No acute abnormality is displayed
--- NOTE | 2023-05-11 09:28 | EDPHYS ---
Physician Documentation [facility] Name: Blake Nixon Age: 73 yrs Sex: Male : 1950 Arrival Date: 05/11/2023 Time: 08:29 Bed 7 Private MD: ED Physician Nacho Cisse HPI: 05/11 09:15 This 73 yrs old Male presents to ER via Ambulatory with complaints of Broken clavicle, rt Back Pain. 09:15 Patient was seen in the ED about 3 days ago for a fall in which she was diagnosed with rt a clavicle fracture. Patient states he has pain to the back, scapular region since then. It is improved with hydrocodone which she has taken from his knee surgery, but, he is running out of his pain medications soon. States that the pain did worsen today. He does have pain with deep inspiration, reports slight difficulty breathing. It does improve when he lays down, worsens when he gets up. Denies other acute complaints at this time, symptoms are moderate severity, aching in nature, nonradiating, no other aggravating or alleviating factors.. Historical: - Allergies: 08:49 No Known Allergies; iw - PMHx: 08:49 CVA; Hyperlipidemia; Hypertension; iw - PSHx: 08:49 Cholecystectomy; knee; Shoulder; iw - Immunization history:: Adult Immunizations up to date. - Social history:: Smoking status: Patient denies any tobacco usage or history of. ROS: 09:15 Constitutional: Negative for fever, chills, and weight loss, Cardiovascular: ' rt Abdomen/GI: Negative for abdominal pain, nausea, vomiting, diarrhea, and constipation, MS/Extremity: Negative for injury and deformity, Skin: Negative for injury, rash, and discoloration. 09:15 Back: Positive for pain at rest, pain with movement. Exam: 09:15 Constitutional: This is a well developed, well nourished patient who is awake, alert, rt and in no acute distress. Head/Face: Normocephalic, atraumatic. Chest/axilla: Normal chest wall appearance and motion. Nontender with no deformity. No lesions are appreciated. Cardiovascular: Regular rate and rhythm with a normal S1 and S2. No gallops, murmurs, or rubs. Normal PMI, no JVD. No pulse deficits. Respiratory: Lungs have equal breath sounds bilaterally, clear to auscultation and percussion. No rales, rhonchi or wheezes noted. No increased work of breathing, no retractions or nasal flaring. Abdomen/GI: Soft, non-tender, with normal bowel sounds. No distension or tympany. No guarding or rebound. No evidence of tenderness throughout. 09:15 Back: Tenderness inferior and medial to the left scapula, no deformities noted, no midline tenderness. 09:15 Musculoskeletal/extremity: Weakness noted on the left arm from prior stroke, no tenderness over clavicle, no deformities no. Vital Signs: 08:49 Temp 97.6; Weight 99.34 kg; Height 6 ft. 4 in. ; iw 09:48 BP 144 / 86; Pulse 76; Resp 18; Temp 97.8(O); Pulse Ox 100% on R/A; Weight 95.25 kg; ld1 Height 6 ft. 4 in. ; Pain 7/10; 09:48 Body Mass Index 25.56 (95.25 kg, 193.04 cm) ld1 09:48 Pain Scale: Adult ld1 MDM: 08:42 Patient medically screened. rt 09:30 Differential diagnosis: Sure, pneumothorax, pulmonary contusion, scapular fracture, rt muscle spasm. Data reviewed: vital signs, nurses notes, radiologic studies. I considered the following discharge prescriptions or medication management in the emergency department Medications were administered in the Emergency Department. See MAR. Independent interpretation of the following test(s) in the Emergency Department CT Scan: My interpretation is No pneumothorax seen on interpretation of the CT scan images. Test considered but Not performed: MRI: No new neurodeficits, MRI not indicate. Counseling: I had a detailed discussion with the patient and/or guardian regarding the historical points, exam findings, and any diagnostic results supporting the discharge/admit diagnosis, the presence of at least one elevated blood pressure reading (>120/80) during this emergency department visit, radiology results, the need for outpatient follow up. Response to treatment: the patient's symptoms have markedly improved after treatment. 05/11 08:48 Order name: CT Chest Wo Con; Complete Time: 09:23 rt Administered Medications: 09:06 Drug: morphine IM 4 mg Route: IM; Site: left deltoid; ko1 Disposition Summary: 05/11/23 09:28 Discharge Ordered Location: Home rt Problem: new rt Symptoms: have improved rt Condition: Stable rt Diagnosis - Thoracic back pain rt Followup: rt - With: Private Physician - When: 2 - 3 days - Reason: Discharge Instructions: - Discharge Summary Sheet rt - Acute Back Pain, Adult rt Forms: - Medication Reconciliation Form rt - Thank You Letter rt - Antibiotic Education rt - Prescription Opioid Use rt - Patient Portal Instructions rt - Leadership Thank You Letter rt Prescriptions: - acetaminophen-codeine 300-30 mg Oral tablet - take 1 tablet by ORAL route every 6 hours as needed for pain; 18 tablet; rt Refills: 0, Product Selection Permitted - Cyclobenzaprine 10 mg Oral Tablet - take 1 tablet by ORAL route every 8 hours As needed; 18 tablet; Refills: 0, rt Product Selection Permitted Signatures: Dispatcher [employer] Mirna Whitmore, RN Gloria Logan RN RN ld1 Gilma Prieto RN RN ko1 Nacho Cisse MD MD rt
--- NOTE | 2023-05-11 09:28 | ER ---
Nurse's Notes [facility] Name: Blake Nixon Age: 73 yrs Sex: Male : 1950 Arrival Date: 05/11/2023 Time: 08:29 Bed 7 Private MD: Diagnosis: Thoracic back pain Presentation: 05/11 08:46 Chief complaint: Patient states: fell the other day and broke his left clavicle, he was iw seen here yesterday and they didn't prescribe him any pain meds. Coronavirus screen: At this time, the client does not indicate any symptoms associated with coronavirus-19. Ebola Screen: Patient negative for fever greater than or equal to 101.5 degrees Fahrenheit, and additional compatible Ebola Virus Disease symptoms Patient denies exposure to infectious person. Patient denies travel to an Ebola-affected area in the 21 days before illness onset. No symptoms or risks identified at this time. Initial Sepsis Screen: Does the patient meet any 2 criteria? No. Patient's initial sepsis screen is negative. Does the patient have a suspected source of infection? No. Patient's initial sepsis screen is negative. Risk Assessment: Do you want to hurt yourself or someone else? Patient reports no desire to harm self or others. Onset of symptoms was May 11, 2023. 08:46 Method Of Arrival: Ambulatory iw 08:46 Acuity: GISSEL 4 iw Triage Assessment: 09:50 General: Appears in no apparent distress. comfortable, Behavior is calm, cooperative, ld1 appropriate for age. Pain: Historical: - Allergies: 08:49 No Known Allergies; iw - PMHx: 08:49 CVA; Hyperlipidemia; Hypertension; iw - PSHx: 08:49 Cholecystectomy; knee; Shoulder; iw - Immunization history:: Adult Immunizations up to date. - Social history:: Smoking status: Patient denies any tobacco usage or history of. Screenin:48 [facility] ED Fall Risk Assessment (Adult) History of falling in the last 3 months, ld1 including since admission No falls in past 3 months (0 pts). Abuse screen: Denies threats or abuse. Denies injuries from another. Nutritional screening: No deficits noted. Tuberculosis screening: No symptoms or risk factors identified. Assessment: 09:48 Reassessment: See triage assessmnet. ld1 09:48 Reassessment: Patient appears in no apparent distress at this time. No changes from ld1 previously documented assessment. Patient and/or family updated on plan of care and expected duration. Pain level reassessed. Vital Signs: 08:49 Temp 97.6; Weight 99.34 kg; Height 6 ft. 4 in. ; iw 09:48 BP 144 / 86; Pulse 76; Resp 18; Temp 97.8(O); Pulse Ox 100% on R/A; Weight 95.25 kg; ld1 Height 6 ft. 4 in. ; Pain 7/10; 09:48 Body Mass Index 25.56 (95.25 kg, 193.04 cm) ld1 09:48 Pain Scale: Adult ld1 ED Course: 08:32 Patient arrived in ED. ts1 08:32 Nacho Cisse MD is Attending Physician. rt 08:49 Triage completed. iw 08:49 Arm band placed on. iw 09:00 CT Chest Wo Con In Process Unspecified. EDMS 09:01 Gilma Prieto RN is Primary Nurse. ko1 09:48 Patient has correct armband on for positive identification. Placed in gown. Bed in low ld1 position. Call light in reach. Side rails up X2. Pulse ox on. NIBP on. Door closed. Noise minimized. Warm blanket given. 09:48 No provider procedures requiring assistance completed. Patient did not have IV access ld1 during this emergency room visit. Administered Medications: 09:06 Drug: morphine IM 4 mg Route: IM; Site: left deltoid; ko1 Medication: 09:48 VIS not applicable for this client. ld1 Outcome: 09:28 Discharge ordered by . rt 09:48 Discharged to home ambulatory. ld1 09:48 Condition: stable 09:48 Discharge instructions given to patient, Instructed on discharge instructions, follow up and referral plans. medication usage, Demonstrated understanding of instructions, follow-up care, medications, Prescriptions given X 1. 09:50 Patient left the ED. ld1 Signatures: Dispatcher [employer] EDMS Mirna Alcala RN RN iw Gloria Boland RN RN ld1 Gilma Prieto, RN RN ko1 Nacho Cisse MD MD rt Shelly Warner PAS PAS ts1
[2023-05-11 10:05] VITALS: BP 144/86; TEMP 97.8; O2SAT 100
== END 2023-05-11 09:50 | disposition home or self-care (01) ==
LOC: ER 08:29
DX: M54.9 Dorsalgia, unspecified (principal)
CPT/HCPCS: 71250; 96372; 99284

== ENCOUNTER 2023-05-18 09:02 | Emergency (ER) | payer OTHER ==
--- OUTSIDE RECORDS SUMMARY | 2023-05-18 09:10 | XMS REPORT | Continuity of Care Document ---
:1950 Author Organization [facility] t Address [address] [facility] [address] [place] [address] Care Team Providers Name Role Phone Clarisa Attending Clinician Unavailable Jeremiah Chamberlain Attending Clinician Unavailable Dipti Attending Clinician Unavailable Lydia Calle MD Attending Clinician Jermaine Houston MD Attending Clinician Franklin De Santiago MD Attending Clinician Roxie Gomez MD Attending Clinician FRANKLIN DE SANTIAGO Attending Clinician Unavailable Clarisa Admitting Clinician Unavailable Jeremiah Chamberlain Admitting Clinician Unavailable Dipti Admitting Clinician Unavailable ROXIE GOMEZ Admitting Clinician Unavailable LYDIA CALLE Admitting Clinician Unavailable Payers Payer Name Policy Type Policy Number Effective Date Expiration Date S ource MEDICARE [place]: [id number] 2016 [place] 00:00:00 Problems Condition Condition Condition Status Onset Resolution Last Treating Co mments Source Name Details Category Date Date Treatment Clinician Date Sepsis Sepsis Disease [facility] Acute Acute Disease Recurre [facility] resp[facility] respirator nce 5-29 Yesica kes y failure y failure 00:00: [facility] trudy with with 00 Center hypoxia hypoxia Allergies, Adverse Reactions, Alerts Allergy Allergy Status Severity Reaction(s) Onset Inactive Treating Comm ents Source Name Type Date Date Clinician No Known DA [facility] [place] [facility] 00[facility] No Known DA Active [facility] Allergie 7 [place] s 00:00: [place] [address] [facility] No Known DA Active U [facility] Contrast 1 [place] Allergie 00:00: Orthope s 00 dic Hospita [facility] No Known DA Active [facility] Drug 08-31 [place] Allergie 00:[facility]: [facility]ope s 00 dic [facility] No Known DA Active U [facility] Food 08-31 [place] Allergie 00:00: [facility]ope s 00 dic [facility]osp[facility] No Known DA Active U 2006-0 [facility] Other 08-31 [place] Allergie 00:00: [facility]ope [facility] 00 dic [facility] NO KNOWN Allergy Active [facility] Social History Social Habit Start Date Stop Date Quantity Comments Source History [facility]-Med [facility] Tobacco use and 2023-01-24 2023-01-[address] [facility] exposure [facility]00 00:00:00 non-user Medical Center History [facility] 2023-01-24 2023-01-[address] [facility] Housing Unable to 00:00:00 00:00:00 Medical Center Pay History [facility] 2023-01-24 2023-01-[address] [facility] Housing Places 00:00:00 00:00:00 Medical Ce nter Lived History [facility] 2023-01-24 2023-01-[address] [facility] Housing Homeless 00:00:00 00:00:00 Medical Center Last Year Alcohol intake 2023-01-24 2023-01-[address] [facility] 00:00:00 00:00:00 non-drinker Medical Cente r (finding) History [facility] 2023-01-24 2023-01-[address] [facility] Transport Med 00:00:00 00:00:[address] Sex Assigned At [address] Yesica kes 00:00:00 00:00:00 Medical Center Smoking Status Start Date Stop Date Source Never smoked tobacco [facility] Medications Ordered Filled Start Stop Current Ordering Indication Dosage Frequency Signature Comments Components Source Medication Medication Date Date Medication? Clinician (SIG) Name Name apixaban 2022- No 5mg Q.5D Take [address] (ELIQUIS) 5 6-11 02-03 tablet (5 Yesica kes mg Tab 00:00: 23:59 mg total) Medic al tablet 00 :00 by mouth Center in the morning and 1 tablet (5 mg total) before bedtime. Do all this for 30 days. apixaban 2022-2022- No 5mg Q.5D Take [address] (ELIQUIS) 5 6-03 -03 tablet (5 Yesica kes mg Tab 00:00: 23:59 mg total) Medic al tablet 00 :00 by mouth Center in the morning and 1 tablet (5 mg total) before bedtime. Do all this for 30 days. apixaban 2022- No 5mg Q.5D Take [address] (ELIQUIS) 5 6-03 -03 tablet (5 Yesica kes mg Tab 00:00: 23:59 mg total) Medic al tablet 00 :00 by mouth Center in the morning and 1 tablet (5 mg total) before bedtime. Do all this for 30 days. zinc oxide 2022- No 1{appli Q.5D Apply [address] [facility] 16 % Oint 01-29 cation} applicatio [facility] 00:00: 23:59 n Medical 00 :00 topically Center in the morning and 1 applicatio n before bedtime. Do all this for 10 days. zinc oxide 2022- No 1{appli Q.5D Apply [address] [facility] 16 % Oint 01-29 cation} applicatio [facility] 00:00: 23:59 n Medical 00 :00 topically Center in the morning and 1 applicatio n before bedtime. Do all this for 10 days. zinc oxide 2022- No 1{appli Q.5D Apply [address] [facility] 16 % Oint 01-29 cation} applicatio [facility] 00:00: 23:59 n Medical 00 :00 topically Center in the morning and 1 applicatio n before bedtime. Do all this for 10 days. senna-docus 2022- No 1{tbl} Take [address] ate 6-03 06-08 tablet by [facility] (SENOKOT S) 00:00: 23:59 mouth Medi trudy 8.6-50 mg 00 :00 every Center per tablet night as needed for Constipati on for up to 5 days. amoxicillin 2022- No 1{tbl} Q.5D Take [address] -clavulanat 6-03 06-08 tablet by Yesica kes e 00:00: 23:59 mouth in Medical (AUGMENTIN) 00 :00 the Center 875-125 mg morning per tablet and 1 tablet before bedtime. Do all this for 5 days. senna-docus 2022- No 1{tbl} Take [address] ate 6-03 06-08 tablet by [employer] (SENOKOT S) 00:00: 23:59 mouth Medi trudy 8.6-50 mg 00 :00 every Center per tablet night as needed for Constipati on for up to 5 days. amoxicillin 2022- No 1{tbl} Q.5D Take [address] -clavulanat 6-03 06-08 tablet by Yesica kes e 00:00: 23:59 mouth in Medical (AUGMENTIN) 00 :00 the Center 875-125 mg morning per tablet and 1 tablet before bedtime. Do all this for 5 days. senna-docus 2022- No 1{tbl} Take [address] ate 6-03 06-08 tablet by [employer] (SENOKOT S) 00:00: 23:59 mouth Medi trudy 8.6-50 mg 00 :00 every Center per tablet night as needed for Constipati on for up to 5 days. amoxicillin 2022- No 1{tbl} Q.5D Take [address] -clavulanat 6-03 06-08 tablet by Yesica kes e 00:00: 23:59 mouth in Medical (AUGMENTIN) [...] cm Heart rate 2023-01-29 08:50:00 89 /min [facility] Respiratory rate 2023-01-29 08:50:00 20 /min [facility] Oxygen saturation in 2023-01-29 08:50:00 97 /min [facility] Arterial blood by Medical Ce nter Pulse oximetry Body temperature 2023-01-29 07:36:07 36.33 Ansley [facility] Systolic blood 2023-01-29 07:35:50 114 mm[Hg] [facility] Diastolic blood 2023-01-29 07:35:50 75 mm[Hg] [facility] Body weight 2023-01-26 05:00:00 113.218 kg [facility] BMI 2023-01-26 05:00:00 32.93 kg/m2 [facility] Body height 2023-01-24 05:45:00 185.4 cm [facility] Procedures Procedure Date / Time Performing Clinician Source Performed CBC W/PLT COUNT & AUTO 2023-01-29 05:28:00 Franklin De Santiago [facility] COMPREHENSIVE METABOLIC 2023-01-29 05:28:00 MarianoFranklin [facility] CBC W/PLT COUNT & AUTO 2023-01-29 05:28:00 Franklin De Santiago [facility] POCT-GLUCOSE METER 2023-01-29 05:27:00 Franklin De Santiago [facility] POCT-GLUCOSE METER 2023-01-28 20:33:00 Franklin De Santiago [facility] POCT-GLUCOSE METER 2023-01-28 16:12:00 [facility] PO[facility]SE [facility] 2023-01-28 12:06:00 Marianojefferson [facility] CBC W/PLT COUNT & AUTO 2023-01-28 05:07:[address] [facility] COMPREHENSIVE METABOLIC 2023-01-28 05:07:[address] [facility] CBC W/PLT COUNT & AUTO 2023-01-28 05:07:[address] [facility] POCT-GLUCOSE METER 2023-01-27 21:12:00 Marianojefferson [facility] POCT-GLUCOSE METER 2023-01-27 16:48:00 Segundolacie [facility] AMMONIA 2023-01-27 16:01:[address] [facility] HEREDITARY HEMOCHROMATOSIS 2023-01-27 16:01:00 Amelia Albanazeb Jacob [facility] XR CHEST 1 VIEW PORTABLE / 2023-01-27 13:38:[address] [facility] POCT-GLUCOSE METER 2023-01-27 12:47:00 Segundolacie [facility] POCT-GLUCOSE METER 2023-01-27 05:41:00 Segundolacie [facility] BASIC METABOLIC PANEL 2023-01-27 05:35:00 Sherry Pimentel [facility] CBC W/PLT COUNT & AUTO 2023-01-27 05:35:00 Sherry Pimentel [facility] HEPATIC FUNCTION PANEL 2023-01-27 05:35:00 Segundolacie [facility] CBC W/PLT COUNT & AUTO 2023-01-27 05:35:00 Sherry Pimentel [facility] COVID ANTIGEN 2023-01-26 22:10:00 Ruthy Erickson [facility] CT CHEST WITHOUT IV 2023-01-26 18:42:00 Leny Warner [facility] POCT-GLUCOSE METER 2023-01-26 16:33:00 Mariano [facility] POCT-GLUCOSE METER 2023-01-26 12:28:00 [facility] MR ABDOMEN WITHOUT IV 2023-01-26 09:27:[address] [facility] POCT-GLUCOSE METER 2023-01-26 06:26:00 [facility] BASIC METABOLIC PANEL 2023-01-26 04:30:00 Sherry Pimentel [facility] CBC W/PLT COUNT & AUTO 2023-01-26 04:30:00 Sherry Pimentel [facility] HEPATIC FUNCTION PANEL 2023-01-26 04:30:00 [facility] CBC W/PLT COUNT & AUTO 2023-01-26 04:30:00 Sherry Pimentel [facility] POCT-GLUCOSE METER 2023-01-26 01:29[facility]00 [facility]SE [facility] 2023-01-25 21:37:00 [facility] POCT-GLUCOSE METER 2023-01-25 18:25:00 [facility] ACTIN (SMOOTH MUSCLE) 2023-01-25 18:22:00 Aissatou Patelmad [facility] ANTIBODY, IGG [facility] HC LAB FLUORESC AB SCRN EA 2023-01-25 18:22:00 [facility] N[facility]eth [facility] AB [facility] IRON, TIBC, % SAT. 2023-01-25 18:22:00 AmandaAissatoumad [facility] (WITHOUT FERRITIN) Medical Cente r FERRITIN 2023-01-25 18:22:00 Wolfgang Patelliseth [facility] [id number]\, 2023-01-25 18:22:00 [facility] CERULOPLASMIN 2023-01-25 18:22:00 Amanda [facility] ANTI-NUCLEAR ANTIBODY 2023-01-25 18:22:00 [facility] MITOCHONDRIAL AB SCREEN 2023-01-25 18:22:00 Amanda, [facility] MITOCHONDRIAL AB TITER 2023-01-25 18:22:00 Amanda [facility] VENOUS DOPPLER ARMS 2023-01-25 18:10:00 Bessie Cleary [facility] 2D ECHO W/ DOPPLER 2023-01-25 16:20:00 [facility]le [facility] (CW/PW/COLOR) [facility] PROCALCITONIN 2023-01-25 14:03:00 Roxie Gomez [facility] POCT-GLUCOSE METER 2023-01-25 12:35:00 Calle [facility] XR CHEST 1 VIEW PORTABLE / 2023-01-25 10:44:00 Nilda Jimenes [facility] TSH/FREE T4 IF INDICATED 2023-01-25 10:42:00 Bessie Cleary [facility] VENOUS DOPPLER LEGS 2023-01-25 05:53:00 Ge[facility]te [facility] BASIC METABOLIC PANEL 2023-01-25 03:11:00 Sherry Pimentel [facility] CBC W/PLT COUNT & AUTO 2023-01-25 03:11:00 Sherry Pimentel [facility] HEPATIC FUNCTION PANEL 2023-01-25 03:11:00 Lima Lomax [facility] PERIPHERAL BLOOD SMEAR - 2023-01-25 03:11:00 Sherry Pimentel [facility] CBC W/PLT COUNT & AUTO 2023-01-25 03:11:00 Sherry Pimentel [facility] (MANUAL DIFFERENTIAL) 2023-01-25 03:11:00 Sherry Pimentel [facility] LACTIC ACID, VENOUS 2023-01-24 23:39:00 [facility] LACTIC ACID, VENOUS 2023-01-24 20:26:00 [facility] POCT-GLUCOSE METER 2023-01-24 18:00:00 Calle, [facility] US ABDOMEN LIMITED 2023-01-24 17:21:00 [facility] LACTIC ACID, VENOUS 2023-01-24 15:27:00 [facility] BLOOD GAS, VENOUS 2023-01-24 15:27:00 [facility] POCT-GLUCOSE METER 2023-01-24 13:08[facility] 2023-01-24 12:01:00 [facility] TROPONIN I 2023-01-24 12:01:00 [facility] XR CHEST 1 VIEW PORTABLE / 2023-01-24 11:15:00 Sherry Pimentel [facility] LACTIC ACID, VENOUS 2023-01-24 10:13:00 [facility] AMMONIA 2023-01-24 08:15[facility]-01-[facility] 08:15:00 [facility] SALICYLATE LEVEL 2023-01-24 07:59:[facility] 2023-01-24 07:51[facility]EN, URINE 2023-01-24 06:59:00 Georgette [facility] URINALYSIS W/ REFLEX URINE 2023-01-24 06:59:00 Lima Lomax [facility] ACETAMINOPHEN LEVEL 2023-01-24 06:58:00 Georgette [facility] BLOOD CULTURE 2023-01-24 06:46:00 Sherry Pimentel [facility] BLOOD CULTURE 2023-01-24 06:29:00 Sherry Pimentel [facility] CBC W/PLT COUNT & AUTO 2023-01-24 06:27:00 Sherry Pimentel [facility] LACTIC ACID, VENOUS 2023-01-24 06:27:00 Sherry Pimentel [facility] PROTHROMBIN TIME/INR 2023-01-24 06:27:00 Sherry Pimentel [facility] HEMOGLOBIN A1C 2023-01-24 06:27:00 Sherry Pimentel [facility] B-TYPE NATRIURETIC FACTOR 2023-01-24 06:27:00 Sherry Pimentel [facility] (BNP) [facility] D-DIMER 2023-01-24 06:27:00 Sherry Pimentel [facility] HEPATIC FUNCTION PANEL 2023-01-24 06:27:00 Georgette [facility] BASIC METABOLIC PANEL 2023-01-24 06:27:00 Georgette [facility] HEPATITIS PANEL, ACUTE 2023-01-24 06:27:00 Georgette [facility] LIPID PANEL 2023-01-24 06:27:00 Lima Lomax [facility] CBC W/PLT COUNT & AUTO 2023-01-24 06:27:00 Sherry Pimentel [facility] ECG 12-LEAD 2023-01-24 06:10:52 Sherry Pimentel [facility] ECG 12-LEAD 2023-01-24 06:10:52 Unknown, Hl7 [facility] ECG 12-LEAD 2023-01-24 06:10:52 Unknown, Hl7 [facility] BLOOD GAS, ARTERIAL 2023-01-24 06:05:00 Georgette [facility] POCT-GLUCOSE METER 2023-01-24 05:47:00 Georgette [facility] EKG-SCANNED 2023-01-24 00:00:00 [facility] Plan of Care Planned Activity [...] [facility] 00:[facility]00 2) [code = SHINGLES [facility] VACCINES (1 of 2)] Future Scheduled 2001 SHINGLES VACCINES ([address] [facility] Test 00:00:00 2) [code = SHINGLES [facility] VACCINES (1 of 2)] Future Scheduled 2001 SHINGLES VACCINES ([address] [facility] Test 00:00[facility]00 2) [facility] Future Scheduled [facility] [...] [facility] Test 00:00:00 [code = CT Colonography [facility] (combo)] Future Scheduled 1950 Screening [facility] malignant [facility] Test 00:00:00 neoplasm of colon Medical Ce nter (procedure) [code = 926617988] Future Scheduled 1950 Screening for malignant [facility] Test 00:00:00 neoplasm of colon Medical Ce nter (procedure) [code = 488000751] Future Scheduled 1950 Screening for malignant [facility] Test 00:00:00 neoplasm of colon Medical Ce nter (procedure) [code = 830611797] Future Scheduled 1950 Screening for malignant [facility] Test 00:00:00 neoplasm of colon Medical Ce nter (procedure) [code = 751572360] Future Scheduled 1950 Sigmoidoscopy [code = [facility] Sigmoidoscopy] Medical Cente r Future Scheduled 1951 CT Colonography (combo) [facility] Test 00:00:00 [code = CT Colonography [facility] (combo)] Future Scheduled 1950 Screening for malignant [facility] Test 00:00:00 neoplasm of colon Medical Ce nter (procedure) [code = 857818911] Future Scheduled 1950 Screening for malignant [facility] Test 00:00:00 neoplasm of colon Medical Ce nter (procedure) [code = 938490425] Future Scheduled 1950 Screening for malignant [facility] Test 00:00:00 neoplasm of colon Medical Ce nter (procedure) [code = 748696233] Future Scheduled 1951 Screening for malignant [facility] Test 00:00:00 neoplasm of colon Medical Ce nter (procedure) [code = 855694899] Future Scheduled 1950 Sigmoidoscopy [code = [facility] 00:00:00 Sigmoidoscopy] Medical Cente r Future Scheduled 1951 CT Colonography (combo) [facility] Test 00:00:00 [code = CT Colonography [facility] (combo)] Future Scheduled 1950 Screening for malignant [facility] Test 00:00:00 neoplasm of colon Medical Ce nter (procedure) [code = 514637576] Future Scheduled 1950 Screening for malignant [facility] Test 00:00:00 neoplasm of colon Medical Ce nter (procedure) [code = 635462155] Future Scheduled 1950 Screening for malignant [facility] Test 00:00:00 neoplasm of colon Medical Ce nter (procedure) [code = 356950700] Future Scheduled 1951 Screening for malignant [facility] Test 00:00:00 neoplasm of colon Medical Ce nter (procedure) [code = 903853507] Future Scheduled 1950 Sigmoidoscopy [facility]code [facility] 00:[facility]00 Sigmoidoscopy] Medical Cente r Encounters Start End Encounter Admission Attending Care Care Encounter Source Date/Time Date/Time Type Type Clinicians Facility Department ID 2023-04-25 2023-04-25 Outpatient [facility]_Stocks_ AOSM AOSM [id number] Doreen 00:00:00 00:00:00 [facility] [id number] [facility] 2023-04-25 2023-04-25 Outpatient FOG_Stocks_ AOSM AOSM [id number] Doreen 00:00:00 00:00:00 [facility] [id number] [facility] 2023-04-11 2023-04-12 Inpatient EL Cintia HCATO SURG [id number] [facility] 13:25:00 13:34:00 Jeremiah [facility] 2023-04-11 2023-04-11 Outpatient Cintia, HCACL LABO [id number] [facility] 17:04:00 17:04:00 Jeremiah Chang [facility] 2023-04-11 2023-04-11 Outpatient FOG_Stocks_ AOSM AOSM [id number] Doreen 00:00:00 00:00:00 Bandar [id number] [facility] 2023-04-11 2023-04-11 Outpatient FOG_Stocks_ AOSM AOSM [id number] Doreen 00:00:00 00:00:00 Bandar [id number] [facility] 2023-04-07 2023-04-07 Outpatient FOG_Stocks_ AOSM AOSM [id number] Doreen 00:00:00 00:00:00 Bandar [id number] [facility] 2023-03-16 2023-03-16 Outpatient FOG_Stocks_ AOSM AOSM [id number] Doreen 00:00:00 00:00:00 Bandar [id number] [facility] 2023-02-24 2023-02-24 Outpatient FOG_Stocks_ AOSM AOSM [id number] Doreen 00:00:00 00:00:00 Bandar [id number] [facility] 2023-02-22 2023-02-22 Outpatient FOG_Bennett AOSM AOSM [id number] Doreen 00:00:00 00:00:00 _Mic [id number] [facility] 2023-02-21 2023-02-21 Outpatient FOG_Bennett AOSM AOSM [id number] Doreen 00:00:00 00:00:00 _Mic [id number] [facility] 2023-01-24 2023-01-29 [facility] [id number] 05:21:00 11:56:00 Encounter [facility] enter 2023-01-24 2023-01-29 Inpatient ER [facility] Pulmonology [id number] [facility] 05:21:00 11:56:00 [facility] 2023-01-24 2023-01-29 [facility] [id number] 05:21:00 11:56:00 Encounter [facility] enter 2023-01-24 2023-01-24 Travel [facility] [id number] [facility]00 00:[facility]:00 [facility] 2023-01-24 2023-01-24 Orders [facility] [id number] 00:00:00 00:00:[address] [facility] 2023-01-24 2023-01-24 Travel [facility] [id number] [facility] 00[facility]00 [facility] 2023-01-24 2023-01-24 Orders [facility] [id number] 00:00:00 00:00:[address] [facility] Results Test Description Test Time Test Comments Results Result Comments Source THROMBOPLASTIN TIME PARTIAL 2023-04-11 10:31:00 Test Item Value Reference Range Interpretation Comme nts PTT ACTIVATED (test code = APTT) 34.0 secs 25.1-36.5 N SPECIMEN COMMENT: PREIS PATIENT ON ANTICOAGULANTS ? YLIST ANTICOAGULANT/ANTI PLT MEDICATION : AspirinHas Lab been notified if Patient is on Heparin Drip? NOSPECIMEN COMMENT: PRE SURGPROTHROMBIN [id number] 10:31:00 Test Item Value Reference Range Interpretation [...] NOSPECIMEN COMMENT: PRE SURGANTI-MITOCHONDRIAL AB, REFLEX TO [id number] 14:45:07 Test Item Value Reference Range Interpretation Comments SCAN RESULT (test code = SEE RESULTS BELOW 1512608) BLOOD [id number] 13:00:49 Test Item Value Reference Range Interpretation Comments CULTURE (BEAKER) (test No growth in 5 days code = 1095) BLOOD [id number] 13:00:49 Test Item Value Reference Range Interpretation Comments CULTURE (BEAKER) (test No growth in 5 days code = 1095) COMPREHENSIVE METABOLIC [id number] 06:31:09 Test Item Value Reference Range Interpretation [...] not appl icable for dialysis patien ts Credit Product Analyst ID - [id number] W/PLT COUNT & AUTO [id number] 05:48:29 Test Item Value Reference Range Interpretation [...] PERCENT (BEAKER) (test code = 2801) POC-Glucose [id number] 05:39:29 Test Item Value Reference Range Interpretation Comments POC-Glucose Meter (test 126 mg/dL 70-110 H : TE STED AT [facility] code = 1538) [address] [facility] [address]: Credit Product Analyst/Techni sarah ID = [id number] for Moore, Joanne Lab Interpretation (test Abnormal code = 11453-1) [facility] [id number] 05:39:29 Test Item Value Reference Range Interpretation Comments POC-Glucose Meter (test 126 mg/dL 70-110 H : TE STED AT [facility] code = 1538) [address] [facility] [address]: Credit Product Analyst/Techni sarah ID = [id number] for Moore, Joanne Lab Interpretation (test Abnormal code = 61161-3) [facility] [id number] 05:39:29 Test Item Value Reference Range Interpretation Comments POC-Glucose Meter (test 126 mg/dL 70-110 H : TE STED AT [facility] code = 1538) [address] [facility] [address]: Credit Product Analyst/Techni sarah ID = [id number] for Joanne Moore Lab Interpretation (test Abnormal code = 31268-0) [facility]-GLUCOSE [id number] 05:39:29 Test Item Value Reference Range Interpretation Comments POC-GLUCOSE METER 126 mg/dL 70-110 H : TESTED A T [facility] [address]74 (BEAKER) (test code [facility] [address] THE, = 1538) [place] [address] 384: Credit Product Analyst/Techni sarah ID = [id number] for Joanne Alexander POCT-GLUCOSE [id number] 20:44:34 Test Item Value Reference Range Interpretation Comments POC-GLUCOSE METER 128 mg/dL 70-110 H : TESTED A T [facility] [address]375 (BEAKER) (test code [facility] [address] THE, = 1538) [place] [address] 384: Credit Product Analyst/Techni sarah ID = [id number] for Joanne Alexander POCT-GLUCOSE [id number] 16:24:13 Test Item Value Reference Range Interpretation Comments POC-GLUCOSE METER 198 mg/dL 70-110 H : TESTED A T [facility] [address] (BEAKER) (test code [facility] [address] THE, = 1538) [place] [address] 384: Credit Product Analyst/Techni sarah ID = [id number] for C Vicente philip POCT-GLUCOSE [id number] 12:17:57 Test Item Value Reference Range Interpretation Comments POC-GLUCOSE METER 137 mg/dL 70-110 H : TESTED A T [facility] [address]694 (BEAKER) (test [facility], = 1538) [place] [address] 384: Credit Product Analyst/Techni sarah ID = [id number] for C cedrick Vicente COMPREHENSIVE METABOLIC [id number] 05:47:50 Test Item Value Reference Range Interpretation [...] 30-44 G4 Severl y decreased 15-29 G5 Kidne y failure <15Reported eGF R is based on the CKD-EPI 2021 equation that d oes not use a race coefficientEsti mated GFR is not as accur ate as Creatinine Geri wong in predicting glom erular filtration rate . Estimated GFR is not appl icable for dialysis patien ts Credit Product Analyst ID - [id number] W/PLT COUNT & AUTO [id number] 05:35:47 Test Item Value Reference Range Interpretation [...] PERCENT (BEAKER) (test code = 2801) POCT-GLUCOSE [id number] 21:24:11 Test Item Value Reference Range Interpretation Comments POC-GLUCOSE METER 139 mg/dL 70-110 H : TESTED A T [facility] [address] (BEAKER) (test code [facility], = 1538) [place] [address] 384: Credit Product Analyst/Techni sarah ID = [id number] for Kranthi Aragon POCT-GLUCOSE [id number] 16:59:37 Test Item Value Reference Range Interpretation Comments POC-GLUCOSE METER 128 mg/dL 70-110 H : TESTED A T [facility] [address] (BEAKER) (test code [facility], = 1538) [place] [address] 384: Credit Product Analyst/Techni sarah ID = [id number] for A Edie dye [id number] 16:28:15 Test Item Value Reference Range Interpretation Comments AMMONIA (BEAKER) (test code = 348) 23 mol/L 12-72 Credit Product Analyst ID - [id number], CHEST, 1 VIEW, NON [id number] 13:51:00Reason for exam:->acute hypoxic respiratory failureShould this be performed at the bedside?->Yes[facility] : 1950 Sex: MFINAL REPORT Chest AP portable COMPARISON STUDY: 01/25/2023 History provided: Acute hypoxicrespiratory failure Degree of inspiration is poor. Heart size normal. Right basilar subsegmental atelectasis persists. Lungs otherwise clear and vascularity normal. Signed: Jesus Manuel Mcneill MDReport Verified Date/Time: 01/27/2023 13:51:10 Reading Location: [facility] Diagnostic Imaging Reading Room - [facility] 1.310.12 -GLUCOSE [id number] 12:58:31 Test Item Value Reference Range Interpretation Comments POC-GLUCOSE METER 130 mg/dL 70-110 H : TESTED A T [facility] [address] (BEAKER) (test code [facility] [address] [facility], = 1538) [place] [address] 384: Credit Product Analyst/Techni sarah ID = [id number] for A Edie dye HEPATIC FUNCTION [id number] 10:50:18 Test Item Value Reference Range Interpretation [...] code = 202 U/L 6-50 H 347) Credit Product Analyst ID - [id number], ABDOMEN, [id number] 08:54:00Unlisted Reason for Exam - Click Yes and Enter Reason Below->No [facility] : 1950 Sex: MFINAL REPORT TECHNIQUE: MRI of the abdomen and MRCP WITHOUT intravenous contrast. 3-D volume reconstructions were obtained to evaluate the biliary ductal system. INDICATION: Hepatic failure. COMPARISON: CT from 01/23/2023. FINDINGS: ABSENCE OF INTRAVENOUS CONTRAST DECREASES SENSITIVITY FOR DETECTION OF FOCAL LESIONS AND VASCULAR PATHOLOGY. Evaluation is suboptimal due to respiratory motion artifact on some sequences. LOWER THORAX: Mild bibasilar atelectasis. LIVER: There is scattered loss of signal in the liver on out of phase imaging. There is a rounded area in segment VIII which measures0.8 cm and is indeterminate. This is most likely a portosystemic shunt. BILIARY: Prior cholecystectomy. The common bile duct measures 0.8 cm in diameter, and the common hepatic duct measures 1.5 cm in diameter. No significant intrahepatic ductal dilation.SPLEEN: 16 cm splenomegaly.PANCREAS: No focal masses or ductal dilatation. ADRENALS: No adrenal nodules.KIDNEYS/URETERS: No hydronephrosis or solid mass lesions. A few bilateral simple renal cysts measure up to 5.2 cm. No follow-up imaging is recommended for these findings. PERITONEUM/RETROPERITONEUM: No free fluid.LYMPH NODES: No lymphadenopathy.VESSELS: Unremarkable. GI TRACT: No distention or wall thickening. Moderate diverticulosis of the sigmoid colon. BONES AND SOFT TISSUES: Unremarkable. IMPRESSION: 1.The common hepatic duct is mildly dilated but without other findings to suggest obstruction. Penelope phenomenon from a prior cholecystectomy is possible. 2.Geographic fatty infiltration of the liver 3.Moderate splenomegaly Signed: Madhu Leblanc MDReport Verified Date/Time: 01/27/2023 08:54:01 Reading Location: [address] Consult Reading Room BASIC METABOLIC [id number] 06:39:37 Test Item Value Reference Range Interpretation [...] not appl icable for dialysis patien ts Credit Product Analyst ID - [id number] W/PLT COUNT & AUTO [id number] 06:11:02 Test Item Value Reference Range Interpretation [...] PERCENT (BEAKER) (test code = 2801) POCT-GLUCOSE [id number] 05:52:43 Test Item Value Reference Range Interpretation Comments POC-GLUCOSE METER 135 mg/dL 70-110 H : TESTED A T [facility] [address] (BEAKER) (test code [facility], = 1538) [place] [address] 384: Credit Product Analyst/Techni sarah ID = [id number] for Karmen Lara COVID [id number] 22:29:18 Test Item Value Reference Range Interpretation Comments SARS COVID ANTIGEN Negative Negative, (test code = 09809-6) Presumptive Positive WESLY (test code = WESLY) The QuickVue SARS Antigen test does not differentiate between SARS-CoV and SARS-CoV-2. The test has been authorized by the FDA under an EUA for use by authorized laboratories. Lab Interpretation Normal (test code = 86594-1) [facility] [id number] 22:29:18 Test Item Value Reference Range Interpretation Comments SARS COVID ANTIGEN Negative Negative, (test code = 13974-0) Presumptive Positive WESLY (test code = WESLY) The QuickVue SARS Antigen test does not differentiate between SARS-CoV and SARS-CoV-2. The test has been authorized by the FDA under an EUA for use by authorized laboratories. Lab Interpretation Normal (test code = 94064-1) [facility] [id number] 22:29:18 Test Item Value Reference Range Interpretation Comments SARS COVID ANTIGEN Negative Negative, (test code = 94960-7) Presumptive Positive WESLY (test code = WESLY) The QuickVue SARS Antigen test does not differentiate between SARS-CoV and SARS-CoV-2. The test has been authorized by the FDA under an EUA for use by authorized laboratories. Lab Interpretation Normal (test code = 94881-2) [facility] [id number] 22:29:18 Test Item Value Reference Range Interpretation Comments SARS COVID ANTIGEN (test Negative Negative, Presumptive code = 63021509) Positive The QuickVue SARS Antigen test does not differentiate between SARS-CoV and SARS-CoV-2.The test has been authorized by the FDA under an EUA for use by authorized laboratories.CT, CHEST, WITHOUT [id number] 18:58:00Unlisted Reason for Exam - Click Yes and Enter Reason Below->No [facility] : 1950 Sex: MFINAL REPORT [...] atelectasis.Superimposed infection or aspiration excluded. Signed: Schuyler Gomez [facility] Verified Date/Time: 01/26/2023 18:58:47 POCT-GLUCOSE [id number] 16:50:56 Test Item Value Reference Range Interpretation Comments POC-GLUCOSE METER 209 mg/dL 70-110 H : TESTED Ba Zavala [facility] [address] (BEAKER) (test code [facility], = 1538) [facility] [address] 384: Credit Product Analyst/Techni sarah ID = [id number] for Patito Chanel ANTI-NUCLEAR ANTIBODY (NATACHA)2023-01-26 14:13:36 [...] code = 254 U/L 6-50 H 347) Credit Product Analyst ID - [id number] 12:40:21 Test Item Value Reference Range Interpretation Comments POC-GLUCOSE METER 205 mg/dL 70-110 H : TESTED A T [facility] [address] (BEAKER) (test code [facility], = 1538) [place] [address] 384: Credit Product Analyst/Techni sarah ID = [id number] for A Edie dye POCT-GLUCOSE [id number] 06:38:55 Test Item Value Reference Range Interpretation Comments POC-GLUCOSE METER 245 mg/dL 70-110 H : TESTED A T [facility] [address] (BEAKER) (test code [facility], = 1538) [place] [address] 384: Credit Product Analyst/Techni sarah ID = [id number] for Marlen Morin 2D Echo W/Doppler(CW/PW/Color)2023-01-26 06:00:40Ejection [facility]ractionSLEH [facility]Do[facility](CW/PW/Color)2023-01-26 06:00:40Ejection FractionSLEH ECHO [facility] W/Doppler(CW/PW/Color) 2023-01-26 06:00:40Ejection FractionSLEH ECHO [facility]ARTLAB [facility]/PLT COUNT & AUTO [id number] 05:48:40 Test Item Value Reference Range Interpretation Comments WHITE BLOOD CELL COUNT (BEAKER) 13.1 K/ L 4.0-10.0 H (test code = 775) RED BLOOD CELL COUNT (BEAKER) 4.60 M/ L 4.20-5.80 (test code = [...] (BEAKER) (test code = 2801) BASIC METABOLIC [id number] 05:14:29 Test Item Value Reference Range Interpretation [...] not appl icable for dialysis patien ts Credit Product Analyst ID - VATPOCT-GLUCOSE [id number] 01:41:01 Test Item Value Reference Range Interpretation Comments POC-GLUCOSE METER 253 mg/dL 70-110 H : [facility] T [facility] [address] (TVDeck) (test code [employer] [facility], = 1538) [place] [address] 384: Credit Product Analyst/Techni sarah ID = [id number] for Barbara Roblero [id number]-3-[id number] 22:51:50 Test Item Value Reference Range Interpretation Comments ALPHA-1 ANTITRYPSIN (BEAKER) 337.10 mg/dL 90.00-200.00 H (test code = 502) Credit Product Analyst ID - MMOperator ID - MMPOCT-GLUCOSE [id number] 21:48:26 Test Item Value Reference Range Interpretation Comments POC-GLUCOSE METER 223 mg/dL 70-110 H : TESTED A T [facility] [address] ([employer]) (test code [facility], = 1538) [place] [address] 384: Credit Product Analyst/Techni sarah ID = [id number] for Marlen Morin [id number] 20:25:11 Test Item Value Reference Range Interpretation Comments FERRITIN (BEAKER) (test code = 68161.90 ng/mL 22.00-322.00 H 361) Credit Product Analyst ID - [id number] ID - [id number], TIBC, % SAT. (WITHOUT FERRITIN) 2023-01-25 19:25:07 Test Item Value Reference Range Interpretation Comments IRON (BEAKER) (test code = 547) 39.0 ug/dL 35.0-175.0 TOTAL IRON BINDING CAPACITY 154 ug/dL 250-550 L (BEAKER) (test code = 769) IRON % SATURATION (2) (BEAKER) 25 % 20-55 (test code = 2590) Credit Product Analyst ID - [id number] 18:42:26 Test Item Value Reference Range Interpretation Comments POC-GLUCOSE METER 257 mg/dL 70-110 H : TESTED A T [facility] [address] (BEAKER) (test code [facility], = 1538) [place] [address] 384: Credit Product Analyst/Techni sarah ID = [id number] for Chandana Delaney VENOUS DOPPLER ARMS, [id number] 18:28:00Reason for exam:->bue swellingCHI [facility]: ISABELLAGONZALO : 1950 Sex: MFINAL REPORT HISTORY : [...] upper extremity deep venous thrombosis. Signed: Schuyler Gomezort Verified Date/Time: 01/25/2023 18:28:21 PROCALCITONIN 2023-01-25 15:27:46 Test Item Value Reference Range Interpretation Comments PROCALCITONIN (BEAKER) (test code 2.63 ng/mL <0.05 H = 3036) SEPSIS RISK (ng/mL)Low: 0.05-0.50Intermediate: 0.51-2.00High: >=2.01POCT- GLUCOSE [id number] 12:46:25 Test Item Value Reference Range Interpretation Comments POC-GLUCOSE METER 175 mg/dL 70-110 H : TESTED A T [facility] [address] (NIDA) (test code [facility], = 1538) [place] [address] 384: Credit Product Analyst/Techni sarah ID = [id number] for C apps, Dianamarie TSH/FREE T4 IF [id number] 11:36:03 Test Item Value Reference Range Interpretation Comments THYROID STIMULATING HORMONE 0.370 uIU/mL 0.350-5.500 (MARYJANEAKER) (test code = 772) Credit Product Analyst ID - [id number], CHEST, 1 VIEW, NON [id number] 09:20:00Reason for exam:->resp evalShould this be performed at the bedside?->Yes [facility] : 1950 Sex: MFINAL REPORT Chest AP portable COMPARISON STUDY: 01/24/2023 History provided: Respiratory evaluation Heart size normal. Mild bibasilar atelectatic change. Lungs are poorly expanded but otherwise grossly clear, with vascularity normal. Signed: Jesus Manuel Mcneill Verified Date/Time: 01/25/2023 09:20:13 Reading Location: [facility] Radiology Reading Room VENOUS DOPPLER LEGS, [id number] 07:38:00 Reason for exam:->r/o DVT [facility] : 1950 Sex: MFINAL REPORT [...] thrombi as described above. Signed: Osmel Reyes Verified Date/Time: 01/25/2023 07:38:06 PHERAL BLOOD SMEAR - PATH REVIEW LAB [id number] 07:24:07 Test Item Value Reference Range Interpretation Comments PERIPHERAL SMR REVIEW Thrombocytopenia. Rare (BEAKER) (test code = platelet clump seen on 2640) smear review. No schistocytes seen. Recommend repeat platelet count. WBCs and RBCs unremarkable. [id number] Stan Diaz M.D. (BEAKER) (test code = (electronic signature) 1733) (MANUAL DIFFERENTIAL)2023-01-25 07:22:23 Test Item Value Reference [...] (test code Normal = 762) U/S, ABDOMINAL, [id number] 05:25:00Abdomen limited area? Add comment if clarification is needed.->Right upper quadrantReason for exam:->elevated LFTsShould this be performed at the bedside?->Yes [facility] : 1950 Sex: MFINAL REPORT History: elevated LFTs Abdominal ultrasound dated 01/24/2023 Comparison: NoneComment: Real-time transabdominal ultrasound of the right upper [...] 01/25/2023 05:25:03 CBC W/PLT COUNT & AUTO [id number] 04:07:35 Test Item Value Reference Range Interpretation [...] 0-0 (test code = 413) BASIC METABOLIC [id number] 03:55:23 Test Item Value Reference Range Interpretation [...] not appl icable for dialysis patien ts Credit Product Analyst ID - VATHEPATIC FUNCTION [id number] 03:55:09 Test Item Value Reference Range Interpretation [...] code = 323 U/L 6-50 H 347) Credit Product Analyst ID - VATLACTIC ACID, [id number] 00:15:02 Test Item Value Reference Range Interpretation Comments LACTATE BLOOD VENOUS (2) (BEAKER) 2.08 mmol/L 0.50-2.20 (test code = 2872) Credit Product Analyst ID - VATLACTIC ACID, [id number] 21:31:24 Test Item Value Reference Range Interpretation Comments LACTATE BLOOD VENOUS 2.37 mmol/L 0.50-2.20 H Specime n markedly (2) (BEAKER) (test hemolyzed code = 2872) Credit Product Analyst ID - JBALLOALLOPOCT-GLUCOSE [id number] 18:42:09 Test Item Value Reference Range Interpretation Comments POC-GLUCOSE METER 164 mg/dL 70-110 H : TESTED A T [facility] [address] (BEAKER) (test code [facility] [address] [address] [facility], = 1538) [place] [address] 384: Credit Product Analyst/Techni sarah ID = [id number] for Stephanie Campbell POCT-GLUCOSE [id number] 18:41:38 Test Item Value Reference Range Interpretation Comments POC-GLUCOSE METER 157 mg/dL 70-110 H : TESTED A T [facility] [address] (BEAKER) (test code [facility] [address] [facility], = 1538) [place] [address] 384: Credit Product Analyst/Techni sarah ID = [id number] for Stephanie Campbell LACTIC ACID, [id number] 15:52:58 Test Item Value Reference Range Interpretation Comments LACTATE BLOOD VENOUS 2.52 mmol/L 0.50-2.20 H Specime n slightly (2) (BEAKER) (test hemolyzed code = 2872) Credit Product Analyst ID - JBALLOALLOBLOOD GAS, [id number] 15:38:31 Test Item Value Reference Range Interpretation [...] 1819) 40.0 Urinalysis w/Microscopic + Reflex to [id number] 15:05:23 Test Item Value Reference Range Interpretation Comments Color, UA (test code Aletha = 5778-6) Clarity, UA (test Slightly Cloudy code = 5767-9) Specific Stites, UA 1.001-1.035 Specifi c gravity (test code = 5811-5) perform ed on refractometer. pH, UA (test code = 5.0 5.0-8.0 5803-2) Protein, UA (test 100 mg/dL Negative A code = 71185-1) Glucose, UA (test Negative Negative code = 365) Ketones, UA (test Negative Negative code = 2514-8) Bilirubin, UA (test Negative Negative code = 97719-0) Blood, UA (test code Small Negative A = 23225-6) Nitrite, UA (test Negative Negative code = 5802-4) Leukocytes, UA (test Negative Negative code = 5799-2) Urobilinogen, UA (test code = 76439-6) RBC, UA (test code = 22 See_Comment [Autom ated 24528-6) message] The system which generated this result [...] . Bacteria, UA (test Rare code = 45486-0) Mucus (test code = Rare 8247-9) Squam Epithel, UA See_Comment [Automate d (test code = 39075-4) messag e] The system which generated this result transmit annie reference range : /HPF. The reference range was not used to interpret this result as normal/abnormal . Specimen Source (test code = 2795) WESLY (test code = WESLY) Credit Product Analyst ID - tech Lab Interpretation Abnormal (test code = 00613-1) [facility]/Microscopic + Reflex to Culture 2023-01-24 15:05:23 Test Item Value Reference Range Interpretation Comments Color, UA (test code Aletha = 5778-6) Clarity, UA (test Slightly Cloudy code = 5767-9) Specific Stites, UA 1.001-1.035 Specifi c gravity (test code = 5811-5) perform ed on refractometer. pH, UA (test code = 5.0 5.0-8.0 5803-2) Protein, UA (test 100 mg/dL Negative A code = 99034-2) Glucose, UA (test Negative Negative code = 365) Ketones, UA (test Negative Negative code = 2514-8) Bilirubin, UA (test Negative Negative code = 99416-2) Blood, UA (test code Small Negative A = 39879-6) Nitrite, UA (test Negative Negative code = 5802-4) Leukocytes, UA (test Negative Negative code = 5799-2) Urobilinogen, UA (test code = 49182-3) RBC, UA (test code = 22 See_Comment [Autom ated 52504-6) message] The system which generated this result [...] . Bacteria, UA (test Rare code = 33886-0) Mucus (test code = Rare 8247-9) Squam Epithel, UA See_Comment [Automate d (test code = 63126-5) messag e] The system which generated this result transmit annie reference range : /HPF. The reference range was not used to interpret this result as normal/abnormal . Specimen Source (test code = 2795) WESLY (test code = WESLY) Credit Product Analyst ID - tech Lab Interpretation Abnormal (test code = 19030-7) [facility]/Microscopic + Reflex to Culture 2023-01-24 15:05:23 Test Item Value Reference Range Interpretation Comments Color, UA (test code Aletha = 5778-6) Clarity, UA (test Slightly Cloudy code = 5767-9) Specific Stites, UA 1.001-1.035 Specifi c gravity (test code = 5811-5) perform ed on refractometer. pH, UA (test code = 5.0 5.0-8.0 5803-2) Protein, UA (test 100 mg/dL Negative A code = 14057-0) Glucose, UA (test Negative Negative code = 365) Ketones, UA (test Negative Negative code = 2514-8) Bilirubin, UA (test Negative Negative code = 88441-9) Blood, UA (test code Small Negative A = 60855-2) Nitrite, UA (test Negative Negative code = 5802-4) Leukocytes, UA (test Negative Negative code = 5799-2) Urobilinogen, UA (test code = 83620-8) RBC, UA (test code = 22 See_Comment [Autom ated 04779-1) message] The system which generated this result [...] . Bacteria, UA (test Rare code = 29505-9) Mucus (test code = Rare 8247-9) Squam Epithel, UA See_Comment [Automate d (test code = 72098-8) alberto e] The system which generated this result transmit annie reference range : /HPF. The reference range was not used to interpret this result as normal/abnormal . Specimen Source (test code = 2795) WESLY (test code = WESLY) Credit Product Analyst ID - tech Lab Interpretation Abnormal (test code = 75062-0) [facility]/ REFLEX URINE [id number] 15:05:23 Test Item Value Reference Range Interpretation [...] = 516) SOURCE(BEAKER) (test code = 2795) Credit Product Analyst ID - techPOCT-GLUCOSE [id number] 13:19:32 Test Item Value Reference Range Interpretation Comments POC-GLUCOSE METER 184 mg/dL 70-110 H : TESTED A T [facility] [address] (BEAKER) (test code [facility], = 1538) [place] [address] 384: Credit Product Analyst/Techni sarah ID = [id number] for Stephanie Campbell TROPONIN [id number] 12:35:19 Test Item Value Reference Range Interpretation [...] failure, acidosis, acute neurological disease, and persistent tachyarrhythmia.Credit Product Analyst ID - [id number] ACID, VENOUS 2023-01-24 12:30:33 Test Item Value Reference Range Interpretation Comments LACTATE BLOOD VENOUS 2.53 mmol/L 0.50-2.20 H Specime n slightly (2) (BEAKER) (test hemolyzed code = 2872) Credit Product Analyst ID - [id number] PANEL, [id number] 12:06:19 Test Item Value Reference Range Interpretation Comments HEPATITIS A IGM ANTIBODY (BEAKER) Nonreactive Nonreactive (test code = 498) HEPATITIS B CORE IGM ANTIBODY Nonreactive Nonreactive (BEAKER) (test code = 645) HEPATITIS C ANTIBODY (BEAKER) Nonreactive Nonreactive (test code = 367) HEPATITIS B SURFACE ANTIGEN (2) Nonreactive Nonreactive (BEAKER) (test code = 2585) Credit Product Analyst ID - JSLIPID [id number] 11:56:19 Test Item Value Reference Range Interpretation [...] Borderline 130-159 High 160-189 Very High >=190 Credit Product Analyst ID - [id number], CHEST, 1 VIEW, NON [id number] 11:41:00Reason for exam:- >Sortness of breathShould this be performed at the bedside?->Yes [facility] : 1950 Sex: MFINAL REPORT HISTORY: Shortness of breath COMPARISON: None FINDINGS: The lungs are clear. No pleural effusions or pneumothorax. The heart shadow is normal in size. The thoracic aorta is mildly tortuous. 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 IMPRESSION: No evidence of acute cardiopulmonary disease. Signed: Cally Banuelos [facility] Verified Date/Time: 01/24/2023 11:41:40 LACTIC ACID, [id number] 10:45:25 Test Item Value Reference Range Interpretation Comments LACTATE BLOOD VENOUS 1.86 mmol/L 0.50-2.20 Specime n slightly (2) (MARYJANEBIANCA) (test hemolyzed code = 2872) Credit Product Analyst ID - [id number] 09:39:58 Test Item Value Reference Range Interpretation Comments TROPONIN I (NIDA) (test code = 0.06 ng/mL 0.00-0.15 397) [...] failure, acidosis, acute neurological disease, and persistent tachyarrhythmia.Credit Product Analyst ID - [id number] LEVEL 2023-01-24 09:13:44 Test Item Value Reference Range Interpretation Comments ACETAMINOPHEN LEVEL < ug/mL 10.0-30.0 L Specimen moderately (BEAKER) (test code = hemoly zed 344) Credit Product Analyst ID - [id number] [id number] 09:00:20 Test Item Value Reference Range Interpretation Comments SALICYLATE LEVEL (BEAKER) (test code < mg/dL 20.0-30.0 L = 764) Credit Product Analyst ID - [id number] 08:48:13 Test Item Value Reference Range Interpretation Comments AMMONIA (BEAKER) (test code = 348) 49 mol/L 12-72 Credit Product Analyst ID - [id number] 08:12:08 Test Item Value Reference Range Interpretation Comments PROTIME (BEAKER) (test code = 13.3 seconds 11.8-14.4 759) INR (BEAKER) (test code = 370) 0.97 1.20-1.50 L RECOMMENDED COUMADIN/WARFARIN INR THERAPY RANGESSTANDARD DOSE: 2.0 - 3.0 Includes: PROPHYLAXIS for venous thrombosis, systemic embolization; TREATMENT for venous thrombosis and/or pulmonary embolus.HIGH RISK: Target INR is 2.5-3.5 for patients with mechanical heart valves.[id number] 08:09:44 Test Item Value Reference Range Interpretation [...] exclusion of thrombosis is within 95-100% range. [id number] 08:04:09 Test Item Value Reference Range Interpretation Comments ETHANOL (BEAKER) (test code = 400) < mg/dL <=10 Credit Product Analyst ID - [id number] drug screen, [id number] 08:02:57 Test Item Value Reference Range Interpretation Comments Barbiturate Screen Negative Negative (test code = 59437-7) Benzodiazepine Screen Negative Negative (test code = 04330-3) Cocaine (Metab.) Negative Negative Screen (test code = 3397-7) Methadone Screen (test Negative Negative code = 24738-5) Opiate Screen (test Negative Negative code = 18933-9) Cannabinoid Screen Negative Negative (test code = 61029-4) Amph/Methamph Screen Negative Negative (test code = 04530-0) Phencyclidine Screen Negative Negative (test code = 70374-8) pH, UA (test code = 6.0 5.0-8.0 5803-2) WESLY (test code = WESLY) DRUG CUTOFF CONC.Cocaine 300 ng/mL Cannabinoid 50 ng/mLBenzodiazepine 200 ng/mLBarbiturate 200 ng/mLPhencyclidine 25 ng/mLOpiate 300 ng/mLMethadone 300 ng/mLAmphetamine/ 1000 ng/mL Methamphetamine This assay provides an unconfirmed qualitative test result for the clinical management of patients in emergency situations. Chain of custody not maintained. Some kziu-rkg-gaeaklg medications, as well as adulterants, may cause inaccurate results. Clinical correlation should be applied. A more comprehensive drug screen or confirmation of a detected drug may be performed upon request.Credit Product Analyst ID - [id number] Lab Interpretation Normal (test code = 32895-1) [facility], [id number] 08:02:57 Test Item Value Reference Range Interpretation Comments Barbiturate Screen Negative Negative (test code = 87051-4) Benzodiazepine Screen Negative Negative (test code = 61364-8) Cocaine (Metab.) Negative Negative Screen (test code = 3397-7) Methadone Screen (test Negative Negative code = 01012-6) Opiate Screen (test Negative Negative code = 40938-8) Cannabinoid Screen Negative Negative (test code = 02580-5) Amph/Methamph Screen Negative Negative (test code = 18830-3) Phencyclidine Screen Negative Negative (test code = 61419-9) pH, UA (test code = 6.0 5.0-8.0 5803-2) WESLY (test code = WESLY) DRUG CUTOFF CONC.Cocaine 300 ng/mL Cannabinoid 50 ng/mLBenzodiazepine 200 ng/mLBarbiturate 200 ng/mLPhencyclidine 25 ng/mLOpiate 300 ng/mLMethadone 300 ng/mLAmphetamine/ 1000 ng/mL Methamphetamine This assay provides an unconfirmed qualitative test result for the clinical management of patients in emergency situations. Chain of custody not maintained. Some wwmw-rih-zodfzej medications, as well as adulterants, may cause inaccurate results. Clinical correlation should be applied. A more comprehensive drug screen or confirmation of a detected drug may be performed upon request.Credit Product Analyst ID - [id number] Lab Interpretation Normal (test code = 27337-8) [facility], [id number] 08:02:57 Test Item Value Reference Range Interpretation Comments Barbiturate Screen Negative Negative (test code = 15687-6) Benzodiazepine Screen Negative Negative (test code = 90533-6) Cocaine (Metab.) Negative Negative Screen (test code = 3397-7) Methadone Screen (test Negative Negative code = 42086-7) Opiate Screen (test Negative Negative code = 13491-8) Cannabinoid Screen Negative Negative (test code = 09821-5) Amph/Methamph Screen Negative Negative (test code = 79604-3) Phencyclidine Screen Negative Negative (test code = 79386-1) pH, UA (test code = 6.0 5.0-8.0 5803-2) WESLY (test code = WESLY) DRUG CUTOFF CONC.Cocaine 300 ng/mL Cannabinoid 50 ng/mLBenzodiazepine 200 ng/mLBarbiturate 200 ng/mLPhencyclidine 25 ng/mLOpiate 300 ng/mLMethadone 300 ng/mLAmphetamine/ 1000 ng/mL Methamphetamine This assay provides an unconfirmed qualitative test result for the clinical management of patients in emergency situations. Chain of custody not maintained. Some xbjv-fck-vfrqbih medications, as well as adulterants, may cause inaccurate results. Clinical correlation should be applied. A more comprehensive drug screen or confirmation of a detected drug may be performed upon request.Credit Product Analyst ID - [id number] Lab Interpretation Normal (test code = 99124-8) [facility], [id number] 08:02:57 Test Item Value Reference Range Interpretation [...] ng/mLOpiate 300 ng/mLMethadone 300 ng/mLAmphetamine/ 1000 ng/mL MethamphetamineThisassay provides an unconfirmed qualitative test result for the clinical management of patients in emergency situations. Chain of custody not maintained. Some yphz-yho-zlkmqii medications, as well as adulterants, may cause inaccurate results. Clinical correlation should be applied. A more comprehensive drug screen or confirmation of a detected drug may be performed upon request.Credit Product Analyst ID - [id number] 2023-01-24 07:28:21 Test Item Value Reference Range Interpretation Comments HEMOGLOBIN A1C (BEAKER) (test code = 5.6 % 4.3-6.1 368) Credit Product Analyst ID - [id number] NATRIURETIC FACTOR (BNP)2023-01-24 07:08:18 Test Item Value Reference Range Interpretation Comments B-TYPE NATRIURETIC PEPTIDE (BEAKER) 13 pg/mL 0-100 (test code = 700) Credit Product Analyst ID - [id number] FUNCTION [id number] 07:03:08 Test Item Value Reference Range Interpretation [...] code = 345 U/L 6-50 H 347) Credit Product Analyst ID - [id number] METABOLIC [id number] 07:02:04 Test Item Value Reference Range Interpretation [...] not appl icable for dialysis patien ts Credit Product Analyst ID - [id number] W/PLT COUNT & AUTO [id number] 06:58:17 Test Item Value Reference Range Interpretation [...] (BEAKER) (test code = 2801) LACTIC ACID, [id number] 06:55:44 Test Item Value Reference Range Interpretation Comments LACTATE BLOOD VENOUS 2.31 mmol/L 0.50-2.20 H Specime n markedly (2) (BEAKER) (test hemolyzed code = 2872) Credit Product Analyst ID - [id number] gas, [id number] 06:36:46 Test Item Value Reference Range Interpretation Comments pH, Arterial (test code 7.48 7.35-7.45 H = 2744-1) pCO2, Arterial (test 32 See_Comment L [Autom ated message] code = 2018-) The system [facility] generated this result transmit annie reference range : 35 - 45 mm Hg. The reference range was not used to interpret this result as normal/abnormal . pO2, Arterial (test 76 See_Comment L [Automa annie message] code = 2703-7) The system [facility] generated this result transmit annie reference range : 80 - 90 mm Hg. The reference range was not used to interpret this result as normal/abnormal . O2 Sat, Arterial (test 96.2 % 96.0-97.0 code = 2708-6) HCO3, Arterial (test 23 mmol/L - code = 1960-4) Base Excess, Arterial 0.6 mmol/L -2.0-3.0 (test code = 1925-7) Patient Temperature 37.0 (test code = 8310-5) FIO2 (test code = 1819) 60.0 Lab Interpretation Abnormal (test code = 56526-0) [facility], [id number] 06:36:46 Test Item Value Reference Range Interpretation Comments pH, Arterial (test code 7.48 7.35-7.45 H = 2744-1) pCO2, Arterial (test 32 See_Comment L [Autom ated message] code = 2018-) The system [facility] generated this result transmit annie reference range : 35 - 45 mm Hg. The reference range was not used to interpret this result as normal/abnormal . pO2, Arterial (test 76 See_Comment L [Automa annie message] code = 2703-7) The system [facility] generated this result transmit annie reference range : 80 - 90 mm Hg. The reference range was not used to interpret this result as normal/abnormal . O2 Sat, Arterial (test 96.2 % 96.0-97.0 code = 2708-6) HCO3, Arterial (test 23 mmol/L -29 code = 1960-4) Base Excess, Arterial 0.6 mmol/L -2.0-3.0 (test code = 1925-7) Patient Temperature 37.0 (test code = 8310-5) FIO2 (test code = 1819) 60.0 Lab Interpretation Abnormal (test code = 09235-3) [facility], [id number] 06:36:46 Test Item Value Reference Range Interpretation Comments pH, Arterial (test code 7.48 7.35-7.45 H = 2744-1) pCO2, Arterial (test 32 See_Comment L [Autom ated message] code = 2019-8) The system [employer] generated this result transmit annie reference range : 35 - 45 mm Hg. The reference range was not used to interpret this result as normal/abnormal . pO2, Arterial (test 76 See_Comment L [Automa annie message] code = 2703-7) The system [employer] generated this result transmit annie reference range : 80 - 90 mm Hg. The reference range was not used to interpret this result as normal/abnormal . O2 Sat, Arterial (test 96.2 % 96.0-97.0 code = 2708-6) HCO3, Arterial (test 23 mmol/L -29 code = 1960-4) Base Excess, Arterial 0.6 mmol/L -2.0-3.0 (test code = 1925-7) Patient Temperature 37.0 (test code = 8310-5) FIO2 (test code = 1819) 60.0 Lab Interpretation Abnormal (test code = 05834-4) [facility] GAS, [id number] 06:36:46 Test Item Value Reference Range Interpretation [...] (BEAKER) (test code = 1819) 60.0 POCT-GLUCOSE [id number] 05:59:39 Test Item Value Reference Range Interpretation Comments POC-GLUCOSE METER 188 mg/dL 70-110 H : Notified RN/MD: TESTED (BEAKER) (test code AT [facility] [address] [facility] = 1538) [facility] [place] [address]: Credit Product Analyst/Techni sarah ID = [id number] for Mari Montaño
[2023-05-18] MEDS ORDERED: FENTANYL CITR 100 MCG/2 ML ONE (09:47)
--- NOTE | 2023-05-18 10:06 | RAD REPORT ---
EXAM DESCRIPTION: CT - Spine Lumbar Wo Con - 05/18/2023 9:38 am CLINICAL HISTORY: Radiculopathy. LOWER BACK PAIN COMPARISON: No comparisons TECHNIQUE: Axial noncontrast CT imaging of the lumbar spine was performed with coronal and sagittal re-formatted images. All CT scans are performed using dose optimization technique as appropriate and may include automated exposure control or mA/KV adjustment according to patient size. FINDINGS: Acute central compression fracture is seen affecting the L2 vertebral body. There is appro ximately 50-60% loss in vertebral body height. Posterior elements appear intact. No significant canal compromise. There is a mild to moderate amount of paraspinal edema and thickening. Grade 1 anterolisthesis of L5 on S1 is present with bilateral spondylolysis. Note is made of partially visualized sigmoid diverticulosis. IMPRESSION: Acute compression fracture predominately centrally affects the L2 vertebral body. There is loss of vertebral body height of 50-60%. No significant canal compromise is seen. No posterior element involvement of this fracture. Mild anterolisthesis of L5 on S1 with bilateral spondylolysis.
--- NOTE | 2023-05-18 10:41 | ER ---
Nurse's Notes [facility] Name: Blake Nixon Age: 73 yrs Sex: Male : 1950 Arrival Date: 05/18/2023 Time: 09:02 Bed 5 Private MD: Diagnosis: Fracture of lumbar vertebra;Fall on same level from slipping, tripping and stumbling without subsequent striking against object Presentation: 05/18 09:14 Chief complaint: Patient states: Fell yesterday while letting out the cats. Pain to ll1 back and L buttocks since. Coronavirus screen: Vaccine status: Patient reports being unvaccinated. Client denies travel out of the [place] in the last 14 days. At this time, the client does not indicate any symptoms associated with coronavirus-19. Ebola Screen: Patient denies travel to an Ebola-affected area in the 21 days before illness onset. Initial Sepsis Screen: Does the patient meet any 2 criteria? No. Patient's initial sepsis screen is negative. Does the patient have a suspected source of infection? Yes: Bone or joint infection. Risk Assessment: Do you want to hurt yourself or someone else? Patient reports no desire to harm self or others. Onset of symptoms was May 17, 2023. 09:14 Method Of Arrival: Wheelchair ll1 09:14 Acuity: GISSEL 4 ll1 Triage Assessment: 09:15 General: Appears uncomfortable, Behavior is calm, cooperative, appropriate for age. ll1 Pain: Complains of pain in back Pain currently is 10 out of 10 on a pain scale. Quality of pain is described as aching, crampy, throbbing. Musculoskeletal: Reports pain in back and L buttocks. Injury Description: Bruise. Historical: - Allergies: 09:08 No Known Allergies; ll1 - PMHx: 09:08 CVA; Hyperlipidemia; Hypertension; ll1 - PSHx: 09:08 Cholecystectomy; knee; Shoulder; ll1 - Immunization history:: Adult Immunizations up to date. - Social history:: Smoking status: Patient denies any tobacco usage or history of. Screenin:12 [facility] ED Fall Risk Assessment (Adult) History of falling in the last 3 months, rs5 including since admission Yes- single mechanical fall (1 pt) Confusion or Disorientation No (0 pts) Intoxicated or Sedated No (0 pts) Impaired Gait Yes (1 pt) Mobility Assist Device Used Yes (1 pt) Altered Elimination No (0 pt) Score/Fall Risk Level 3 or more points = High Risk Oriented to surroundings, Maintained a safe environment, Educated pt \T\ family on fall prevention, incl call for assistance when getting out of bed. 09:12 Abuse screen: Denies threats or abuse. Nutritional screening: No deficits noted. rs5 Tuberculosis screening: No symptoms or risk factors identified. Assessment: 09:12 General: Appears in no apparent distress. comfortable, Behavior is calm, cooperative. rs5 09:12 Pain: Complains of pain in left hip, lower back Pain does not radiate. Pain currently rs5 is 8 out of 10 on a pain scale. Quality of pain is described as aching, Pain began 1 day ago. Is continuous, Aggravated by repositioning. Neuro: Level of Consciousness is awake, alert, obeys commands, Oriented to person, place, time, situation. Neuro:. Cardiovascular: Rhythm is regular. Respiratory: Airway is patent Respiratory effort is even, unlabored, Respiratory pattern is regular, symmetrical. GI: Abdomen is round non-distended, Abd is soft and non tender X 4 quads. : No signs and/or symptoms were reported regarding the genitourinary system. EENT: No signs and/or symptoms were reported regarding the EENT system. Derm: Skin is pink, warm \T\ dry. Musculoskeletal: Range of motion: limited in left arm, left leg Pt reports having a stroke several years ago and currently ambulates with a cane. 5/5 right leg and foot strength. 5/5 right arm and hand strength. 4/5 left leg and foot strength. 1/5 left arm and hand strength. 09:20 Reassessment: Provider at bedside . rs5 09:25 Reassessment: Pt taken for cat scan. rs5 10:05 Reassessment: Patient and/or family updated on plan of care and expected duration. Pain rs5 level reassessed. Patient is alert, oriented x 3, equal unlabored respirations, skin warm/dry/pink. Reassessment: Patient states feeling better. Pain: Complains of pain in lower back Pain radiates to left hip Pain currently is 2 out of 10 on a pain scale. Quality of pain is described as aching, Is continuous. 10:38 Reassessment: Pt reports wanting to leave, provider notified. rs5 10:45 Reassessment: Pt up for discharge. rs5 Vital Signs: 09:14 Weight 99.34 kg; Height 6 ft. 4 in. ; Pain 10/10; ll1 09:15 BP 128 / 93; Pulse 95; Resp 17; Pulse Ox 99% on R/A; rs5 09:32 BP 146 / 103; Pulse 92; Resp 17; Temp 98.3; Pulse Ox 99% ; rs5 10:30 BP 143 / 90; Pulse 92; Resp 17; Pulse Ox 96% on R/A; rs5 09:14 Body Mass Index 26.66 (99.34 kg, 193.04 cm) ll1 09:14 Pain Scale: Adult ll1 ED Course: 09:07 Patient arrived in ED. mg5 09:08 Kalyan Hawkins is Attending Physician. ci 09:08 Arm band placed on Patient placed in an exam room, on a stretcher. ll1 09:10 Jann Jordan, RN is Primary Nurse. rs5 09:12 Patient has correct armband on for positive identification. Bed in low position. Call rs5 light in reach. Side rails up X2. 09:15 Triage completed. ll1 09:37 CT Lumbar Spine Wo Con In Process Unspecified. EDMS 10:45 Provided Education on: na. ko1 10:45 No provider procedures requiring assistance completed. ko1 10:47 Patient did not have IV access during this emergency room visit. ko1 Administered Medications: 09:44 Drug: fentaNYL (PF) IM 50 mcg IM once Route: IM; Site: right deltoid; rs5 10:05 Follow up: Response: No adverse reaction; Pain is decreased rs5 Medication: 10:45 VIS not applicable for this client. ko1 Outcome: 10:41 Discharge ordered by MD. ci 10:48 Discharged to home via wheelchair, rs5 10:48 Condition: stable 10:48 Discharge instructions given to patient, Instructed on discharge instructions, follow up and referral plans. medication usage, Demonstrated understanding of instructions, follow-up care, medications, Prescriptions given X 1, 10:50 Patient left the ED. rs5 Signatures: Dispatcher [employer] EDMS Albina Jeffers RN RN ll1 Gilma Prieto RN RN ko1 Jann Jordan BRANDI RN rs5 Nesha Urena mg5 Iheonunekwu, Kalyan moscoso
--- NOTE | 2023-05-18 10:41 | EDPHYS ---
Physician Documentation [facility] Name: Blake Nixon Age: 73 yrs Sex: Male : 1950 Arrival Date: 05/18/2023 Time: 09:02 Bed 5 Private MD: ED Physician Kalyan Hawkins HPI: 05/18 09:27 This 73 yrs old Male presents to ER via Wheelchair with complaints of Fall Injury, Pain ci All Over. 09:27 Patient is a 73-year-old male with PMH hypertension, hyperlipidemia, CVA with ci left-sided residual deficits who presents to the ED with chief complaint of low back pain s/p fall that occurred yesterday. Patient reports he was trying to take his cats out and slipped and fell. No head strike, no LOC, not on blood thinners. He denies chest pain, palpitations, shortness of breath prior to fall. Low back pain is across back, aching, worse with standing and ambulation, relieved by sitting. Patient took 2 tylenol #3 yesterday with no improvement. 09:27 Patient denies bowel/bladder dysfunction, denies fever, IVDU, history of cancer. ci Historical: - Allergies: 09:08 No Known Allergies; ll1 - PMHx: 09:08 CVA; Hyperlipidemia; Hypertension; ll1 - PSHx: 09:08 Cholecystectomy; knee; Shoulder; ll1 - Immunization history:: Adult Immunizations up to date. - Social history:: Smoking status: Patient denies any tobacco usage or history of. ROS: 09:27 Constitutional: Negative for body aches, fatigue, fever, ci 09:27 Cardiovascular: Negative for chest pain, edema, palpitations, :27 Respiratory: Negative for cough, hemoptysis, pleurisy, shortness of breath, 09:27 Abdomen/GI: Negative for abdominal pain, nausea and vomiting, :27 Back: Positive for pain with movement, :27 MS/extremity: Negative for abrasion, decreased range of motion, deformity, ecchymosis, paresthesias, :27 Skin: Negative for abrasions, rash, swelling, 10:27 Back: Positive for ci 10:27 MS/extremity: Positive for Negative for Exam: 09:31 Constitutional: This is a well developed, well nourished patient who is awake, alert, ci and in no acute distress. Head/Face: Normocephalic, atraumatic. Eyes: Pupils equal round and reactive to light, extra-ocular motions intact. Lids and lashes normal. Conjunctiva and sclera are non-icteric and not injected. Cornea within normal limits. Periorbital areas with no swelling, redness, or edema. ENT: Nares patent. No nasal discharge, no septal abnormalities noted. Tympanic membranes are normal and external auditory canals are clear. Oropharynx with no redness, swelling, or masses, exudates, or evidence of obstruction, uvula midline. Mucous membranes moist. Neck: Trachea midline, no thyromegaly or masses palpated, and no cervical lymphadenopathy. Supple, full range of motion without nuchal rigidity, or vertebral point tenderness. No Meningismus. Chest/axilla: Normal chest wall appearance and motion. Nontender with no deformity. No lesions are appreciated. Cardiovascular: Regular rate and rhythm with a normal S1 and S2. No gallops, murmurs, or rubs. No JVD. No pulse deficits. Respiratory: Lungs have equal breath sounds bilaterally, clear to auscultation and percussion. No rales, rhonchi or wheezes noted. No increased work of breathing, no retractions or nasal flaring. Abdomen/GI: Soft, non-tender, with normal bowel sounds. No distension or tympany. No guarding or rebound. No evidence of tenderness throughout. Back: No reproducible C/T/L spinal tenderness, no step-offs or deformity. No costovertebral tenderness. Full range of motion. Mild bilateral lower paraspinal lumbar tenderness to palpation. No erythema, increased warmth. Skin: Warm, dry with normal turgor. Normal color with no rashes, no lesions, and no evidence of cellulitis. MS/ Extremity: Pulses equal, no cyanosis. Neurovascular intact. Full, normal range of motion. Neuro: Awake and alert, GCS 15, oriented to person, place, time, and situation. Cranial nerves II-XII grossly intact. Motor strength 5/5 in all extremities. Sensory grossly intact. Cerebellar exam normal. Normal gait. Psych: Awake, alert, with orientation to person, place and time. Behavior, mood, and affect are within normal limits. Vital Signs: 09:14 Weight 99.34 kg; Height 6 ft. 4 in. ; Pain 10/10; ll1 09:15 BP 128 / 93; Pulse 95; Resp 17; Pulse Ox 99% on R/A; rs5 09:32 BP 146 / 103; Pulse 92; Resp 17; Temp 98.3; Pulse Ox 99% ; rs5 10:30 BP 143 / 90; Pulse 92; Resp 17; Pulse Ox 96% on R/A; rs5 09:14 Body Mass Index 26.66 (99.34 kg, 193.04 cm) ll1 09:14 Pain Scale: Adult ll1 MDM: 09:09 Patient medically screened. ci 09:31 Differential diagnosis: abrasion, contusion, fracture, sprain, strain. Data reviewed: ci vital signs, nurses notes, old medical records, Patient was seen in the ED on 05/11/2023 similar complaints, fall, pain. I considered the following discharge prescriptions or medication management in the emergency department Medications were administered in the Emergency Department. See MAR. Care significantly affected by the following chronic conditions: Hypertension, Hyperlipidemia, CVA with left-sided residual deficits. ED course: Patient is nontoxic and in no apparent distress. His back is atraumatic on exam, he has no reproducible tenderness on exam however he tells me the pain is on the inside. Low suspicion for cauda equina, epidural abscess as he denies fevers, denies bowel/bladder dysfunction, denies red flag symptoms. Plan for pain control, CT lumbar spine given fall. Final disposition is pending imaging.. 10:13 Response to treatment: the patient's symptoms have markedly improved after treatment. ci 10:37 Special discussion: Based on the history and exam findings, there is no indication for ci further emergent testing or inpatient evaluation. I discussed with the patient/guardian the need to see the back specialist for further evaluation of the symptoms. nNsgy/ortho spine, discussed frequent falls and need for fall prevention. 10:37 Counseling: I had a detailed discussion with the patient and/or guardian regarding ci radiology results, the need for outpatient follow up. 10:37 Special discussion: Based on the history and exam findings, there is no indication for ci further emergent testing or inpatient evaluation. Needs to purchase back brace. Pt verbalizes understanding, reports pain is improved, requesting discharge. Patient ambulated out of the ED with a cane, ambulates with a cane at baseline. 10:37 ED course: Patient dcd with written prescription for percocet, pharmacy unable to fill, ci provider does not have eprescribe at this facility. Percocet changed to Tylenol #3 1 tab q6hrs PRN pain #12 tabs. 05/18 09:26 Order name: CT Lumbar Spine Wo Con; Complete Time: 10:10 ci 05/18 10:11 Interpretation: Abnormal: Per Radiologist's finding(s): IMPRESSION: Acute compression ci fracture predominately centrally affects the L2 vertebral body. There is loss of vertebral body height of 50-60%. No significant canal compromise is seen. No posterior element involvement of this fracture. Mild anterolisthesis of L5 on S1 with bilateral spondylolysis. Administered Medications: 09:44 Drug: fentaNYL (PF) IM 50 mcg IM once Route: IM; Site: right deltoid; rs5 10:05 Follow up: Response: No adverse reaction; Pain is decreased rs5 Disposition Summary: 05/18/23 10:41 Discharge Ordered Notes: Location: Home ci Condition: Stable ci Diagnosis - Fracture of lumbar vertebra ci - Fall on same level from slipping, tripping and stumbling without subsequent ci striking against object Followup: ci - With: Private Physician - When: 48 Hours - Reason: Recheck today's complaints, Re-evaluation by your physician Discharge Instructions: - Discharge Summary Sheet ci - Lumbar Spine Fracture ci Forms: - Medication Reconciliation Form ci - Thank You Letter ci - Antibiotic Education ci - Prescription Opioid Use ci - Patient Portal Instructions ci - Leadership Thank You Letter ci Prescriptions: - Percocet 5-325 mg Oral tablet - take 1 tablet ORAL route every 6 hours As needed; 12 tablet; Refills: 0, ci Product Selection Permitted Signatures: Dispatcher [employer] EDMS Albina Jeffers RN RN ll1 Jann Jordan RN RN rs5 Kalyan Hawkins ci Corrections: (The following items were deleted from the chart) 10:13 10:11 Per Radiologist's finding(s): IMPRESSION: Acute compression fracture ci predominately centrally affects the L2 vertebral body. There is loss of vertebral body height of 50-60%. No significant canal compromise is seen. No posterior element involvement of this fracture. Mild anterolisthesis of L5 on S1 with bilateral spondylolysis. ci 10:27 09:27 Patient is a 73-year-old male with PMH hypertension, hyperlipidemia, CVA with ci left-sided residual deficits who presents to the ED with chief complaint of low back pain s/p fall that occurred yesterday. Patient reports he was trying to take his cats out and slipped and fell. No head strike, no LOC, not on blood thinners. He denies chest pain, palpitations, shortness of breath prior to fall. Low back pain is across back, aching, worse with standing and ambulation, relieved by sitting. Patient took 2 hydrocodone's yesterday with no improvement. ci 10:28 09:27 MS/extremity: Positive for deformity, ecchymosis, laceration, paresthesias, ci ci 11:33 10:37 Special discussion: Based on the history and exam findings, there is no ci indication for further emergent testing or inpatient evaluation. Needs to purchase Back brace, ci
[2023-05-18 11:15] VITALS: TEMP 98.3
[2023-05-18 11:16] VITALS: BP 143/90; O2SAT 96
== END 2023-05-18 10:50 | disposition home or self-care (01) ==
LOC: ER 09:02
DX: S32.029A Unspecified fracture of second lumbar vertebra, initial encounter for closed fracture (principal); W01.0XXA Fall on same level from slipping, tripping and stumbling without subsequent striking against object, initial encounter
CPT/HCPCS: 72131; J3010

== ENCOUNTER 2023-06-20 09:37 | Emergency (ER) | payer OTHER ==
--- OUTSIDE RECORDS SUMMARY | 2023-06-20 09:43 | XMS REPORT | Continuity of Care Document ---
:1950 Author Organization [facility] t Address [address] [facility] [address] [place] [address] Care Team Providers Name Role Phone Clarisa [...] Type Policy Number Effective Date Expiration Date [facility] [id number] (MEDICARE REPLACEMENT/ADVANTA GE - PPO) MEDICARE B-[place]: [id number] 2016 [employer] 00:00:00 Problems Condition Condition Condition Status Onset Resolution Last Treating Co mments Source Name Details Category Date Date Treatment Clinician Date Sepsis Sepsis Disease [facility] Acute Acute Disease [facility] respir[facility] respirator nce 01-24 Tabby kes y failure y failure 00:00: Medi trudy with with 00 Center hypoxia hypoxia Allergies, Adverse Reactions, Alerts Allergy Allergy Status Severity Reaction(s) Onset Inactive Treating Comm ents Source Name Type Date Date Clinician No Known DA Active [facility] [place] [facility] No Known DA Active U [facility] 03-03 [place] 00:00: [place] 00 [facility] No Known DA Active U [facility] Contrast 08-31 [place] Allergie 00:00: Orthope s 00 dic Hospita l No Known DA Active U 2006- [facility] Drug 08-31 [place] Allergie 00:00: [facility]ope [facility] 00 dic [facility] No Known DA Active U 0 [facility] Food 08-31 [place] Allergie 00:00: Orthope s 00 dic [facility]osp[facility] No Known DA Active U 2006-0 [facility] Other 08-31 [place] Allergie 00:00: [facility]ope [facility] 00 dic [facility]osp[facility] NO KNOWN Allergy Active [facility] [place] Social History Social Habit Start Date Stop Date Quantity Comments Source History [facility] Tobacco use and 2023-01-24 2023-01-[address] [facility] exposure 00:[facility]00 00:00:00 non-user Medical Center History [facility] 2023-01-24 2023-01-[address] [facility] Housing Unable to 00:00:00 00:00:00 Medical Center Pay History [facility] 2023-01-24 2023-01-[address] [facility] Housing Places 00:00:00 00:00:00 Medical Ce nter Lived History [facility] 2023-01-24 2023-01-[address] [facility] Housing Homeless 00:00:00 00:00:00 Medical Center Last Year Alcohol intake 2023-01-24 2023-01-[address] [facility] 00:00:00 00:00:00 non-drinker Medical Cente r (finding) History [facility] 2023-01-24 2023-01-[address] [facility] Transport Med 00:00:00 00:00:[address] Sex Ass[birth year] At [birth year] [facility] nicolle 00:00:00 00:00:00 Medical Center Smoking Status Start Date Stop Date Source Never smoked tobacco [facility] Medications Ordered Filled Start Stop Current Ordering Indication Dosage Frequency Signature Comments Components Source Medication Medication Date Date Medication? Clinician (SIG) Name Name apixaban 2022-0 2023- No 5mg Q.5D Take [address] [facility] [address] (ELIQUIS) 5 6-03 07-03 tablet (5 Tabby kes mg Tab 00:00: 23:59 mg total) Medic al tablet 00 :00 by mouth Center in the morning and 1 tablet (5 mg total) before bedtime. Do all this for 30 days. apixaban 3-0 2023- No 5mg Q.5D Take [address] [facility] [address] (ELIQUIS) 5 6-03 07-03 tablet (5 Tabby kes mg Tab 00:00: 23:59 mg total) Medic al tablet 00 :00 by mouth Center in the morning and 1 tablet (5 mg total) before bedtime. Do all this for 30 days. apixaban 3-0 2023- No 5mg Q.5D Take [address] (ELIQUIS) 5 6-03 07-03 tablet (5 Tabby kes mg Tab 00:00: 23:59 mg total) Medic al tablet 00 :00 by mouth Center in the morning and 1 tablet (5 mg total) before bedtime. Do all this for 30 days. apixaban 3-0 2023- No 5mg Q.5D Take [address] (ELIQUIS) 5 6-03 07-03 tablet (5 Tabby kes mg Tab 00:00: 23:59 mg total) Medic al tablet 00 :00 by mouth Center in the morning and 1 tablet (5 mg total) before bedtime. Do all this for 30 days. apixaban 3-0 2023- No 5mg Q.5D Take [address] (ELIQUIS) 5 6-03 07-03 tablet (5 Tabby kes mg Tab 00:00: 23:59 mg total) Medic al tablet 00 :00 by mouth Center in the morning and 1 tablet (5 mg total) before bedtime. Do all this for 30 days. zinc oxide 2023-0 2023- No 1{appli Q.5D Apply [address] [facility] [address] 16 % Oint 6-03 06-13 cation} applicatio [facility] 00:00: 23:59 n Medical 00 :00 topically Center in the morning and 1 applicatio n before bedtime. Do all this for 10 days. zinc oxide 2022- No 1{appli Q.5D Apply [address] [facility] 16 % Oint 6-03 06-13 cation} applicatio [facility] 00:00: 23:59 n Medical 00 :00 topically Center in the morning and 1 applicatio n before bedtime. Do all this for 10 days. zinc oxide 2022- No 1{appli Q.5D Apply [address] [facility] 16 % Oint 6-03 06-13 cation} applicatio [facility] 00:00: 23:59 n Medical 00 :00 topically Center in the morning and 1 applicatio n before bedtime. Do all this for 10 days. zinc oxide 2022- No 1{appli Q.5D Apply [address] [facility] 16 % Oint 6-03 06-13 cation} applicatio [facility] 00:00: 23:59 n Medical 00 :00 topically Center in the morning and 1 applicatio n before bedtime. Do all this for 10 days. zinc oxide 2022- No 1{appli Q.5D Apply [address] [facility] 16 % Oint 6-03 06-13 cation} applicatio [facility] 00:00: 23:59 n Medical 00 :00 topically Center in the morning and 1 applicatio n before bedtime. Do all this for 10 days. senna-docus 2022- No 1{tbl} Take [address] ate 6- 06-08 tablet by Skye (SENOKOT S) 00:00: 23:59 mouth Medi trudy 8.6-50 mg 00 :00 every Center per tablet night as needed for Constipati on for up to 5 days. amoxicillin 2022- No 1{tbl} Q.5D Take [address] -clavulanat 6- 06-08 tablet by Tabby escamilla 00:00: 23:59 mouth in Medical (AUGMENTIN) [...] HI St -clavulanat 6-03 06-08 tablet by Tabby kes e 00:00: 23:59 mouth in Medical [...] HI St -clavulanat 6-03 06-08 tablet by Tabby kes e 00:00: 23:59 mouth in Medical [...] HI St -clavulanat 6-03 06-08 tablet by Tabby kes e 00:00: 23:59 mouth in Medical (AUGMENTIN) 00 :00 the Center 875-125 mg morning per tablet and 1 tablet before bedtime. Do all this for 5 days. senna-docus 2022- No 1{tbl} Take [address] ate 6-03 06-08 tablet by Skye (SENOKOT S) 00:00: 23:59 mouth Medi trudy 8.6-50 mg 00 :00 every Center per tablet night as needed for Constipati on for up to 5 days. amoxicillin 2022- No 1{tbl} Q.5D Take [address] -clavulanat 01-29 tablet by Tabby escamilla 00:00: 23:59 mouth in Medical (AUGMENTIN) [...] cm Heart rate 2023-01-29 08:50:00 89 /min [facility] Respiratory rate 2023-01-29 08:50:00 20 /min [facility] Oxygen saturation in 2023-01-29 08:50:00 97 /min [facility] Arterial blood by Medical Ce nter Pulse oximetry Body temperature 2023-01-29 07:36:07 36.33 [place] [facility] Systolic blood 2023-01-29 07:35:50 114 mm[Hg] [facility] Diastolic blood 2023-01-29 07:35:50 75 mm[Hg] [facility] Body weight 2023-01-26 05:00:00 113.218 kg [facility] BMI 2023-01-26 05:00:00 32.93 kg/m2 [facility] Body height 2023-01-24 05:45:00 185.4 cm [facility] Procedures Procedure Date / Time Performing Clinician Source Performed CBC W/PLT COUNT & AUTO 2023-01-29 05:28:00 Kasmai, [facility] COMPREHENSIVE METABOLIC 2023-01-29 05:28:00 [facility] CBC W/PLT COUNT & AUTO 2023-01-29 05:28:00 Segundolacie [facility] POCT-GLUCOSE METER 2023-01-29 05:27:00 Segundolacie [facility] POCT-GLUCOSE METER 2023-01-28 20:33:00 Marianojefferson [facility] POCT-GLUCOSE METER 2023-01-28 16:12:00 [facility] POCT-GLUCOSE METER 2023-01-28 12:06:00 [facility] CBC W/PLT COUNT & AUTO 2023-01-28 05:07:00 [facility] COMPREHENSIVE METABOLIC 2023-01-28 05:07:00 [facility] CBC W/PLT COUNT & AUTO 2023-01-28 05:07:00 Segundookjefferson [facility] POCT-GLUCOSE METER 2023-01-27 21:12:00 Segundolacie [facility] POCT-GLUCOSE METER 2023-01-27 16:48:00 Amelia [facility] AMMONIA 2023-01-27 16:01:00 Amelia [facility] HEREDITARY HEMOCHROMATOSIS 2023-01-27 16:01:00 Franklin De Santiago [facility] XR CHEST 1 VIEW PORTABLE / 2023-01-27 13:38:[address] [facility] POCT-GLUCOSE METER 2023-01-27 12:47:00 Amelia [facility] POCT-GLUCOSE METER 2023-01-27 05:41:00 Amelia [facility] BASIC METABOLIC PANEL 2023-01-27 05:35:00 Sherry Pimentel [facility] CBC W/PLT COUNT & AUTO 2023-01-27 05:35:[address] [facility] HEPATIC FUNCTION PANEL 2023-01-27 05:35:00 [facility] W/[facility]T COUNT & AUTO 2023-01-27 05:35:[address] [facility] COVID ANTIGEN 2023-01-26 22:10:00 [place]hy [facility] CT CHEST WITHOUT IV 2023-01-26 18:42:00 Leny Warner [facility] POCT-GLUCOSE METER 2023-01-26 16:33:00 Mariano [facility] POCT-GLUCOSE METER 2023-01-26 12:28:00 [facility] MR ABDOMEN WITHOUT IV 2023-01-26 09:27:00 [facility]SE [facility] 2023-01-26 06:26:00 Amelia [facility] BASIC METABOLIC PANEL 2023-01-26 04:30:00 Sherry Pimentel [facility] CBC W/PLT COUNT & AUTO 2023-01-26 04:30:[address] [facility] HEPATIC FUNCTION PANEL 2023-01-26 04:30:00 [facility] W/[facility]T COUNT & AUTO 2023-01-26 04:30:[address] [facility] POCT-GLUCOSE METER 2023-01-26 01:29:00 Amelia [facility] POCT-GLUCOSE METER 2023-01-25 21:37:00 Amelia [facility] POCT-GLUCOSE METER 2023-01-25 18:25:00 Franklin De Santiago [facility] ACTIN (SMOOTH MUSCLE) 2023-01-25 18:22:00 Amanda Miliseth [facility] ANTIBODY, IGG Medical Center HC LAB FLUORESC AB SCRN EA 2023-01-25 18:22:00 Aissatou Patel [facility] IRON, TIBC, % SAT. 2023-01-25 18:22:00 [facility] (WITHOUT FERRITIN) Medical Cente r FERRITIN 2023-01-25 18:22:00 Amanda [facility] [id number]-2-[id number]\, 2023-01-25 18:22:00 Amanda [facility] SERUM [facility] CERULOPLASMIN 2023-01-25 18:22:00 [facility] ANTI-NUCLEAR ANTIBODY 2023-01-25 18:22:00 Amanda Midinhtiffanie [facility] (NATACHA) [facility] MITOCHONDRIAL AB SCREEN 2023-01-25 18:22:00 Amanda, [facility] fany [facility] MITOCHONDRIAL AB TITER 2023-01-25 18:22:00 [facility] VENOUS DOPPLER ARMS 2023-01-25 18:10:00 Bessie Cleary [facility] 2D ECHO W/ DOPPLER 2023-01-25 16:20:00 [facility]le [facility] (CW/PW/COLOR) [facility] PROCALCITONIN 2023-01-25 14:03:00 Roxie Gomez [facility] POCT-GLUCOSE METER 2023-01-25 12:35:00 [facility] XR CHEST 1 VIEW PORTABLE / 2023-01-25 10:44:[address] [facility] TSH/FREE T4 IF INDICATED 2023-01-25 10:42:00 Bessie Cleary [facility] VENOUS DOPPLER LEGS 2023-01-25 05:53:00 Georgette [facility] BILATERAL [facility] BASIC METABOLIC PANEL 2023-01-25 03:11:00 Sherry Pimentel [facility] CBC W/PLT COUNT & AUTO 2023-01-25 03:11:[address] [facility] HEPATIC FUNCTION PANEL 2023-01-25 03:11:00 Monie [facility] PERIPHERAL BLOOD SMEAR - 2023-01-25 03:11:00 Sherry Pimentel [facility] CBC W/PLT COUNT & AUTO 2023-01-25 03:11:[address] [facility] (MANUAL DIFFERENTIAL) 2023-01-25 03:11:00 Sherry Pimentel [facility] LACTIC ACID, VENOUS 2023-01-24 23:39:00 [facility] LACTIC ACID, VENOUS 2023-01-24 20:26:00 [facility] POCT-GLUCOSE METER 2023-01-24 18:00:00 Georgette [facility] US ABDOMEN LIMITED 2023-01-24 17:21:00 [facility] LACTIC ACID, VENOUS 2023-01-24 15:27:00 [facility] BLOOD GAS, VENOUS 2023-01-24 15:27:00 [facility] POCT-GLUCOSE METER 2023-01-24 13:08:00 Georgette [facility] LACTIC ACID, VENOUS 2023-01-24 12:01:00 [facility] TROPONIN I 2023-01-24 12:01:00 [facility] XR CHEST 1 VIEW PORTABLE / 2023-01-24 11:15:[address] [facility] LACTIC ACID, VENOUS 2023-01-24 10:13:00 Gomez, Roxie [facility] AMMONIA 2023-01-24 08:15:00 Calle [facility] TROPONIN I 2023-01-24 08:15:00 Lima Lomax [facility] SALICYLATE LEVEL 2023-01-24 07:59:00 Georgette [facility] POCT-GLUCOSE METER 2023-01-24 07:51:00 Georgette [facility] RAPID DRUG SCREEN, URINE 2023-01-24 06:59:00 Georgette [facility] URINALYSIS W/ REFLEX URINE 2023-01-24 06:59:[address] [facility] ACETAMINOPHEN LEVEL 2023-01-24 06:58:[address] [facility] BLOOD CULTURE 2023-01-24 06:46:00 Sherry Pimentel [facility] BLOOD CULTURE 2023-01-24 06:29:00 Sherry Pimentel [facility] CBC W/PLT COUNT & AUTO 2023-01-24 06:27:[address] [facility] LACTIC ACID, VENOUS 2023-01-24 06:27:00 Sherry Pimentel [facility] PROTHROMBIN TIME/INR 2023-01-24 06:27:00 Sherry Pimentel [facility] HEMOGLOBIN A1C 2023-01-24 06:27:00 Sherry Pimentel [facility] B-TYPE NATRIURETIC FACTOR 2023-01-24 06:27:00 Sherry Pimentel [facility] (BNP) [facility] D-DIMER 2023-01-24 06:27:00 Sherry Pimentel [facility] HEPATIC FUNCTION PANEL 2023-01-24 06:27:[address] [facility] BASIC METABOLIC PANEL 2023-01-24 06:27:00 Georgette [facility] HEPATITIS PANEL, ACUTE 2023-01-24 06:27:[address] [facility] LIPID PANEL 2023-01-24 06:27:00 [place] Lomax [facility] CBC W/PLT COUNT & AUTO 2023-01-24 06:27:[address] [facility] ECG 12-LEAD 2023-01-24 06:10:52 Sherry Pimentel [facility] ECG 12-LEAD 2023-01-24 06:10:52 Unknown, Hl7 Doctor [facility] ECG 12-LEAD 2023-01-24 06:10:52 Unknown, Hl7 Doctor [facility] BLOOD GAS, ARTERIAL 2023-01-24 06:05:[address] [facility] POCT-GLUCOSE METER 2023-01-24 05:47:00 Georgette [facility] EKG-SCANNED 2023-01-24 00:00:00 [facility] Plan of Care Planned Activity Planned Date [...] [facility] Test 00:00:00 2) [code = SHINGLES [facility] VACCINES (1 of 2)] Future Scheduled 2001 SHINGLES VACCINES ([address] [facility] Test 00:00:00 2) [code = SHINGLES Medical Center VACCINES (1 of 2)] Future Scheduled 2001 SHINGLES VACCINES ([address] [facility] Test 00:00:00 2) [code = SHINGLES Medical Center VACCINES (1 of 2)] Future Scheduled 2001 SHINGLES VACCINES ([address] [facility] Test 00:00:00 2) [code = SHINGLES Medical Center VACCINES (1 of 2)] Future Scheduled 2001 SHINGLES VACCINES ([address] [facility] Test 00:00:00 2) [code = SHINGLES Medical Center VACCINES (1 of 2)] Future Scheduled [...] [facility]ukes Test 00:00:00 [code = CT Colonography [facility] (combo)] Future Scheduled 1950 Screening [facility] malignant [facility] Test 00:00:00 neoplasm of colon Medical Ce nter (procedure) [code = 169391193] Future Scheduled 1950 Screening for malignant [facility] Test 00:00:00 neoplasm of colon Medical Ce nter (procedure) [code = 229167733] Future Scheduled 1950 Screening [facility] malignant [facility] Test 00:00:00 neoplasm of colon Medical Ce nter (procedure) [code = 101423180] Future Scheduled 1950 Screening for malignant [facility] Test 00:00:00 neoplasm of colon Medical Ce nter (procedure) [code = 379217146] Future Scheduled 1950 Sigmoidoscopy [code = [facility]:00 Sigmoidoscopy] Medical Cente r Future Scheduled 1950 CT Colonography (combo) [facility] Test 00:00:00 [code = CT Colonography Medi [facility] Center (combo)] Future Scheduled 1951 Screening for malignant [facility] Test 00:00:00 neoplasm of colon Medical Ce nter (procedure) [code = 772759212] Future Scheduled 1950 Screening for malignant [facility] Test 00:00:00 neoplasm of colon Medical Ce nter (procedure) [code = 666433266] Future Scheduled 1950 Screening for malignant [facility] Test 00:00:00 neoplasm of colon Medical Ce nter (procedure) [code = 115287964] Future Scheduled 1950 Screening for malignant [facility] Test 00:00:00 neoplasm of colon Medical Ce nter (procedure) [code = 419569846] Future Scheduled 1950 Sigmoidoscopy [code = [facility] 00:[facility]:00 Sigmoidoscopy] Medical Cente r Future Scheduled 1950 CT Colonography (combo) [facility] Test 00:00:00 [code = CT Colonography Medi trudy Center (combo)] Future Scheduled 1951 Screening for malignant [facility] Test 00:00:00 neoplasm of colon Medical Ce nter (procedure) [code = 207981243] Future Scheduled 1950 Screening for malignant [facility] Test 00:00:00 neoplasm of colon Medical Ce nter (procedure) [code = 907716323] Future Scheduled 1950 Screening for malignant [facility] Test 00:00:00 neoplasm of colon Medical Ce nter (procedure) [code = 070821995] Future Scheduled 1951 Screening for malignant [facility] Test 00:00:00 neoplasm of colon Medical Ce nter (procedure) [code = 970224837] Future Scheduled 1950 Sigmoidoscopy [code = [facility] 00:00:00 Sigmoidoscopy] Medical Cente r Future Scheduled 1951 CT Colonography (combo) [facility] Test 00:00:00 [code = CT Colonography Medi trudy Center (combo)] Future Scheduled 1951 Screening for malignant [facility] Test 00:00:00 neoplasm of colon Medical Ce nter (procedure) [code = 909025349] Future Scheduled 1951 Screening for malignant [facility] Test 00:00:00 neoplasm of colon Medical Ce nter (procedure) [code = 645648223] Future Scheduled 1951 Screening for malignant [facility] Test 00:00:00 neoplasm of colon Medical Ce nter (procedure) [code = 345420960] Future Scheduled 1951 Screening for malignant [facility] Test 00:00:00 neoplasm of colon Medical Ce nter (procedure) [code = 235910869] Future Scheduled 1950 Sigmoidoscopy [code = [facility] 00:00:00 Sigmoidoscopy] Medical Cente r Future Scheduled 1950 CT Colonography (combo) [facility] Test 00:00:00 [code = CT Colonography [facility] (combo)] Future Scheduled 1950 Screening for malignant [facility] Test 00:00:00 neoplasm of colon Medical Ce nter (procedure) [code = 456553159] Future Scheduled 1950 Screening for malignant [facility] Test 00:00:00 neoplasm of colon Medical Ce nter (procedure) [code = 517845355] Future Scheduled 1951 Screening for malignant [facility] Test 00:00:00 neoplasm of colon Medical Ce nter (procedure) [code = 980071472] Future Scheduled 1951 Screening for malignant [facility] Test 00:00:00 neoplasm of colon Medical Ce nter (procedure) [code = 481991317] Future Scheduled 1950 Sigmoidoscopy [facility]code [facility] 00:[facility] Sigmoidoscopy] Medical Cente r Encounters Start End Encounter Admission Attending Care Care Encounter Source Date/Time Date/Time Type Type Clinicians Facility Department ID 2023-06-06 2023-06-06 Outpatient FOG_Stocks_ AOSM AOSM [id number] Doreen 00:00:00 00:00:00 [facility] [id number] [facility] 2023-05-30 2023-05-30 Outpatient FOG_Stocks_ AOSM AOSM [id number] Doreen 00:00:00 00:00:00 Bandar [id number] [facility] 2023-05-30 2023-05-30 Outpatient FOG_Stocks_ AOSM AOSM [id number] Doreen 00:00:00 00:00:00 Bandar [id number] [facility] 2023-05-06 2023-05-06 Outpatient FOG_Stocks_ AOSM AOSM [id number] Doreen 00:00:00 00:00:00 [facility]ar [id number] [facility] 2023-05-06 2023-05-06 Outpatient FOG_Stocks_ AOSM AOSM [id number] Doreen 00:00:00 00:00:00 Bandar [id number] [facility] 2023-04-25 2023-04-25 Outpatient FOG_Stocks_ AOSM AOSM [id number] Doreen 00:00:00 00:00:00 Bandar [id number] [facility] 2023-04-25 2023-04-25 Outpatient FOG_Stocks_ AOSM AOSM [id number] Doreen 00:00:00 00:00:00 Bandar [id number] [facility] 2023-04-11 2023-04-12 Inpatient EL Stocks, HCATO SURG [id number] [facility] 13:25:00 13:34:00 [facility] 2023-04-11 2023-04-11 Outpatient Stocks, HCACL LABO [id number] [facility] 17:04:00 17:04:00 Jeremiah [facility] 2023-04-11 2023-04-11 Outpatient FOG_Stocks_ AOSM AOSM [id number] Doreen 00:00:00 00:00:00 Bandar [id number] [facility] 2023-04-11 2023-04-11 Outpatient FOG_Stocks_ AOSM AOSM [id number] Doreen 00:00:00 00:00:00 Bandar [id number] [facility] 2023-04-07 2023-04-07 Outpatient FOG_Stocks_ AOSM AOSM [id number] Doreen 00:00:00 00:00:00 Bandar [id number] [facility] 2023-03-16 2023-03-16 Outpatient FOG_Stocks_ AOSM AOSM [id number] Doreen 00:00:00 00:00:00 Bandar [id number] [facility] 2023-02-24 2023-02-24 Outpatient FOG_Stocks_ AOSM AOSM [id number] Doreen 00:00:00 00:00:00 Bandar [id number] [facility] 2023-02-22 2023-02-22 Outpatient FOG_Bennett AOSM AOSM [id number] Doreen 00:00:00 00:00:00 _Mic [id number] [facility] 2023-02-21 2023-02-21 Outpatient FOG_Bennett AOSM AOSM [id number] Doreen 00:00:00 00:00:00 _Mic [id number] [facility] 2023-01-24 2023-01-29 [facility] [id number] 05:21[facility]00 11:56:00 [facility] 2023-01-29 [facility] [id number] 05:21:00 11:56:00 [facility]-24 2023-01-29 Inpatient ER [facility] Pulmonology [id number] [facility] 05:21:00 11:56:00 [facility] 2023-01-24 2023-01-24 Travel [facility] [id number] [facility] 00[facility]00 [facility] 2023-01-24 2023-01-24 Orders [facility] [id number] 00:00:00 00:00:00 Only [facility] 2023-01-24 2023-01-24 Travel [facility] [id number] [facility] 00[facility]00 [facility] 2023-01-24 2023-01-24 Orders [facility] [id number] 00:00:00 00:00:00 Only [facility] Results Test Description Test Time Test Comments Results Result Comments Source THROMBOPLASTIN TIME PARTIAL 2023-04-11 10:31:00 Test Item Value Reference Range Interpretation Comme nts PTT ACTIVATED (test code = APTT) 34.0 secs 25.1-36.5 N SPECIMEN COMMENT: PREIS PATIENT ON ANTICOAGULANTS ? YLIST ANTICOAGULANT/ANTI PLT MEDICATION : AspirinHas Lab been notified if Patient is on Heparin Drip? NOSPECIMEN COMMENT: PRE SURGPROTHROMBIN [id number] 10:31:00 Test Item Value Reference Range Interpretation [...] NOSPECIMEN COMMENT: PRE SURGANTI-MITOCHONDRIAL AB, REFLEX TO [id number] 14:45:07 Test Item Value Reference Range Interpretation Comments SCAN RESULT (test code = SEE RESULTS BELOW [id number]) BLOOD [id number] 13:00:49 Test Item Value Reference Range Interpretation Comments CULTURE (BEAKER) (test No growth in 5 days code = 1095) BLOOD [id number] 13:00:49 Test Item Value Reference Range Interpretation Comments CULTURE (BEAKER) (test No growth in 5 days code = 1095) COMPREHENSIVE METABOLIC [id number] 06:31:09 Test Item Value Reference Range Interpretation [...] not appl icable for dialysis patien ts Agriculture Manager ID - [id number] W/PLT COUNT & AUTO [id number] 05:48:29 Test Item Value Reference Range Interpretation [...] PERCENT (BEAKER) (test code = 2801) POC-Glucose [id number] 05:39:29 Test Item Value Reference Range Interpretation Comments POC-Glucose Meter (test 126 mg/dL 70-110 H : FLORENCIO GONZALEZ AT [facility] code = 1538) [address] [place] [address]34: Agriculture Manager/Techni sarah ID = [id number] for Moore, Joanne Lab Interpretation (test Abnormal code = 82363-6) [facility]-Glucose [id number] 05:39:29 Test Item Value Reference Range Interpretation Comments POC-Glucose Meter (test 126 mg/dL 70-110 H : TE STED AT [facility] code = 1538) [address] [place] [address]: Agriculture Manager/Techni sarah ID = [id number] for Moore, Joanne Lab Interpretation (test Abnormal code = 29040-7) [facility]-Glucose [id number] 05:39:29 Test Item Value Reference Range Interpretation Comments POC-Glucose Meter (test 126 mg/dL 70-110 H : TE STED AT [facility] code = 1538) [address] [place] [address]: Agriculture Manager/Techni sarah ID = [id number] for Moore, Joanne Lab Interpretation (test Abnormal code = 43587-6) [facility] [id number] 05:39:29 Test Item Value Reference Range Interpretation Comments POC-Glucose Meter (test 126 mg/dL 70-110 H : TE STED AT [facility] code = 1538) [address] [place] [address]: Agriculture Manager/Techni sarah ID = [id number] for Moore, Joanne Lab Interpretation (test Abnormal code = 00821-2) [facility] [id number] 05:39:29 Test Item Value Reference Range Interpretation Comments POC-Glucose Meter (test 126 mg/dL 70-110 H : TE STED AT [facility] code = 1538) [address] [place] [address]: Agriculture Manager/Techni sarah ID = [id number] for Moore, Joanne Lab Interpretation (test Abnormal code = 63841-8) [facility]-GLUCOSE [id number] 05:39:29 Test Item Value Reference Range Interpretation Comments POC-GLUCOSE METER 126 mg/dL 70-110 H : TESTED A T [facility] [address] (BEAKER) (test code [facility], = 1538) [place] [address]: Agriculture Manager/Techni sarah ID = [id number] for Joanne Alexander POCT-GLUCOSE [id number] 20:44:34 Test Item Value Reference Range Interpretation Comments POC-GLUCOSE METER 128 mg/dL 70-110 H : TESTED A T [facility] [address] (BEAKER) (test code [facility] [address] [facility], = 1538) [place] [address]: Agriculture Manager/Techni sarah ID = [id number] for Joanne Alexander POCT-GLUCOSE [id number] 16:24:13 Test Item Value Reference Range Interpretation Comments POC-GLUCOSE METER 198 mg/dL 70-110 H : TESTED A T [facility] [address] (BEAKER) (test code [address] [facility], = 1538) [place] [address]: Agriculture Manager/Techni sarah ID = [id number] for Vicente Quinn POCT-GLUCOSE [id number] 12:17:57 Test Item Value Reference Range Interpretation Comments POC-GLUCOSE METER 137 mg/dL 70-110 H : TESTED A T [facility] [address] (BEAKER) (test code [address] [facility], = 1538) [place] [address]: Agriculture Manager/Techni sarah ID = [id number] for Vicente Quinn COMPREHENSIVE METABOLIC [id number] 05:47:50 Test Item Value Reference Range Interpretation [...] (test code = 347) EGFR (BEAKER) 46 Interpretati on of eGFR (test code = 1092) mL/min/1.73 [...] not appl icable for dialysis patien ts Agriculture Manager ID - [id number] W/PLT COUNT & AUTO [id number] 05:35:47 Test Item Value Reference Range Interpretation [...] PERCENT (BEAKER) (test code = 2801) POCT-GLUCOSE [id number] 21:24:11 Test Item Value Reference Range Interpretation Comments POC-GLUCOSE METER 139 mg/dL 70-110 H : TESTED A T [facility] [address] (BEAKER) (test code [facility], = 1538) [place] [address]: Agriculture Manager/Techni sarah ID = [id number] for Kranthi Aragon POCT-GLUCOSE [id number] 16:59:37 Test Item Value Reference Range Interpretation Comments POC-GLUCOSE METER 128 mg/dL 70-110 H : TESTED A T [facility] [address] (BEAKER) (test code [facility], = 1538) [place] [address]: Agriculture Manager/Techni sarah ID = [id number] for A Tess dyea [id number] 16:28:15 Test Item Value Reference Range Interpretation Comments AMMONIA (BEAKER) (test code = 348) 23 mol/L 12-72 Agriculture Manager ID - [id number], CHEST, 1 VIEW, NON [id number] 13:51:00Reason for exam:->acute hypoxic respiratory failureShould this be performed at the bedside?->YesCHI [facility] : 1950 Sex: MFINAL REPORT Chest AP portable COMPARISON STUDY: 01/25/2023 History provided: Acute hypoxicrespiratory failure Degree of inspiration is poor. Heart size normal. Right basilar subsegmental atelectasis persists. Lungs otherwise clear and vascularity normal. Signed: Jesus Manuel Mcneill MDReport Verified Date/Time: 01/27/2023 13:51:10 Reading Location: [facility] Diagnostic Imaging Reading Room [place] [address] -GLUCOSE [id number] 12:58:31 Test Item Value Reference Range Interpretation Comments POC-GLUCOSE METER 130 mg/dL 70-110 H : TESTED A T [facility] [address] (BEAKER) (test code [facility], = 1538) [place] [address]: Agriculture Manager/Techni sarah ID = [id number] for A Eide dye HEPATIC FUNCTION [id number] 10:50:18 Test Item Value Reference Range Interpretation [...] code = 202 U/L 6-50 H 347) Agriculture Manager ID - [id number], ABDOMEN, [id number] 08:54:00Unlisted Reason for Exam - Click Yes and Enter Reason Below->No [facility] : 1950 Sex: MFINAL [...] but without other findings to suggest obstruction. [place] phenomenon from a prior cholecystectomy is possible. 2.Geographic fatty infiltration of the liver 3.Moderate splenomegaly Signed: Madhu Leblanc MDReport Verified Date/Time: 01/27/2023 08:54:01 Reading Location: [facility] [id number] Ortho Consult Reading Room BASIC METABOLIC [id number] 06:39:37 Test Item Value Reference Range Interpretation [...] eGFR (test code = mL/min/1.73 values Stage D escription 1092) sq m Result G1 Lay l [...] not appl icable for dialysis patien ts Agriculture Manager ID - [id number] W/PLT COUNT & AUTO [id number] 06:11:02 Test Item Value Reference Range Interpretation [...] PERCENT (BEAKER) (test code = 2801) POCT-GLUCOSE [id number] 05:52:43 Test Item Value Reference Range Interpretation Comments POC-GLUCOSE METER 135 mg/dL 70-110 H : TESTED A T [facility] [address] (BEAKER) (test code [facility], = 1538) [place] [address]: Agriculture Manager/Techni sarah ID = [id number] for Karmen Lara COVID [id number] 22:29:18 Test Item Value Reference Range Interpretation Comments SARS COVID ANTIGEN Negative Negative, (test code = 71295-6) Presumptive Positive WESLY (test code = WESLY) The QuickVue SARS Antigen test does not differentiate between SARS-CoV and SARS-CoV-2. The test has been authorized by the FDA under an EUA for use by authorized laboratories. Lab Interpretation Normal (test code = 06453-8) [facility] [id number] 22:29:18 Test Item Value Reference Range Interpretation Comments SARS COVID ANTIGEN Negative Negative, (test code = 83665-4) Presumptive Positive WESLY (test code = WESLY) The QuickVue SARS Antigen test does not differentiate between SARS-CoV and SARS-CoV-2. The test has been authorized by the FDA under an EUA for use by authorized laboratories. Lab Interpretation Normal (test code = 04039-9) [facility] [id number] 22:29:18 Test Item Value Reference Range Interpretation Comments SARS COVID ANTIGEN Negative Negative, (test code = 92937-5) Presumptive Positive WESLY (test code = WESLY) The QuickVue SARS Antigen test does not differentiate between SARS-CoV and SARS-CoV-2. The test has been authorized by the FDA under an EUA for use by authorized laboratories. Lab Interpretation Normal (test code = 21804-6) [facility] [id number] 22:29:18 Test Item Value Reference Range Interpretation Comments SARS COVID ANTIGEN Negative Negative, (test code = 49069-2) Presumptive Positive WESLY (test code = WESLY) The QuickVue SARS Antigen test does not differentiate between SARS-CoV and SARS-CoV-2. The test has been authorized by the FDA under an EUA for use by authorized laboratories. Lab Interpretation Normal (test code = 12846-3) [facility] [id number] 22:29:18 Test Item Value Reference Range Interpretation Comments SARS COVID ANTIGEN Negative Negative, (test code = 51962-8) Presumptive Positive WESLY (test code = WESLY) The QuickVue SARS Antigen test does not differentiate between SARS-CoV and SARS-CoV-2. The test has been authorized by the FDA under an EUA for use by authorized laboratories. Lab Interpretation Normal (test code = 03678-5) [facility] Hospital[facility]OVI [id number] 22:29:18 Test Item Value Reference Range Interpretation Comments SARS COVID ANTIGEN (test Negative Negative, Presumptive code = 48354547) Positive The QuickVue SARS Antigen test does not differentiate between SARS-CoV and SARS-CoV-2.The test has been authorized by the FDA under an EUA for use by authorized laboratories.CT, CHEST, WITHOUT [id number] 18:58:00Unlisted Reason for Exam - Click Yes and Enter Reason Below->No [facility] : 1950 Sex: MFINAL [...] infection or aspiration excluded. Signed: Schuyler Gomez MDRst[facility] Verified Date/Time: 01/26/2023 18:58:47 POCT-GLUCOSE [id number] 16:50:56 Test Item Value Reference Range Interpretation Comments POC-GLUCOSE METER 209 mg/dL 70-110 H : TESTED A Sally [facility] [address] (BEAKER) (test code [facility], = 1538) [place] [address]: Agriculture Manager/Techni sarah ID = [id number] for Patito Chanel ANTI-NUCLEAR ANTIBODY (NATACHA)2023-01-26 14:13:36 [...] code = 254 U/L 6-50 H 347) Agriculture Manager ID - [id number] [id number] 12:40:21 Test Item Value Reference Range Interpretation Comments POC-GLUCOSE METER 205 mg/dL 70-110 H : TESTED A T [facility] [address] (BEAKER) (test code [facility], = 1538) [place] [address]: Agriculture Manager/Techni sarah ID = [id number] for Edie Beaulieu POCT-GLUCOSE [id number] 06:38:55 Test Item Value Reference Range Interpretation Comments POC-GLUCOSE METER 245 mg/dL 70-110 H : TESTED A T [facility] [address] (BEAKER) (test code [facility], = 1538) [place] [address]: Agriculture Manager/Techni sarah ID = [id number] for Marlen Morin 2D Echo W/Doppler(CW/PW/Color)2023-01-26 06:00:40Ejection FractionSLEH ECHO HEARTLAB [facility] W/Doppler(CW/PW/Color)2023-01-26 06:00:40Ejection FractionSLEH ECHO HEARTLAB [facility] Echo W/Doppler(CW/PW/Color) 2023-01-26 06:00:40Ejection FractionSLEH ECHO HEARTLAB [facility] Echo W/Doppler(CW/PW/Color)2023-01-26 06:00:40Ejection FractionSLEH ECHO HEARTLAB [facility] Echo W/Doppler(CW/PW/Color)2023-01-26 06:00:40Ejection FractionSLEH ECHO HEARTLAB [facility] W/PLT COUNT & AUTO [id number] 05:48:40 Test Item Value Reference Range Interpretation [...] (BEAKER) (test code = 2801) BASIC METABOLIC [id number] 05:14:29 Test Item Value Reference Range Interpretation [...] De scription 1092) sq m Result G1 Aly l or high >=90 G2 Mildly decreased 60-89 G3a Mildl y to moderately 45-5 9 G3b Moderately to s everely 30-44 G4 Severl y decreased 15-29 G5 Kidney failure <15Reported eGF R is based on the CKD-EPI 1 equation that d oes not use a race coefficientEsti mated GFR is not as accur ate as Creatinine Geri wong in predicting glom erular filtration rate . Estimated GFR is not appl icable for dialysis patien ts Agriculture Manager ID - VATPOCT-GLUCOSE [id number] 01:41:01 Test Item Value Reference Range Interpretation Comments POC-GLUCOSE METER 253 mg/dL 70-110 H : TESTED A T [facility] [address] (BEAKER) (test code [address], = 1538) [facility][1] 77 384: Agriculture Manager/Techni sarah ID = [id number] for Joelle uyange, Barbara [id number] 22:51:50 Test Item Value Reference Range Interpretation Comments ALPHA-1 ANTITRYPSIN (BEAKER) 337.10 mg/dL 90.00-200.00 H (test code = 502) Agriculture Manager ID - MMOperator ID - MMPOCT-GLUCOSE [id number] 21:48:26 Test Item Value Reference Range Interpretation Comments POC-GLUCOSE METER 223 mg/dL 70-110 H : [place] [address] (BEAKER) (test code [facility], = 1538) [place] [address]: Agriculture Manager/Techni sarah ID = [id number] for Marlen Morin [id number] 20:25:11 Test Item Value Reference Range Interpretation Comments FERRITIN (BEAKER) (test code = 96203.90 ng/mL 22.00-322.00 H 361) Agriculture Manager ID - [id number] ID - [id number], TIBC, % SAT. (WITHOUT FERRITIN) 2023-01-25 19:25:07 Test Item Value Reference Range Interpretation Comments IRON (BEAKER) (test code = 547) 39.0 ug/dL 35.0-175.0 TOTAL IRON BINDING CAPACITY 154 ug/dL 250-550 L (BEAKER) (test code = 769) IRON % SATURATION (2) (BEAKER) 25 % 20-55 (test code = 2590) Agriculture Manager ID - [id number] [id number] 18:42:26 Test Item Value Reference Range Interpretation Comments POC-GLUCOSE METER 257 mg/dL 70-110 H : [place] [address] (BEAKER) (test code [facility], = 1538) [place] [address]: Agriculture Manager/Techni sarah ID = [id number] for Chandana Delaney VENOUS DOPPLER ARMS, [id number] 18:28:00Reason for exam:->bue swellingH[facility] : 1950 Sex: MFINAL [...] upper extremity deep venous thrombosis. Signed: Schuyler Gomez [facility] Verified Date/Time: 01/25/2023 18:28:21 PROCALCITONIN 2023-01-25 15:27:46 Test Item Value Reference Range Interpretation Comments PROCALCITONIN (BEAKER) (test code 2.63 ng/mL <0.05 H = 3036) SEPSIS RISK (ng/mL)Low: 0.05-0.50Intermediate: 0.51-2.00High: >=2.01POCT- GLUCOSE [id number] 12:46:25 Test Item Value Reference Range Interpretation Comments POC-GLUCOSE METER 175 mg/dL 70-110 H : TESTED A T [facility] [address] (BEAKER) (test code [facility], = 1538) [facility][1] 77 384: Agriculture Manager/Techni sarah ID = [id number] for C apps, Dianamarie TSH/FREE T4 IF [id number] 11:36:03 Test Item Value Reference Range Interpretation Comments THYROID STIMULATING HORMONE 0.370 uIU/mL 0.350-5.500 (BEAKER) (test code = 772) Agriculture Manager ID - [id number], CHEST, 1 VIEW, NON [id number] 09:20:00Reason for exam:->resp evalShould this be performed at the bedside?->Yes [facility] : 1950 Sex: MFINAL REPORT Chest AP portable COMPARISON STUDY: 01/24/2023 History provided: Respiratory evaluation Heart size normal. Mild bibasilar atelectatic change. Lungs are poorly expanded but otherwise grossly clear, with vascularity normal. Signed: Jesus Manuel Mcneilleport Verified Date/Time: 01/25/2023 09:20:13 Reading Location: [facility] Radiology Reading Room VENOUS DOPPLER LEGS, [id number] 07:38:00 Reason for exam:->r/o DVT [facility] : 1950 Sex: MFINAL REPORT Bilateral lower extremity venous Doppler History: Assess for deep venous thrombosis Comparison: none Findings: Study is obtained using greenberg scale, compression technique, and color flow/spectral analysis. Within the right lower extremity, nonocclusive deep venous thrombosis is visualized within the right common femoral vein as well as the proximal aspect of the right superficial femoral vein. Visualized portions of the right posterior [...] PHERAL BLOOD SMEAR - PATH REVIEW LAB [id number] 07:24:07 Test Item Value Reference Range Interpretation Comments PERIPHERAL SMR REVIEW Thrombocytopenia. Rare (BEAKER) (test code = platelet clump seen on 2640) smear review. No schistocytes seen. Recommend repeat platelet count. WBCs and RBCs unremarkable. [id number] Stan Diaz M.D. (BEAKER) (test code = (electronic signature) 2793) (MANUAL [...] (test code Normal = 762) U/S, ABDOMINAL, [id number] 05:25:00Abdomen limited area? Add comment if clarification is needed.->Right upper quadrantReason for exam:->elevated LFTsShould this be performed at the bedside?->Yes [facility] : 1950 Sex: MFINAL REPORT History: elevated LFTs Abdominal ultrasound dated 01/24/2023 Comparison: None Comment: Real-time transabdominal ultrasound of the right upper quadrant abdomen was performed. Liver: 18.4 cm , enlarged. Normal echogenicity. No focal lesions. Gallbladder: Absent. Biliary tree: No intrahepatic ductal dilatation. CBD: 8 mm. MPV: 11 mm Pancreas: Obscured by overlying bowel gas. Right kidney: 12.8 x 6.4 x 5.5 cm. Normal [...] if biliary obstruction is clinically suspected. Signed: Nnamdi Romo MDReport Verified Date/Time: 01/25/2023 05:25:03 CBC W/PLT COUNT & AUTO [id number] 04:07:35 Test Item Value Reference Range Interpretation [...] 0-0 (test code = 413) BASIC METABOLIC [id number] 03:55:23 Test Item Value Reference Range Interpretation [...] eGF R is based on the CKD-EPI 202 equation that d oes not use a race coefficientEsti mated GFR is not as accur ate as Creatinine Geri marvin in predicting glom erular filtration rate . Estimated GFR is not appl icable for dialysis patien ts Agriculture Manager ID - VATHEPATIC FUNCTION [id number] 03:55:09 Test Item Value Reference Range Interpretation [...] code = 323 U/L 6-50 H 347) Agriculture Manager ID - VATLACTIC ACID, [id number] 00:15:02 Test Item Value Reference Range Interpretation Comments LACTATE BLOOD VENOUS (2) (BEAKER) 2.08 mmol/L 0.50-2.20 (test code = 2872) Agriculture Manager ID - VATLACTIC ACID, [id number] 21:31:24 Test Item Value Reference Range Interpretation Comments LACTATE BLOOD VENOUS 2.37 mmol/L 0.50-2.20 H Specime n markedly (2) (BEAKER) (test hemolyzed code = 2872) Agriculture Manager ID - JBALLOALLOPOCT-GLUCOSE [id number] 18:42:09 Test Item Value Reference Range Interpretation Comments POC-GLUCOSE METER 164 mg/dL 70-110 H : TESTED A T [facility] [address] (BEAKER) (test code [facility] [address] [facility], = 1538) [place] [address]: Agriculture Manager/Techni sarah ID = [id number] for Stephanie Campbell POCT-GLUCOSE [id number] 18:41:38 Test Item Value Reference Range Interpretation Comments POC-GLUCOSE METER 157 mg/dL 70-110 H : TESTED A T [facility] [address] (BEAKER) (test code [address] [facility], = 1538) [place] [address]: Agriculture Manager/Techni sarah ID = [id number] for Stephanie Campbell LACTIC ACID, [id number] 15:52:58 Test Item Value Reference Range Interpretation Comments LACTATE BLOOD VENOUS 2.52 mmol/L 0.50-2.20 H Specime n slightly (2) (BEAKER) (test hemolyzed code = 2872) Agriculture Manager ID - JBALLOALLOBLOOD GAS, [id number] 15:38:31 Test Item Value Reference Range Interpretation [...] 1819) 40.0 Urinalysis w/Microscopic + Reflex to [id number] 15:05:23 Test Item Value Reference Range Interpretation Comments Color, UA (test code Aletha = 5778-6) Clarity, UA (test Slightly Cloudy code = 5767-9) Specific Davis, UA 1.001-1.035 Specifi c gravity (test code = 5811-5) perform ed on refractometer. pH, UA (test code = 5.0 5.0-8.0 5803-2) Protein, UA (test 100 mg/dL Negative A code = 00731-0) Glucose, UA (test Negative Negative code = 365) Ketones, UA (test Negative Negative code = 2514-8) Bilirubin, UA (test Negative Negative code = 06866-6) Blood, UA (test code Small Negative A = 82912-0) Nitrite, UA (test Negative Negative code = 5802-4) Leukocytes, UA (test Negative Negative code = 5799-2) Urobilinogen, UA (test code = 50132-1) RBC, UA (test code = 22 See_Comment [Autom ated 93024-2) message] The system which generated this result [...] . Bacteria, UA (test Rare code = 50202-7) Mucus (test code = Rare 8247-9) Squam Epithel, UA See_Comment [Automate d (test code = 47600-0) messag e] The system which generated this result transmit annie reference range : /HPF. The reference range was not used to interpret this result as normal/abnormal . Specimen Source (test code = 2795) WESLY (test code = WESLY) Agriculture Manager ID - tech Lab Interpretation Abnormal (test code = 81452-4) [facility] + Reflex to Culture 2023-01-24 15:05:23 Test Item Value Reference Range Interpretation Comments Color, UA (test code Aletah = 5778-6) Clarity, UA (test Slightly Cloudy code = 5767-9) Specific Davis, UA 1.001-1.035 Specifi c gravity (test code = 5811-5) perform ed on refractometer. pH, UA (test code = 5.0 5.0-8.0 5803-2) Protein, UA (test 100 mg/dL Negative A code = 31684-6) Glucose, UA (test Negative Negative code = 365) Ketones, UA (test Negative Negative code = 2514-8) Bilirubin, UA (test Negative Negative code = 31391-0) Blood, UA (test code Small Negative A = 23777-2) Nitrite, UA (test Negative Negative code = 5802-4) Leukocytes, UA (test Negative Negative code = 5799-2) Urobilinogen, UA (test code = 03813-3) RBC, UA (test code = 22 See_Comment [Autom ated 03517-4) message] The system which generated this result [...] . Bacteria, UA (test Rare code = 64172-8) Mucus (test code = Rare 8247-9) Squam Epithel, UA See_Comment [Automate d (test code = 35378-5) messag e] The system which generated this result transmit annie reference range : /HPF. The reference range was not used to interpret this result as normal/abnormal . Specimen Source (test code = 2795) WESLY (test code = WESLY) Agriculture Manager ID - tech Lab Interpretation Abnormal (test code = 40594-4) [facility] + Reflex to Culture 2023-01-24 15:05:23 Test Item Value Reference Range Interpretation Comments Color, UA (test code Aletha = 5778-6) Clarity, UA (test Slightly Cloudy code = 5767-9) Specific Davis, UA 1.001-1.035 Specifi c gravity (test code = 5811-5) perform ed on refractometer. pH, UA (test code = 5.0 5.0-8.0 5803-2) Protein, UA (test 100 mg/dL Negative A code = 42674-3) Glucose, UA (test Negative Negative code = 365) Ketones, UA (test Negative Negative code = 2514-8) Bilirubin, UA (test Negative Negative code = 80680-5) Blood, UA (test code Small Negative A = 33766-0) Nitrite, UA (test Negative Negative code = 5802-4) Leukocytes, UA (test Negative Negative code = 5799-2) Urobilinogen, UA (test code = 73974-1) RBC, UA (test code = 22 See_Comment [Autom ated 33599-9) message] The system which generated this result [...] . Bacteria, UA (test Rare code = 88292-6) Mucus (test code = Rare 8247-9) Squam Epithel, UA See_Comment [Automate d (test code = 76739-0) messag e] The system which generated this result transmit annie reference range : /HPF. The reference range was not used to interpret this result as normal/abnormal . Specimen Source (test code = 2795) WESLY (test code = WESLY) Agriculture Manager ID - tech Lab Interpretation Abnormal (test code = 69019-4) [facility]/Microscopic + Reflex to Culture 2023-01-24 15:05:23 Test Item Value Reference Range Interpretation Comments Color, UA (test code Aletha = 5778-6) Clarity, UA (test Slightly Cloudy code = 5767-9) Specific Davis, UA 1.001-1.035 Specifi c gravity (test code = 5811-5) perform ed on refractometer. pH, UA (test code = 5.0 5.0-8.0 5803-2) Protein, UA (test 100 mg/dL Negative A code = 98652-0) Glucose, UA (test Negative Negative code = 365) Ketones, UA (test Negative Negative code = 2514-8) Bilirubin, UA (test Negative Negative code = 84763-2) Blood, UA (test code Small Negative A = 33005-5) Nitrite, UA (test Negative Negative code = 5802-4) Leukocytes, UA (test Negative Negative code = 5799-2) Urobilinogen, UA (test code = 27783-3) RBC, UA (test code = 22 See_Comment [Autom ated 15963-9) message] The system which generated this result [...] . Bacteria, UA (test Rare code = 76791-7) Mucus (test code = Rare 8247-9) Squam Epithel, UA See_Comment [Automate d (test code = 10148-6) messag e] The system which generated this result transmit annie reference range : /HPF. The reference range was not used to interpret this result as normal/abnormal . Specimen Source (test code = 2795) WESLY (test code = WESLY) Agriculture Manager ID - tech Lab Interpretation Abnormal (test code = 60211-8) [facility]lex [facility] Culture 2023-01-24 15:05:23 Test Item Value Reference Range Interpretation Comments Color, UA (test code Aletha = 5778-6) Clarity, UA (test Slightly Cloudy code = 5767-9) Specific Davis, UA 1.001-1.035 Specifi c gravity (test code = 5811-5) perform ed on refractometer. pH, UA (test code = 5.0 5.0-8.0 5803-2) Protein, UA (test 100 mg/dL Negative A code = 52522-1) Glucose, UA (test Negative Negative code = 365) Ketones, UA (test Negative Negative code = 2514-8) Bilirubin, UA (test Negative Negative code = 04948-8) Blood, UA (test code Small Negative A = 76434-2) Nitrite, UA (test Negative Negative code = 5802-4) Leukocytes, UA (test Negative Negative code = 5799-2) Urobilinogen, UA (test code = 97095-0) RBC, UA (test code = 22 See_Comment [Autom ated 17466-8) message] The system which generated this result [...] . Bacteria, UA (test Rare code = 66956-5) Mucus (test code = Rare 8247-9) Squam Epithel, UA See_Comment [Automate d (test code = 71121-7) alberto escamilla] The system which generated this result transmit annie reference range : /HPF. The reference range was not used to interpret this result as normal/abnormal . Specimen Source (test code = 2795) WESLY (test code = WESLY) Agriculture Manager ID - tech Lab Interpretation Abnormal (test code = 97391-8) [facility] URINE [id number] 15:05:23 Test Item Value Reference Range Interpretation [...] = 516) SOURCE(BEAKER) (test code = 2795) Agriculture Manager ID - techPOCT-GLUCOSE [id number] 13:19:32 Test Item Value Reference Range Interpretation Comments POC-GLUCOSE METER 184 mg/dL 70-110 H : TESTED A T [facility] [address] (BEAKER) (test code [facility] [address] [facility], = 1538) [place] [address] 384: Agriculture Manager/Techni sarah ID = [id number] for Stephanie Campbell TROPONIN [id number] 12:35:19 Test Item Value Reference Range Interpretation [...] failure, acidosis, acute neurological disease, and persistent tachyarrhythmia.Agriculture Manager ID - [id number] ACID, VENOUS 2023-01-24 12:30:33 Test Item Value Reference Range Interpretation Comments LACTATE BLOOD VENOUS 2.53 mmol/L 0.50-2.20 H Specime n slightly (2) (BEAKER) (test hemolyzed code = 2872) Agriculture Manager ID - [id number] PANEL, [id number] 12:06:19 Test Item Value Reference Range Interpretation Comments HEPATITIS A IGM ANTIBODY (BEAKER) Nonreactive Nonreactive (test code = 498) HEPATITIS B CORE IGM ANTIBODY Nonreactive Nonreactive (BEAKER) (test code = 645) HEPATITIS C ANTIBODY (BEAKER) Nonreactive Nonreactive (test code = 367) HEPATITIS B SURFACE ANTIGEN (2) Nonreactive Nonreactive (BEAKER) (test code = 2585) Agriculture Manager ID - JSLIPID [id number] 11:56:19 Test Item Value Reference Range Interpretation [...] Borderline 130-159 High 160-189 Very High >=190 Agriculture Manager ID - [id number], CHEST, 1 VIEW, NON [id number] 11:41:00Reason for exam:- >Sortness of breathShould this be performed at the bedside?->Yes [facility] : 1950 Sex: MFINAL REPORT HISTORY: Shortness of breath COMPARISON: None FINDINGS: The lungs are clear. No pleural effusions or pneumothorax. The heart shadow is normal in size. The thoracic aorta is mildly tortuous. 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 IMPRESSION: No evidence of acute cardiopulmonary disease. Signed: Cally Banuelos [facility] Verified Date/Time: 01/24/2023 11:41:40 LACTIC ACID, [id number] 10:45:25 Test Item Value Reference Range Interpretation Comments LACTATE BLOOD VENOUS 1.86 mmol/L 0.50-2.20 Specime n slightly (2) ([facility]) (test hemolyzed code = 2872) Agriculture Manager ID - [id number] 09:39:58 Test Item Value Reference Range Interpretation [...] failure, acidosis, acute neurological disease, and persistent tachyarrhythmia.Agriculture Manager ID - [id number] LEVEL 2023-01-24 09:13:44 Test Item Value Reference Range Interpretation Comments ACETAMINOPHEN LEVEL < ug/mL 10.0-30.0 L Specimen moderately (BEAKER) (test code = hemoly zed 344) Agriculture Manager ID - [id number] 09:00:20 Test Item Value Reference Range Interpretation Comments SALICYLATE LEVEL (BEAKER) (test code < mg/dL 20.0-30.0 L = 764) Agriculture Manager ID - [id number] 08:48:13 Test Item Value Reference Range Interpretation Comments AMMONIA (BEAKER) (test code = 348) 49 mol/L 12-72 Agriculture Manager ID - [id number] 08:12:08 Test Item Value Reference Range Interpretation Comments PROTIME (BEAKER) (test code = 13.3 seconds 11.8-14.4 759) INR (BEAKER) (test code = 370) 0.97 1.20-1.50 L RECOMMENDED COUMADIN/WARFARIN INR THERAPY RANGESSTANDARD DOSE: 2.0 - 3.0 Includes: PROPHYLAXIS for venous thrombosis, systemic embolization; TREATMENT for venous thrombosis and/or pulmonary embolus.HIGH RISK: Target INR is 2.5-3.5 for patients with mechanical heart valves.[id number] 08:09:44 Test Item Value Reference Range Interpretation [...] exclusion of thrombosis is within 95-100% range. [id number] 08:04:09 Test Item Value Reference Range Interpretation Comments ETHANOL (BEAKER) (test code = 400) < mg/dL <=10 Agriculture Manager ID - [id number] drug screen, [id number] 08:02:57 Test Item Value Reference Range Interpretation Comments Barbiturate Screen Negative Negative (test code = 05602-4) Benzodiazepine Screen Negative Negative (test code = 04491-2) Cocaine (Metab.) Negative Negative Screen (test code = 3397-7) Methadone Screen (test Negative Negative code = 08817-5) Opiate Screen (test Negative Negative code = 16340-5) Cannabinoid Screen Negative Negative (test code = 12502-2) Amph/Methamph Screen Negative Negative (test code = 75062-5) Phencyclidine Screen Negative Negative (test code = 60673-5) pH, UA (test code = 6.0 5.0-8.0 5803-2) WESLY (test code = WESLY) DRUG CUTOFF CONC.Cocaine 300 ng/mL Cannabinoid 50 ng/mLBenzodiazepine 200 ng/mLBarbiturate 200 ng/mLPhencyclidine 25 ng/mLOpiate 300 ng/mLMethadone 300 ng/mLAmphetamine/ 1000 ng/mL Methamphetamine This assay provides an unconfirmed qualitative test result for the clinical management of patients in emergency situations. Chain of custody not maintained. Some fiam-lme-gilpive medications, as well as adulterants, may cause inaccurate results. Clinical correlation should be applied. A more comprehensive drug screen or confirmation of a detected drug may be performed upon request.Agriculture Manager ID - [id number] Lab Interpretation Normal (test code = 70263-3) [facility], [id number] 08:02:57 Test Item Value Reference Range Interpretation Comments Barbiturate Screen Negative Negative (test code = 28025-0) Benzodiazepine Screen Negative Negative (test code = 33054-1) Cocaine (Metab.) Negative Negative Screen (test code = 3397-7) Methadone Screen (test Negative Negative code = 61150-0) Opiate Screen (test Negative Negative code = 07376-7) Cannabinoid Screen Negative Negative (test code = 68711-6) Amph/Methamph Screen Negative Negative (test code = 46939-7) Phencyclidine Screen Negative Negative (test code = 27133-7) pH, UA (test code = 6.0 5.0-8.0 5803-2) WESLY (test code = WESLY) DRUG CUTOFF CONC.Cocaine 300 ng/mL Cannabinoid 50 ng/mLBenzodiazepine 200 ng/mLBarbiturate 200 ng/mLPhencyclidine 25 ng/mLOpiate 300 ng/mLMethadone 300 ng/mLAmphetamine/ 1000 ng/mL Methamphetamine This assay provides an unconfirmed qualitative test result for the clinical management of patients in emergency situations. Chain of custody not maintained. Some yhom-ktw-ftvhyuz medications, as well as adulterants, may cause inaccurate results. Clinical correlation should be applied. A more comprehensive drug screen or confirmation of a detected drug may be performed upon request.Agriculture Manager ID - [id number] Lab Interpretation Normal (test code = 64184-5) [facility], [id number] 08:02:57 Test Item Value Reference Range Interpretation Comments Barbiturate Screen Negative Negative (test code = 12857-3) Benzodiazepine Screen Negative Negative (test code = 02854-1) Cocaine (Metab.) Negative Negative Screen (test code = 3397-7) Methadone Screen (test Negative Negative code = 97184-3) Opiate Screen (test Negative Negative code = 22598-5) Cannabinoid Screen Negative Negative (test code = 38735-9) Amph/Methamph Screen Negative Negative (test code = 69383-2) Phencyclidine Screen Negative Negative (test code = 51267-9) pH, UA (test code = 6.0 5.0-8.0 5803-2) WESLY (test code = WESLY) DRUG CUTOFF CONC.Cocaine 300 ng/mL Cannabinoid 50 ng/mLBenzodiazepine 200 ng/mLBarbiturate 200 ng/mLPhencyclidine 25 ng/mLOpiate 300 ng/mLMethadone 300 ng/mLAmphetamine/ 1000 ng/mL Methamphetamine This assay provides an unconfirmed qualitative test result for the clinical management of patients in emergency situations. Chain of custody not maintained. Some fziu-ydh-iyljsii medications, as well as adulterants, may cause inaccurate results. Clinical correlation should be applied. A more comprehensive drug screen or confirmation of a detected drug may be performed upon request.Agriculture Manager ID - [id number] Lab Interpretation Normal (test code = 28171-5) [facility], [id number] 08:02:57 Test Item Value Reference Range Interpretation Comments Barbiturate Screen Negative Negative (test code = 09782-5) Benzodiazepine Screen Negative Negative (test code = 19603-3) Cocaine (Metab.) Negative Negative Screen (test code = 3397-7) Methadone Screen (test Negative Negative code = 71252-9) Opiate Screen (test Negative Negative code = 25374-7) Cannabinoid Screen Negative Negative (test code = 87299-9) Amph/Methamph Screen Negative Negative (test code = 90922-9) Phencyclidine Screen Negative Negative (test code = 64874-7) pH, UA (test code = 6.0 5.0-8.0 5803-2) WESLY (test code = WESLY) DRUG CUTOFF CONC.Cocaine 300 ng/mL Cannabinoid 50 ng/mLBenzodiazepine 200 ng/mLBarbiturate 200 ng/mLPhencyclidine 25 ng/mLOpiate 300 ng/mLMethadone 300 ng/mLAmphetamine/ 1000 ng/mL Methamphetamine This assay provides an unconfirmed qualitative test result for the clinical management of patients in emergency situations. Chain of custody not maintained. Some jthh-gkc-nonzrvz medications, as well as adulterants, may cause inaccurate results. Clinical correlation should be applied. A more comprehensive drug screen or confirmation of a detected drug may be performed upon request.Agriculture Manager ID - [id number] Lab Interpretation Normal (test code = 17443-8) [facility], [id number] 08:02:57 Test Item Value Reference Range Interpretation Comments Barbiturate Screen Negative Negative (test code = 49311-1) Benzodiazepine Screen Negative Negative (test code = 32338-2) Cocaine (Metab.) Negative Negative Screen (test code = 3397-7) Methadone Screen (test Negative Negative code = 40796-7) Opiate Screen (test Negative Negative code = 73299-4) Cannabinoid Screen Negative Negative (test code = 45412-4) Amph/Methamph Screen Negative Negative (test code = 61555-6) Phencyclidine Screen Negative Negative (test code = 56078-2) pH, UA (test code = 6.0 5.0-8.0 5803-2) WESLY (test code = WESLY) DRUG CUTOFF CONC.Cocaine 300 ng/mL Cannabinoid 50 ng/mLBenzodiazepine 200 ng/mLBarbiturate 200 ng/mLPhencyclidine 25 ng/mLOpiate 300 ng/mLMethadone 300 ng/mLAmphetamine/ 1000 ng/mL Methamphetamine This assay provides an unconfirmed qualitative test result for the clinical management of patients in emergency situations. Chain of custody not maintained. Some wgoj-bji-jdnwrwg medications, as well as adulterants, may cause inaccurate results. Clinical correlation should be applied. A more comprehensive drug screen or confirmation of a detected drug may be performed upon request.Agriculture Manager ID - [id number] Lab Interpretation Normal (test code = 02105-6) [facility], [id number] 08:02:57 Test Item Value Reference Range Interpretation [...] situations. Chain of custody not maintained. Some mctz-utr-hohpkrx medications, as well as adulterants, may cause inaccurate results. Clinical correlation should be applied. A more comprehensive drug screen or confirmation of a detected drug may be performed upon request.Agriculture Manager ID - [id number] A1C 2023-01-24 07:28:21 Test Item Value Reference Range Interpretation Comments HEMOGLOBIN A1C (BEAKER) (test code = 5.6 % 4.3-6.1 368) Agriculture Manager ID - [id number] NATRIURETIC FACTOR (BNP)2023-01-24 07:08:18 Test Item Value Reference Range Interpretation Comments B-TYPE NATRIURETIC PEPTIDE (BEAKER) 13 pg/mL 0-100 (test code = 700) Agriculture Manager ID - [id number] FUNCTION [id number] 07:03:08 Test Item Value Reference Range Interpretation [...] code = 345 U/L 6-50 H 347) Agriculture Manager ID - [id number] METABOLIC [id number] 07:02:04 Test Item Value Reference Range Interpretation [...] is not appl icable for dialysis patien terry Agriculture Manager ID - [id number] W/PLT COUNT & AUTO [id number] 06:58:17 Test Item Value Reference Range Interpretation [...] (BEAKER) (test code = 2801) LACTIC ACID, [id number] 06:55:44 Test Item Value Reference Range Interpretation Comments LACTATE BLOOD VENOUS 2.31 mmol/L 0.50-2.20 H Specime n markedly (2) (BEAKER) (test hemolyzed code = 2872) Agriculture Manager ID - [id number] gas, [id number] 06:36:46 Test Item Value Reference Range Interpretation Comments pH, Arterial (test code 7.48 7.35-7.45 H = 2744-1) pCO2, Arterial (test 32 See_Comment L [Autom ated message] code = 2019-8) The system [employer] generated this result transmit annie reference range : 35 - 45 mm Hg. The reference range was not used to interpret this result as normal/abnormal . pO2, Arterial (test 76 See_Comment L [Automa annie message] code = 2703-7) The system [employer] generated this result transmit annie reference range [...] 60.0 Lab Interpretation Abnormal (test code = 41655-3) [facility], [id number] 06:36:46 Test Item Value Reference Range Interpretation Comments pH, Arterial (test code 7.48 7.35-7.45 H = 2744-1) pCO2, Arterial (test 32 See_Comment L [Autom ated message] code = 2019-8) The system [employer] generated this result transmit annie reference range : 35 - 45 mm Hg. The reference range was not used to interpret this result as normal/abnormal . pO2, Arterial (test 76 See_Comment L [Automa annie message] code = 2703-7) The system [employer] generated this result transmit annie reference range [...] 60.0 Lab Interpretation Abnormal (test code = 97285-1) [facility], [id number] 06:36:46 Test Item Value Reference Range Interpretation Comments pH, Arterial (test code 7.48 7.35-7.45 H = 2744-1) pCO2, Arterial (test 32 See_Comment L [Autom ated message] code = 2019-) The system [facility] generated this result transmit annie reference range : 35 - 45 mm Hg. The reference range was not used to interpret this result as normal/abnormal . pO2, Arterial (test 76 See_Comment L [Automa annie message] code = 2703-7) The system [employer] generated this result transmit annie reference range [...] 60.0 Lab Interpretation Abnormal (test code = 72511-9) [facility], [id number] 06:36:46 Test Item Value Reference Range Interpretation Comments pH, Arterial (test code 7.48 7.35-7.45 H = 2744-1) pCO2, Arterial (test 32 See_Comment L [Autom ated message] code = 2019-) The system [employer] generated this result transmit annie reference range : 35 - 45 mm Hg. The reference range was not used to interpret this result as normal/abnormal . pO2, Arterial (test 76 See_Comment L [Automa annie message] code = 2703-7) The system [employer] generated this result transmit annie reference range [...] 60.0 Lab Interpretation Abnormal (test code = 70079-6) [facility], [id number] 06:36:46 Test Item Value Reference Range Interpretation Comments pH, Arterial (test code 7.48 7.35-7.45 H = 2744-1) pCO2, Arterial (test 32 See_Comment L [Autom ated message] code = 2019) The system [employer] generated this result transmit annie reference range : 35 - 45 mm Hg. The reference range was not used to interpret this result as normal/abnormal . pO2, Arterial (test 76 See_Comment L [Automa annie message] code = 2703-7) The system [employer] generated this result transmit annie reference range [...] 60.0 Lab Interpretation Abnormal (test code = 42996-5) [facility], [id number] 06:36:46 Test Item Value Reference Range Interpretation Comments PH ARTERIAL (BEAKER) (test code = 7.48 7.35-7.45 H 383) PCO2 ARTERIAL (BEAKER) (test code 32 mm Hg 35-45 L = 384) PO2 ARTERIAL (BEAKER) (test code = 76 mm Hg 80-90 L 385) O2 SATURATION ARTERIAL (BEAKER) 96.2 % 96.0-97.0 (test code = 386) HCO3 ARTERIAL (BEAKER) (test code 23 mmol/L 21-29 = 388) BASE EXCESS ARTERIAL (BEAKER) 0.6 mmol/L -2.0-3.0 (test code = 387) PATIENT TEMPERATURE (BEAKER) (test 37.0 code = 1818) FIO2 (BEAKER) (test code = 1819) 60.0 POCT-GLUCOSE [id number] 05:59:39 Test Item Value Reference Range Interpretation Comments POC-GLUCOSE METER 188 mg/dL 70-110 H : Notified RN/MD: TESTED (BEAKER) (test code AT [facility] [address] [facility] = 1538) [facility] [address]: Agriculture Manager/Techni sarah ID = [id number] for Mari Montaño
--- NOTE | 2023-06-20 09:56 | EDPHYS ---
Physician Documentation [facility] Name: Blake Nixon Age: 73 yrs Sex: Male : 1950 Arrival Date: 06/20/2023 Time: 09:37 Bed 4 Private MD: ED Physician Jaciel Allison HPI: 06/20 09:46 This 73 yrs old Male presents to ER via Unassigned with complaints of ec2 Medication Refill. 09:46 Patient arrives today for medication refill. States that he is on Lexapro, 10 mg daily, ec2 has been on this for 15 years. Patient reports no specific concerns or other complaints. Patient does report some chronic back pain which she is on long-term opiates for. States that this is unchanged from his baseline.. Historical: - PMHx: 10:06 CVA; Hyperlipidemia; Hypertension; ko1 - PSHx: 10:06 Cholecystectomy; knee; Shoulder; ko1 - Immunization history:: Adult Immunizations up to date. - Social history:: Smoking status: Patient denies any tobacco usage or history of. ROS: 09:46 Constitutional: Medication refill ec2 Exam: 09:46 Constitutional: GEN: NAD Head: atraumatic Eyes: EOMI Ears: External ears are ec2 normal. CV: regular rate LUNGS: no respiratory distress ABD: non-distended SKIN: no evidence of rashes MSK: no evidence of trauma NEURO: moves all extremities, ambulatory without issue Vital Signs: 09:52 BP 163 / 98; Pulse 108; Resp 18; Temp 98.3(O); Pulse Ox 99% on R/A; Weight 99.34 kg; em1 Height 6 ft. 4 in. ; 09:52 Body Mass Index 26.66 (99.34 kg, 193.04 cm) em1 MDM: 09:42 Patient medically screened. ec2 09:54 ED course: Patient arrives today due to concern for medication refill. Examination ec2 remarkable for well-appearing nontoxic and appears otherwise pleasant and in no acute distress. I will refill the patient's Lexapro and have him follow-up with his primary care doctor. Return precautions given. Patient does have slight tachycardia with a heart rate of 108 noted, possible the patient's chronic back pain causing limited pain and discomfort however states he has medications appropriately at home and does not need any medications at this time for this.. 09:57 Data reviewed: vital signs. ec2 Administered Medications: No medications were administered Disposition Summary: 06/20/23 09:55 Discharge Ordered Notes: Location: Home ec2 Condition: Stable ec2 Diagnosis - Medication Refill ec2 Discharge Instructions: - Discharge Summary Sheet ec2 Forms: - Medication Reconciliation Form ec2 - Thank You Letter ec2 - Antibiotic Education ec2 - Prescription Opioid Use ec2 - Patient Portal Instructions ec2 - Leadership Thank You Letter ec2 Prescriptions: - escitalopram oxalate 10 mg Oral tablet - take 1 tablet ORAL route daily; 30 tablet; Refills: 0, Product Selection ec2 Permitted Signatures: Gilma Prieto RN RN ko1 Jaciel Allison MD MD ec2 Corrections: (The following items were deleted from the chart) 09:54 09:46 Patient arrives today for medication refill. States that he is on Lexapro, 10 mg ec2 daily, has been on this for 15 years. Patient reports no specific concerns or other complaints.. ec2
--- NOTE | 2023-06-20 09:56 | ER ---
Nurse's Notes [facility] Name: Blake Nixon Age: 73 yrs Sex: Male : 1950 Arrival Date: 06/20/2023 Time: 09:37 Bed 4 Private MD: Diagnosis: Medication Refill Presentation: 06/20 09:55 Chief complaint: Patient states: i need medication refill and my appt isnt for another ko1 2 weeks. Coronavirus screen: At this time, the client does not indicate any symptoms associated with coronavirus-19. Ebola Screen: No symptoms or risks identified at this time. Initial Sepsis Screen: Does the patient meet any 2 criteria? No. Patient's initial sepsis screen is negative. Does the patient have a suspected source of infection? No. Patient's initial sepsis screen is negative. Risk Assessment: Do you want to hurt yourself or someone else? Patient reports no desire to harm self or others. Onset of symptoms was June 20, 2023. 09:55 Method Of Arrival: Ambulatory ko1 09:55 Acuity: GISSEL 5 ko1 Triage Assessment: 10:06 General: Appears in no apparent distress. Behavior is calm, cooperative, appropriate ko1 for age. Pain: Denies pain. Historical: - PMHx: 10:06 CVA; Hyperlipidemia; Hypertension; ko1 - PSHx: 10:06 Cholecystectomy; knee; Shoulder; ko1 - Immunization history:: Adult Immunizations up to date. - Social history:: Smoking status: Patient denies any tobacco usage or history of. Screenin:00 [facility] ED Fall Risk Assessment (Adult) History of falling in the last 3 months, ko1 including since admission Yes- single mechanical fall (1 pt) Confusion or Disorientation No (0 pts) Intoxicated or Sedated No (0 pts) Impaired Gait No (0 pts) Mobility Assist Device Used No (0 pt) Altered Elimination No (0 pt) Score/Fall Risk Level 0 - 2 = Low Risk Oriented to surroundings, Maintained a safe environment, Educated pt \T\ family on fall prevention, incl call for assistance when getting out of bed, Assessed \T\ reinforced patient's understanding of fall precautions, Provided non-skid footwear, Hourly rounding (assess needs \T\ fall precautionary measures) done, Used ambulatory aids as needed (educated on \T\ assisted with), Used gait belt as appropriate. Abuse screen: Denies threats or abuse. Denies injuries from another. Nutritional screening: No deficits noted. Tuberculosis screening: No symptoms or risk factors identified. Assessment: 10:00 Neuro: No deficits noted. Cardiovascular: No deficits noted. Respiratory: No deficits ko1 noted. GI: No deficits noted. : No deficits noted. EENT: No deficits noted. Derm: No deficits noted. Musculoskeletal: No deficits noted. Vital Signs: 09:52 BP 163 / 98; Pulse 108; Resp 18; Temp 98.3(O); Pulse Ox 99% on R/A; Weight 99.34 kg; em1 Height 6 ft. 4 in. ; 09:52 Body Mass Index 26.66 (99.34 kg, 193.04 cm) em1 ED Course: 09:40 Patient arrived in ED. mg5 09:42 Jaciel Allison MD is Attending Physician. ec2 10:00 Patient has correct armband on for positive identification. Bed in low position. Call ko1 light in reach. Provided Education on: na. Pulse ox on. NIBP on. 10:00 No provider procedures requiring assistance completed. Patient did not have IV access ko1 during this emergency room visit. 10:04 Gilma Prieto, BRANDI is Primary Nurse. ko1 10:06 Triage completed. ko1 10:06 Arm band placed on right wrist. Patient placed in an exam room, on a stretcher, on ko1 pulse oximetry, Patient notified of wait time. Administered Medications: No medications were administered Medication: 10:00 VIS not applicable for this client. ko1 Outcome: 09:55 Discharge ordered by . ec2 10:08 Discharged to home ambulatory, ko1 10:08 Condition: stable 10:08 Discharge instructions given to patient, Instructed on discharge instructions, follow up and referral plans. medication usage, Demonstrated understanding of instructions, follow-up care, medications, Prescriptions given X 1, 10:14 Patient left the ED. ko1 Signatures: Greg Snow em1 Gilma Prieto, RN RN ko1 Nesha Urena mg5 Jaciel Allison MD MD ec2
== END 2023-06-20 10:14 | disposition home or self-care (01) ==
LOC: ER 09:37
DX: Z76.0 Encounter for issue of repeat prescription (principal)
CPT/HCPCS: 99283

== ENCOUNTER 2024-06-01 18:47 | Emergency (ER) | payer OTHER ==
--- NOTE | 2024-06-01 21:08 | RAD REPORT ---
EXAM: Right Os Calcis (Calcaneus) Heel HISTORY: PAIN RIGHT COMPARISON: None FINDINGS/IMPRESSION: Tiny calcaneal spurs are present. No aggressive marrow lesion. No radio opaque f oreign body.
--- NOTE | 2024-06-01 21:32 | EDPHYS ---
Physician Documentation [facility] Name: Blake Nixon Age: 74 yrs Sex: Male : 1950 Arrival Date: 06/01/2024 Time: 18:47 Bed 11 Private MD: ED Physician Terrance Houser HPI: 06/01 20:00 This 74 yrs old Male presents to ER via Ambulatory with complaints of FOREIGN BODY IN cp FOOT. 20:00 The patient presents with pain, that is acute. cp 20:00 The complaints affect the heel of right foot. Context: concerned about possible piece cp of glass embedded in heel of right foot. Onset: The symptoms/episode began/occurred today. Historical: - Allergies: 19:40 No Known Allergies; cm10 - PMHx: 19:40 CVA; Hyperlipidemia; Hypertension; cm10 - PSHx: 19:40 Cholecystectomy; knee; Shoulder; cm10 - Immunization history:: Adult Immunizations up to date. - Infectious Disease History:: Denies. - Social history:: Smoking status: Patient denies any tobacco usage or history of. ROS: 20:05 Constitutional: HX per hpi cp 20:05 Constitutional: Negative for fever, 20:05 MS/extremity: Positive for pain, tenderness, of the heel of right foot, 20:05 All other systems are negative, cp Exam: 20:10 Head/Face: Normocephalic, atraumatic. cp 20:10 Constitutional: The patient appears in no acute distress, alert, awake, well developed, well nourished, 20:10 Musculoskeletal/extremity: Extremities: noted in the heel of right foot: tenderness and pain to palpation along lateral side of heel with mild swelling and erythema, no obvious wounds noted, Vital Signs: 19:38 BP 149 / 92; Pulse 97; Resp 18; Temp 98.2(O); Pulse Ox 97% on R/A; Weight 104.33 kg; cm10 Height 6 ft. 4 in. ; Pain 0/10; 21:29 BP 148 / 83; Pulse 87; Resp 16; Temp 98.2; Pulse Ox 97% ; dd2 19:38 Body Mass Index 28.00 (104.33 kg, 193.04 cm) cm10 19:38 Pain Scale: Adult cm10 MDM: 19:54 Patient medically screened. cp 21:00 Differential diagnosis: fracture, foreign body, cellulitis. cp 21:30 Data reviewed: vital signs, nurses notes, radiologic studies, plain films, and as a cp result, I will discharge patient. 21:30 Counseling: I had a detailed discussion with the patient and/or guardian regarding the cp historical points, exam findings, and any diagnostic results supporting the discharge/admit diagnosis, radiology results, to return to the emergency department if symptoms worsen or persist or if there are any questions or concerns that arise at home. 06/01 20:00 Order name: XRAY Heel Os Calcis (calcaneus); Complete Time: 21:18 cp Administered Medications: No medications were administered Disposition Summary: 06/01/24 21:31 Discharge Ordered Notes: Location: Home cp Problem: new cp Symptoms: have improved cp Condition: Stable cp Diagnosis - Pain in right foot cp Followup: cp - With: Private Physician - When: 2 - 3 days - Reason: Worsening of condition Discharge Instructions: - Discharge Summary Sheet cp - Foot Pain cp Forms: - Medication Reconciliation Form cp - Antibiotic Education cp - Prescription Opioid Use cp - Patient Portal Instructions cp - Leadership Thank You Letter cp Prescriptions: - Cephalexin 500 mg Oral Capsule - take 1 capsule ORAL route every 8 hours for 10 days; 30 capsule; Refills: 0, cp Product Selection Permitted Signatures: Dispatcher [employer] EDMN Terrance Grace PA PA cp Martinez, Clarissa, RN RN cm10 Corrections: (The following items were deleted from the chart) 20:01 20:01 Os Calcis (Calcaneus) Heel+RAD.RAD.BRZ ordered. EDMN EDMS 06/02 20:50 20:49 MS/extremity: Positive for pain, tenderness, of the heel of right foot, cp cp 20:50 20:49 Constitutional: Negative for fever, cp cp 20:50 20:49 Constitutional: HX per hpi cp cp 20:52 20:50 Musculoskeletal/extremity: Extremities: noted in the heel of right foot: cp tenderness and pain to palpation along lateral side of heel with mild swelling and erythema, no obvious wounds noted, cp 20:52 20:50 Constitutional: The patient appears in no acute distress, alert, awake, well cp developed, well nourished, cp 20:52 20:50 Head/Face: Normocephalic, atraumatic. cp cp
--- NOTE | 2024-06-01 21:32 | ER ---
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 Pt has pain to his right heel. Coronavirus screen: Client denies travel out of the [place] in the last 14 days. Ebola Screen: Patient denies travel to an Ebola-affected area in the 21 days before illness onset. No symptoms or risks identified at this time. Initial Sepsis Screen: Does the patient meet any 2 criteria? No. Patient's initial sepsis screen is negative. Does the patient have a suspected source of infection? No. Patient's initial sepsis screen is negative. Risk Assessment: Do you want to hurt yourself or someone else? Patient reports no desire to harm self or others. Onset of symptoms was June 01, 2024. 19:38 Method Of Arrival: Ambulatory cm10 19:38 Acuity: GISSEL 4 cm10 Triage Assessment: 19:40 General: Appears in no apparent distress. comfortable, Behavior is calm, cooperative. cm10 Neuro: No deficits noted. Level of Consciousness is awake, alert, obeys commands, Oriented to person, place, time, situation, Appropriate for age. Respiratory: No deficits noted. Airway is patent Respiratory effort is even, unlabored, Respiratory pattern is regular, symmetrical. Historical: - Allergies: 19:40 No Known Allergies; cm10 - PMHx: 19:40 CVA; Hyperlipidemia; Hypertension; cm10 - PSHx: 19:40 Cholecystectomy; knee; Shoulder; cm10 - Immunization history:: Adult Immunizations up to date. - Infectious Disease History:: Denies. - Social history:: Smoking status: Patient denies any tobacco usage or history of. Screenin:[facility] ED Fall Risk Assessment (Adult) History of falling in the last 3 months, dd2 including since admission No falls in past 3 months (0 pts) Confusion or Disorientation No (0 pts) Intoxicated or Sedated No (0 pts) Impaired Gait No (0 pts) Mobility Assist Device Used No (0 pt) Altered Elimination No (0 pt) Score/Fall Risk Level 0 - 2 = Low Risk Oriented to surroundings, Maintained a safe environment, Hourly rounding (assess needs \T\ fall precautionary measures) done. Abuse screen: Denies threats or abuse. Nutritional screening: No deficits noted. Tuberculosis screening: No symptoms or risk factors identified. Assessment: 21:29 General: Appears in no apparent distress. Behavior is calm, cooperative. Neuro: No dd2 deficits noted. Level of Consciousness is awake, alert, obeys commands, Oriented to person, place, time, situation, Appropriate for age. Cardiovascular: No deficits noted. Respiratory: No deficits noted. Airway is patent Respiratory effort is even, unlabored, Respiratory pattern is regular, symmetrical. GI: No deficits noted. No signs and/or symptoms were reported involving the gastrointestinal system. : No deficits noted. No signs and/or symptoms were reported regarding the genitourinary system. EENT: No deficits noted. No signs and/or symptoms were reported regarding the EENT system. Derm:. Derm: Reports pain that is 2 out of 10 on a pain scale. Musculoskeletal: No deficits noted. 21:38 Pain: Complains of pain in rt heel. dd2 Vital Signs: 19:38 BP 149 / 92; Pulse 97; Resp 18; Temp 98.2(O); Pulse Ox 97% on R/A; Weight 104.33 kg; cm10 Height 6 ft. 4 in. ; Pain 0/10; 21:29 BP 148 / 83; Pulse 87; Resp 16; Temp 98.2; Pulse Ox 97% ; dd2 19:38 Body Mass Index 28.00 (104.33 kg, 193.04 cm) cm10 19:38 Pain Scale: Adult cm10 ED Course: 18:49 Patient arrived in ED. jj6 19:40 Triage completed. cm10 19:41 Arm band placed on right wrist. Patient placed in waiting room. cm10 19:54 Terrance Grace PA is PHCP. cp 19:54 Terrance Houser MD is Attending Physician. cp 21:05 XRAY Heel Os Calcis (calcaneus) In Process Unspecified. EDMS 21:29 IDA WARREN, RN is Primary Nurse. dd2 21:29 Patient has correct armband on for positive identification. Bed in low position. Call dd2 light in reach. Side rails up X 1. Provided Education on: call light, procedures. Client placed on continuous cardiac and pulse oximetry monitoring. NIBP monitoring applied. Door closed. Noise minimized. Warm blanket given. Verbal reassurance given. 21:29 No provider procedures requiring assistance completed. Patient did not have IV access dd2 during this emergency room visit. Administered Medications: No medications were administered Medication: 21:29 VIS not applicable for this client. dd2 Outcome: 21:31 Discharge ordered by . mercedez 21:44 Discharged to home ambulatory, dd2 :44 Condition: stable :44 Discharge instructions given to patient, Instructed on discharge instructions, follow up and referral plans. medication usage, Demonstrated understanding of instructions, follow-up care, medications, Prescriptions given X 1, 21:45 Patient left the ED. dd2 Signatures: Dispatcher [employer] EDMS Terrance Grace PA PA cp Jeffries, Jennifer jj6 Martinez, Clarissa RN RN cm10 IDA WARREN RN RN dd2
[2024-06-01 22:04] VITALS: TEMP 98.2; O2SAT 97
[2024-06-01 22:05] VITALS: BP 148/83
== END 2024-06-01 21:45 | disposition home or self-care (01) ==
LOC: ER 18:47
DX: M79.671 Pain in right foot (principal)
CPT/HCPCS: 73650; 99283